=== PATIENT | male | born 1945 | race Caucasian/White ===

== ENCOUNTER 2017-12-05 13:13 | Observation (INO) | payer OTHER, MEDICARE ==
[2017-12-04 13:37] LABS: BASOPHILS # (AUTO) 0.1 (0.0-0.1); BASOPHILS % 0.8 % (0.0-1.0); EOSINOPHILS # (AUTO) 0.1 (0.0-0.4); EOSINOPHILS % 1.9 % (0.0-6.0); HEMATOCRIT 35.2 % (38.2-49.6); HEMOGLOBIN 11.5 g/dL (14.0-18.0); LYMPHOCYTES # (AUTO) 1.3 (1.0-3.2); MEAN CORPUSCULAR HEMOGLOBIN 30.3 pg (28-32); MEAN CORPUSCULAR HGB CONC 32.7 g/dL (31-35); MEAN CORPUSCULAR VOLUME 92.6 fL (81-99); MONOCYTES # (AUTO) 0.7 (0.2-0.8); MONOCYTES % 9.8 % (4.4-11.3); NEUTROPHILS # (AUTO) 4.8 (2.1-6.9); NEUTROPHILS % 66.9 % (38.7-80.0); PLATELET COUNT 327 x10e3/uL (140-360); RED CELL DISTRIBUTION WIDTH 15.8 % (11.7-14.4)
[2017-12-04 14:01] LABS: ALBUMIN 3.9 g/dL (3.5-5.0); ALBUMIN/GLOBULIN RATIO 1.2 (0.8-2.0); ANION GAP 13.3 mmol/L (8-16); CALCIUM 9.4 mg/dL (8.4-10.2); CREATININE, SERUM 1.24 mg/dL (0.72-1.25); POTASSIUM 4.3 mmol/L (3.5-5.1)
[2017-12-04 20:34] LABS: EOSINOPHILS % (MANUAL) 1 % (0-7); LYMPHOCYTES % (MANUAL) 11 % (19-48); MONOCYTES % (MANUAL) 8 % (3.4-9.0); NEUTROPHILS % (MANUAL) 79 % (40-74)
[2017-12-04 20:35] LABS: PLATELET ESTIMATE ADEQUATE; PLATELET MORPHOLOGY COMMENT NORMAL; RBC MORPHOLOGY COMMENT NORMAL
[~2017-12-05] VITALS: Ht 182.9 cm; Wt 87.8 kg
[2017-12-05 12:14] VITALS: BP 133/69
[2017-12-05 12:18] VITALS: BP 133/69
[~2017-12-05 13:13] MED LIST: ALPRAZOLAM 0.5 MG TAB ONE; ALPRAZOLAM 0.5 MG TAB PO ONE; ASPIR 8181 MG PO; CENTRUM SILVER1 EAC3 PO; CINNAMON500 MG PO; DILTIAZEM 24HR180 MG PO; DIPHENHYDRAMINE HCL 25 MG CAP ONE; DIPHENHYDRAMINE HCL 25 MG CAP PO ONE; FENTANYL CITRATE/PF 100MCG/2 ML INJ IV ONE; FENTANYL CITRATE/PF 100MCG/2 ML INJ ONE; FERROUS SULFAT325 M1 PO; FLOMAX0.4 MG PO; HEMATINIC-VITA1 EACH PO; HEPARIN SOD (PORCINE) 1000 UNIT/ML 30ML ONE; HEPARIN SOD/SOD CHLORIDE 2,000 ML ONE; HYDROCODON-ACE1 EA10; HYDROXYCHLOROQ200 MG PO; IOPAMIDOL 300MG/ML 100 ML INFUS..BTL IV ONE; KRILL OIL500 MG PO; LIDOCAINE HCL 2% LOCAL 20 ML VIAL ONE; LIPITOR20 MG; LISINOPRIL20 MG PO; METHSCOPOLAMINE5 MG PO; MIDAZOLAM HCL 2 MG/2 ML VIAL IV STA; MIDAZOLAM HCL 2 MG/2 ML VIAL ONE; NITROGLYCERIN/D5W 200 MCG/ML 250 ML ONE; NORCO 5-325 TA1 EACH PO; OMEPRAZOLE40 MG PO; OS-CAL 500+D T1 EACH; PLAVIX75 MG PO; POTASSIUM CHLO20 ME1 PO; POTASSIUM/MAGNESIUM; PREDNISONE5 MG PO; PROPRANOLOL HCL10 MG PO; SODIUM CHLORIDE 0.9% 1000ML 1,000 ML ONE; SULFASALAZINE500 MG PO; TRIAMTERENE-HCTZ1 EA PO; TURMERIC1 GM; TURMERIC500 MG; VERAPAMIL HCL 2.5 MG/ML 2 ML VIAL ONE; VITAMIN D400 UNI1 PO; [UNRECOGNIZED DRUG - OTHER] PO
[2017-12-05] MEDS ORDERED: SODIUM CHLORIDE 0.9% 1000ML 1,000 ML ONE (13:19)
[2017-12-05] MEDS ORDERED: PROTAMINE SULFATE 10 MG/ML 5 ML VIAL ONE (15:12)
[2017-12-05] MEDS ORDERED: SODIUM CHLORIDE 0.9% 50ML 50 ML ONE (15:12)
--- NOTE | 2017-12-05 16:19 | Operative Report ---
DATE OF PROCEDURE: December 05, 2017 INDICATIONS: Peripheral arterial disease with claudication and critical limb ischemia of the right lower extremity. PROCEDURES PERFORMED 1. Abdominal aortogram. 2. Bilateral lower extremity angiograms. 3. Selective placement of catheter from the left femoral artery to the right superficial femoral artery (3rd-order catheter placement). 4. Additional 3rd-order catheter placement from the left femoral artery to the right anterior tibial artery. 5. Atherectomy and drug-coated balloon angioplasty of the right common and superficial femoral arteries. 6. Angioplasty and stent placement to the right external iliac artery. COMPLICATIONS: None. RECOMMENDATIONS: Dual antiplatelet therapy for life. Aggressive medical therapy for peripheral arterial disease with staged intervention on the left common femoral artery. Access was obtained in the left femoral artery. A 6-Latvian sheath was placed. Abdominal aortogram demonstrated heavily calcified abdominal aorta and iliacs bilaterally. Right external iliac artery had an 80% stenosis. The catheter was then advanced from the left femoral artery to the right superficial femoral artery (3rd-order catheter placement). There was critical, heavily calcified, 80% stenosis of the right common femoral artery. The proximal right superficial femoral artery had a critical 99% stenosis with slow flow. The catheter was then advanced from the left femoral artery to the right anterior tibial artery, confirming 2-vessel runoff via the anterior tibial and peroneal arteries. The posterior tibial artery is occluded. A decision was made to intervene on the right iliac, common femoral, and superficial femoral arteries. The patient received 10,000 units of intra-arterial heparin with an ACT of 284. The lesion was crossed using a Glidewire, and the wire was exchanged to a ViperWire. Orbital atherectomy of the right common femoral and superficial femoral arteries was performed using a 1.5-mm crown. Large amounts of visible thrombus for which manual aspiration thrombectomy was required. Balloon angioplasty of the common and superficial femoral arteries was performed with 6 and 5 mm drug-coated balloon respectively with excellent end result, less than 10% residual stenosis with good flow. The right iliac artery was stented with an 8 x 40 mm self-expanding stent post dilated with a 7-mm balloon with excellent end result and 2-vessel runoff to the right foot. No complications. The left sheath was secured in place. The patient was administered 50 mg of protamine to reverse the heparin effect followed by manual removal of the left groin sheath. The patient will be observed in the hospital overnight. Discussion with family and recommendations as above. Job#: [id number]
[2017-12-05 16:30] VITALS: BP 113/56
[2017-12-05] MEDS ORDERED: HYDROMORPHONE 1MG/1ML INJ IV PRN (17:15)
[2017-12-05] MEDS ORDERED: HYDROMORPHONE 2MG/ML INJ IV PRN (17:30)
[2017-12-05 17:33] VITALS: BP 121/61
[2017-12-05 18:32] VITALS: BP 121/61
[2017-12-05 19:45] VITALS: BP 131/62
[2017-12-05] MEDS: HYDROCODONE/APAP 5MG-325MG TAB PO SCH (21:16)
[2017-12-06 00:20] VITALS: BP 116/58
[2017-12-06 05:00] VITALS: BP 154/67
[2017-12-06 07:10] LABS: BASOPHILS # (AUTO) 0.1 (0.0-0.1); EOSINOPHILS # (AUTO) 0.2 (0.0-0.4); EOSINOPHILS % 2.4 % (0.0-6.0); HEMATOCRIT 33.4 % (38.2-49.6); HEMOGLOBIN 10.9 g/dL (14.0-18.0); LYMPHOCYTES # (AUTO) 1.1 (1.0-3.2); LYMPHOCYTES % 15.6 % (18.0-39.1); MEAN CORPUSCULAR HEMOGLOBIN 30.1 pg (28-32); MEAN CORPUSCULAR HGB CONC 32.6 g/dL (31-35); MEAN CORPUSCULAR VOLUME 92.3 fL (81-99); MONOCYTES # (AUTO) 0.9 (0.2-0.8); MONOCYTES % 13.4 % (4.4-11.3); NEUTROPHILS # (AUTO) 4.4 (2.1-6.9); NEUTROPHILS % 66.1 % (38.7-80.0); PLATELET COUNT 268 x10e3/uL (140-360); RED BLOOD COUNT 3.62 x10e6/uL (4.3-5.7); RED CELL DISTRIBUTION WIDTH 15.7 % (11.7-14.4)
[2017-12-06 07:31] LABS: ANION GAP 11.7 mmol/L (8-16); BLOOD UREA NITROGEN 13 mg/dL (7-26); BUN/CREATININE RATIO 16 (6-25); CALCIUM 8.9 mg/dL (8.4-10.2); CARBON DIOXIDE 24 mmol/L (22-29); CHLORIDE 101 mmol/L (98-107); CREATININE, SERUM 0.79 mg/dL (0.72-1.25); EST GLOMERULAR FILTRATION RATE > 60 ML/MIN (60-); GLUCOSE 89 mg/dL (74-118); POTASSIUM 3.7 mmol/L (3.5-5.1); SODIUM 133 mmol/L (136-145)
[2017-12-06 07:41] VITALS: BP 125/59
[2017-12-06] MEDS ORDERED: LISINOPRIL 20 MG TAB PO SCH (09:00)
[2017-12-06] MEDS ORDERED: HYDROXYCHLOROQUINE SULFATE 200 MG TAB PO SCH (09:00)
[2017-12-06] MEDS ORDERED: PROPRANOLOL HCL 10 MG TAB PO SCH (09:00)
[2017-12-06] MEDS ORDERED: ATORVASTATIN 20 MG TAB PO SCH (09:00)
[2017-12-06] MEDS ORDERED: FERROUS SULFATE 325 MG TAB PO SCH (09:00)
[2017-12-06] MEDS: HYDROCODONE/APAP 5MG-325MG TAB PO SCH (09:00)
[2017-12-06] MEDS ORDERED: SULFASALAZINE 500 MG TAB PO SCH (09:00)
[2017-12-06] MEDS ORDERED: OYST-CAL-D 500MG TABLET PO SCH (09:00)
[2017-12-06] MEDS ORDERED: DILTIAZEM HCL 120 MG CAP CD PO SCH (09:00)
[2017-12-06] MEDS ORDERED: CLOPIDOGREL BISULFATE 75 MG TAB PO SCH (09:00)
[2017-12-06] MEDS ORDERED: DILTIAZEM HCL 180 MG CAP CD PO SCH ×2 (09:00)
[2017-12-06] MEDS ORDERED: TRIAMTERENE/HCTZ 37.5-25 MG TAB PO SCH (09:00)
[2017-12-06] MEDS ORDERED: ASPIRIN 81 MG CHEW TAB PO SCH (09:00)
[2017-12-06] MEDS ORDERED: PREDNISONE 5 MG TAB PO SCH (09:00)
[2017-12-06] MEDS ORDERED: PANTOPRAZOLE SOD 40 MG TABEC PO SCH (09:00)
[2017-12-06] MEDS ORDERED: TAMSULOSIN HCL 0.4 MG CAP PO SCH (09:00)
== END 2017-12-06 11:06 | disposition home or self-care (01) ==
LOC: CATH LAB 13:13 → IMCU 16:29
PROVIDERS: ADMIT Internal Medicine Interventional Cardiology; ATTEND Internal Medicine Interventional Cardiology
DX: I73.9 Peripheral vascular disease, unspecified (principal); I10 Essential (primary) hypertension
CPT/HCPCS: 36140; 36415; 37225; 37226; 75625; 75710; 77002; 80048; 80053; 80061; 85025; 92924; 93005; C1769; C2623; G0378; J1644; J2001; J2250; J2720; J7030; J7512; Q9967

== ENCOUNTER 2017-12-10 21:58 | Inpatient (IN) | payer OTHER, MEDICARE ==
[~2017-12-10] VITALS: Ht 182.9 cm; Wt 91.8 kg
[~2017-12-10 21:58] MED LIST changes: -ALPRAZOLAM 0.5 MG TAB ONE; -ALPRAZOLAM 0.5 MG TAB PO ONE; -DIPHENHYDRAMINE HCL 25 MG CAP ONE; -DIPHENHYDRAMINE HCL 25 MG CAP PO ONE; -FENTANYL CITRATE/PF 100MCG/2 ML INJ IV ONE; -FENTANYL CITRATE/PF 100MCG/2 ML INJ ONE; -HEPARIN SOD (PORCINE) 1000 UNIT/ML 30ML ONE; -HEPARIN SOD/SOD CHLORIDE 2,000 ML ONE; -IOPAMIDOL 300MG/ML 100 ML INFUS..BTL IV ONE; -LIDOCAINE HCL 2% LOCAL 20 ML VIAL ONE; -MIDAZOLAM HCL 2 MG/2 ML VIAL IV STA; -MIDAZOLAM HCL 2 MG/2 ML VIAL ONE; -NITROGLYCERIN/D5W 200 MCG/ML 250 ML ONE; -SODIUM CHLORIDE 0.9% 1000ML 1,000 ML ONE; -VERAPAMIL HCL 2.5 MG/ML 2 ML VIAL ONE
--- OUTSIDE RECORDS SUMMARY | 2017-12-10 22:01 | XMS REPORT | Continuity of Care Document ---
Author Author [facility] Organization [facility] Address [address] [place] [address] Phone Unavailable Care Team Providers Care Licensing Officer Name Role Phone CECILIO TO MD PCP Insurance Providers Guarantor Bin Boo Address [address] [place] [address] Email [email or web address] Payer Aetna Pos Policy Number [id number] Subscriber's Name Yanet Boo Relationship 01 Group Number [id number] Group Name [employer] Effective Date 13 Payer Medicare A & B Policy Number [id number] Subscriber's Name Bin Boo Jr Relationship 18 Self / Same As Patient Group Name RETIRED Effective Date 10 Advance Directives Directive Response Recorded Date/Time Does the patient have an advance directive? No 12/05/17 6:27pm If yes, is advance directive on file with [facility]? No 12/05/17 6:27pm If not on file with [facility] will patient provide a copy? Yes 12/05/17 6:27pm Do you have a Directive to Physician? No 12/04/17 12:43pm Do you have a Medical Power of Truck Dock Material Mover? No 12/04/17 12:43pm Do you have an out of hospital Do Not Resuscitate Order? No 12/04/17 12:43pm Do you have any special needs we should be aware of? No 12/04/17 12:43pm Do you have a support person here with you today? Yes 12/04/17 12:43pm Did patient receive Notice of Privacy Practices? Yes 12/04/17 12:44pm Did patient receive patient rights and responsibilities? Yes 12/04/17 12:44pm Problems No problem information available. Medications Current Home Medications Medication Dose Units Route Directions Days Qty Instructions Start Date Aspirin (Aspir 81) 81 Mg Tablet.dr Mg Oral Daily 30 Atorvastatin Calcium (Lipitor) 20 Mg Tablet 20 Mg Daily 30 Tab Calcium Carbonate/Vitamin D3 (Os-Jaxon 500+D Tablet) 1 Each Tablet 500 Mg Daily 30 Tab Cinnamon Bark (Cinnamon) 500 Mg Capsule 1,000 Mg Oral Daily Clopidogrel Bisulfate (Plavix) 75 Mg Tablet 75 Mg Oral Daily 30 Tab Diltiazem Hcl (Diltiazem 24HR Er) 180 Mg Capcr 300 Mg Oral Daily Ferrous Sulfate 325 Mg Tablet.dr 325 Mg Oral Daily Hydrocodone Bit/Acetaminophen (Sunset 5-325 Tablet) 1 Each Tablet 5 Tab Oral Three Times A Day Hydroxychloroquine Sulfate 200 Mg Tablet 200 Mg Oral Twice A Day Iron/Fa/Vitamin B Comp W-C/Min (Mfjzyiiri-Eseemgk-Wzevwkd Tab) 1 Each Tablet 1 Tab Oral Daily Krill Oil 500 Mg Capsule 500 Mg Oral Daily Lisinopril (Prinavil / Zestril) 20 Mg Tablet 30 Mg Oral Daily Methscopolamine Spraggs 5 Mg Tablet 5 Mg Oral Twice A Day Mu-Vits-Min Th/Lycopene/Lutein (Centrum Silver Tablet) 1 Each Tablet 1 Cap Oral Daily Omeprazole 40 Mg Capsule.dr 40 Mg Oral Daily Potassium/Magnesium 550 Mg PRESCRIBED Prednisone 5 Mg Tablet 5 Mg Oral Daily Propranolol Hcl 10 Mg Tablet 10 Mg Oral Twice A Day Sulfasalazine 500 Mg Tab 500 Mg Oral Twice A Day 30 Tab Tamsulosin Hcl (Flomax*) 0.4 Mg Cap 0.4 Mg Oral Daily 30 Cap Triamterene/Hctz (Triamterene-Hctz 37.5-25 Mg Tb) 1 Ea Tab 37.5 Mg Oral Daily Turmeric 1 Gm Powder Use As Directed PRESCRIBED Past Home Medications Medication Directions Ordered Status Cholecalciferol (Vitamin D) 400 Unit Tab, 500 Mg Oral Daily Discontinued Hematinic Plus , 1 Cap Oral Daily Discontinued Hydrocodone Bit/Acetaminophen (Hydrocodon-Acetaminophen 5-300) 1 Each Tablet, Discontinued Potassium Chloride 20 Meq Tab.er.prt, 550 Mg Oral Daily Discontinued Turmeric Root Extract (Turmeric) 500 Mg Capsule, Discontinued Social History Social History Problem Response Recorded Date/Time Onset Date Status Hx Psychiatric Problems No 12/05/2017 6:27pm Not Applicable Not Applicable Hx Eating Disorder No 12/05/2017 6:27pm Not Applicable Not Applicable Hx Substance Use Disorder No 12/05/2017 6:27pm Not Applicable Not Applicable Hx Depression No 12/05/2017 6:27pm Not Applicable Not Applicable Hx Alcohol Use Y - "BEER SELDOMLY" 12/05/2017 6:27pm Not Applicable Not Applicable Hx Substance Use Treatment No 12/05/2017 6:27pm Not Applicable Not Applicable Hx Physical Abuse No 12/05/2017 6:27pm Not Applicable Not Applicable Smoking Status Start Date Stop Date Former smoker Hospital Discharge Instructions No hospital discharge instruction information available. Plan of Care Discharge Date 12/06/17 11:06am Disposition HOME, SELF-CARE Instructions/Education Provided Post Operative Pain Prescriptions See Medication Section Referrals STEVENSON BRANDON MD (Cardiology) Order Date: 2 Weeks Entered Date: 12/06/2017 10:28am Address: [address] [place] [id number] Functional Status Query Response Date Recorded Assistive Devices None December 05, 2017 6:32pm Ambulation Ability Independent December 05, 2017 6:32pm Toileting Ability Independent December 05, 2017 6:32pm Allergies, Adverse Reactions, Alerts Allergen Type Severity Reaction Status Last Updated Penicillin Allergy Severe rash Active 09/17/16 Immunizations No immunization information available. Vital Signs Acute Vital Signs Vital Response Date/Time Temperature (Fahrenheit) 97.2 degrees F (97.6 - 99.5) 12/06/2017 7:43am Pulse Pulse Rate (adult) 89 bpm (60 - 90) 12/06/2017 7:41am Respiratory Rate 16 bpm (12 - 24) 12/06/2017 7:41am Blood Pressure 125/59 mm Hg 12/06/2017 7:41am Height 6 ft 0 in 12/04/2017 1:30pm Weight 193.56 lb 12/06/2017 12:20am Body Mass Index 26.3 kg/m^2 12/06/2017 12:20am Results Laboratory Results Test Name Result Units Flags Reference Collection Date/Time Result Date/ Time Comments White Blood Count 6.72 x10e3/uL 4.8-10.8 12/06/2017 7:00am 12/06/2017 7 :20am Red Blood Count 3.62 x10e6/uL L 4.3-5.7 12/06/2017 7:00am 12/06/2017 7: 20am Hemoglobin 10.9 g/dL L 14.0-18.0 12/06/2017 7:00am 12/06/2017 7:20am Hematocrit 33.4 % L 38.2-49.6 12/06/2017 7:00am 12/06/2017 7:20am Mean Corpuscular Volume 92.3 fL 81-99 12/06/2017 7:00am 12/06/2017 7: 20am Mean Corpuscular Hemoglobin 30.1 pg 28-32 12/06/2017 7:00am 12/06/2017 7:20am Mean Corpuscular Hemoglobin Concent 32.6 g/dL 31-35 12/06/2017 7:00am 12/06/2017 7:20am Red Cell Distribution Width 15.7 % H 11.7-14.4 12/06/2017 7:00am 2017 7:20am Platelet Count 268 x10e3/uL 140-360 12/06/2017 7:00am 12/06/2017 7: 20am Neutrophils (%) (Auto) 66.1 % 38.7-80.0 12/06/2017 7:00am 12/06/2017 7: 20am Lymphocytes (%) (Auto) 15.6 % L 18.0-39.1 12/06/2017 7:00am 12/06/2017 7 :20am Monocytes (%) (Auto) 13.4 % H 4.4-11.3 12/06/2017 7:00am 12/06/2017 7: 20am Eosinophils (%) (Auto) 2.4 % 0.0-6.0 12/06/2017 7:00am 12/06/2017 7: 20am Basophils (%) (Auto) 1.0 % 0.0-1.0 12/06/2017 7:00am 12/06/2017 7:20am IM GRANULOCYTES % 1.5 % H 0.0-1.0 12/06/2017 7:00am 12/06/2017 7:20am Neutrophils # (Auto) 4.4 2.1-6.9 12/06/2017 7:00am 12/06/2017 7:20am Lymphocytes # (Auto) 1.1 1.0-3.2 12/06/2017 7:00am 12/06/2017 7:20am Monocytes # (Auto) 0.9 H 0.2-0.8 12/06/2017 7:00am 12/06/2017 7:20am Eosinophils # (Auto) 0.2 0.0-0.4 12/06/2017 7:00am 12/06/2017 7:20am Basophils # (Auto) 0.1 0.0-0.1 12/06/2017 7:00am 12/06/2017 7:20am Absolute Immature Granulocyte (auto 0.10 x10e3/uL 0-0.1 12/06/2017 7: 00am 12/06/2017 7:20am Differential Total Cells Counted 100 12/04/2017 1:30pm 12/04/2017 8 :35pm Neutrophils % (Manual) 79 % H 40-74 12/04/2017 1:30pm 12/04/2017 8:35pm Lymphocytes % (Manual) 11 % L 19-48 12/04/2017 1:30pm 12/04/2017 8:35pm Monocytes % (Manual) 8 % 3.4-9.0 12/04/2017 1:30pm 12/04/2017 8:35pm Eosinophils % (Manual) 1 % 0-7 12/04/2017 1:30pm 12/04/2017 8:35pm Reactive Lymphocytes 1 12/04/2017 1:30pm 12/04/2017 8:35pm Platelet Estimate ADEQUATE 12/04/2017 1:30pm 12/04/2017 8:35pm Platelet Morphology Comment NORMAL 12/04/2017 1:30pm 12/04/2017 8: 35pm Red Cell Morphology Comment NORMAL 12/04/2017 1:30pm 12/04/2017 8: 35pm Sodium Level 133 mmol/L L 136-145 12/06/2017 7:00am 12/06/2017 7:42am Potassium Level 3.7 mmol/L 3.5-5.1 12/06/2017 7:00am 12/06/2017 7:42am Chloride Level 101 mmol/L 98-107 12/06/2017 7:00am 12/06/2017 7:42am Carbon Dioxide Level 24 mmol/L 22-29 12/06/2017 7:00am 12/06/2017 7: 42am Anion Gap 11.7 mmol/L 8-16 12/06/2017 7:00am 12/06/2017 7:42am Blood Urea Nitrogen 13 mg/dL 7-12/06/2017 7:00am 12/06/2017 7:42am Creatinine 0.79 mg/dL 0.72-1.25 12/06/2017 7:00am 12/06/2017 7:42am BUN/Creatinine Ratio 16 6-25 12/06/2017 7:00am 12/06/2017 7:42am Estimat Glomerular Filtration Rate > 60 ML/MIN 60- 12/06/2017 7:00am 7:42am Ranges were taken from the National Kidney Disease Education Program and the National Kid[employer] Foundation literature. Reference ranges: 60 or greater: Normal 16-59 (for 3 consecutive months): Chronic kidney disease 15 or less: Kidney failure Glucose Level 89 mg/dL 74-118 12/06/2017 7:00am 12/06/2017 7:42am Calcium Level 8.9 mg/dL 8.4-10.2 12/06/2017 7:00am 12/06/2017 7:42am Total Bilirubin 0.5 mg/dL 0.2-1.2 12/04/2017 1:30pm 12/04/2017 2:04pm Aspartate Amino Transf (AST/SGOT) 27 IU/L 5-34 12/04/2017 1:30pm 2017 2:04pm Alanine Aminotransferase (ALT/SGPT) 24 IU/L 0-55 12/04/2017 1:30pm 11/2017 2:04pm Total Protein 7.2 g/dL 6.5-8.1 12/04/2017 1:30pm 12/04/2017 2:04pm Albumin 3.9 g/dL 3.5-5.0 12/04/2017 1:30pm 12/04/2017 2:04pm Globulin 3.3 g/dL 2.3-3.5 12/04/2017 1:30pm 12/04/2017 2:04pm Albumin/Globulin Ratio 1.2 0.8-2.0 12/04/2017 1:30pm 12/04/2017 2: 04pm Alkaline Phosphatase 53 IU/L 40-150 12/04/2017 1:30pm 12/04/2017 2: 04pm Triglycerides Level 123 MG/DL 0-149 12/04/2017 1:30pm 12/04/2017 2: 04pm Cholesterol Level 162 MD/DL 0-199 12/04/2017 1:30pm 12/04/2017 2:04pm Less than 200 mg/dL Low Risk 201 - 239 mg/dL Borderline Risk 240 mg/dl and greater High Risk LDL Cholesterol 96 MG/DL 60-130 12/04/2017 1:30pm 12/04/2017 2:04pm HDL Cholesterol 41 MG/DL 40-60 12/04/2017 1:30pm 12/04/2017 2:04pm Cholesterol/HDL Ratio 4.0 3.9-4.7 12/04/2017 1:30pm 12/04/2017 2: 04pm Procedures Procedure Status Date Provider(s) FEM/POPL REVAS W/ATHER Completed 05/26/17 STEVENSON BRANDON MD Encounters Encounter Location Arrival/Admit Date Discharge/Depart Date Attending Provider Discharged Inpatient (obs) [facility] 12/05/17 4:29pm 01/18 11:06am STEVENSON BRANDON MD Discharged Inpatient (obs) [facility] 05/26/17 2:45pm 9:11am STEVENSON BRANDON MD
[2017-12-10] MEDS ORDERED: SODIUM CHLORIDE 0.9% 1000ML 1,000 ML IV ONE ×2 (22:15)
[2017-12-10] MEDS ORDERED: DIATRIZOATE MEGL/DIATRIZOA SOD 30 ML BTL PO ONE (22:20)
[2017-12-10 22:26] LABS: BASOPHILS # (AUTO) 0.1 (0.0-0.1); BASOPHILS % 0.7 % (0.0-1.0); EOSINOPHILS # (AUTO) 0.3 (0.0-0.4); EOSINOPHILS % 3.5 % (0.0-6.0); HEMATOCRIT 32.3 % (38.2-49.6); HEMOGLOBIN 10.6 g/dL (14.0-18.0); LYMPHOCYTES # (AUTO) 1.9 (1.0-3.2); LYMPHOCYTES % 21.2 % (18.0-39.1); MEAN CORPUSCULAR HEMOGLOBIN 30.2 pg (28-32); MEAN CORPUSCULAR HGB CONC 32.8 g/dL (31-35); MONOCYTES # (AUTO) 1.5 (0.2-0.8); MONOCYTES % 16.9 % (4.4-11.3); NEUTROPHILS % 56.2 % (38.7-80.0); PLATELET COUNT 324 x10e3/uL (140-360); RED BLOOD COUNT 3.51 x10e6/uL (4.3-5.7); RED CELL DISTRIBUTION WIDTH 16.1 % (11.7-14.4)
[2017-12-10 22:35] LABS: INR 1.05; PROTHROMBIN TIME 14.2 seconds (11.9-14.5)
[2017-12-10 22:36] LABS: PARTIAL THROMBOPLASTIN TIME 36.4 seconds (23.8-35.5)
[2017-12-10 22:42] LABS: ALBUMIN 3.5 g/dL (3.5-5.0); ALBUMIN/GLOBULIN RATIO 0.9 (0.8-2.0); ANION GAP 21.9 mmol/L (8-16); CALCIUM 9.3 mg/dL (8.4-10.2); CREATININE, SERUM 4.5 mg/dL (0.72-1.25); POTASSIUM 3.9 mmol/L (3.5-5.1)
[2017-12-10 22:48] LABS: B-TYPE NATRIURETIC PEPTIDE2 < 10.0 pg/mL (0-100)
--- NOTE | 2017-12-10 22:54 | Diagnostic Imaging Report ---
EXAMINATION: CHEST SINGLE (PORTABLE) INDICATION: Short of breath, weakness. Low blood pressure COMPARISON: None FINDINGS: TUBES and LINES: None. LUNGS: Lungs are not well inflated. There are bibasilar atelectasis. There is mild prominence of the central pulmonary vasculature, consistent with pulmonary venous congestion. PLEURA: No pleural effusion or pneumothorax. HEART AND MEDIASTINUM: Cardiac size is moderately enlarged. There are atherosclerotic calcifications within the aorta. BONES AND SOFT TISSUES: No acute osseous lesion. Soft tissues are unremarkable. UPPER ABDOMEN: No free air under the diaphragm. IMPRESSION: No acute thoracic abnormality. Signed by: Dr. Dong Díaz M.D. on 12/10/2017 10:50 PM
[2017-12-10] MEDS ORDERED: SODIUM CHLORIDE 0.9% 1000ML 1,000 ML IV SCH (23:45)
[2017-12-11] VITALS (7 sets, daily range): BP systolic 109–141; BP diastolic 60–74
--- NOTE | 2017-12-11 00:27 | Diagnostic Imaging Report ---
EXAM: CT Abdomen and Pelvis WITHOUT contrast INDICATION: Retroperitoneal bleeding COMPARISON: None. TECHNIQUE: Abdomen and pelvis were scanned utilizing a multidetector helical scanner from the lung base to the pubic symphysis without administration of IV contrast. Absence of intravenous contrast decreases sensitivity for detection of focal lesions and vascular pathology. Coronal and sagittal reformations were obtained. Routine protocol was performed. IV CONTRAST: None. ORAL CONTRAST: Gastrografin RADIATION DOSE: Total DLP: 457.06 mGy*cm Estimated effective dose: (DLP x 0.015 x size factor) mSv COMPLICATIONS: None FINDINGS: LINES and TUBES: None. LOWER THORAX: Bibasilar atelectasis are present. There is a confluent area of airspace disease in the right lower lobe with air bronchograms best seen on series 2, image 5 and coronal image 78 suspicious for developing infection or neoplasm. HEPATOBILIARY: No focal hepatic lesions. No biliary ductal dilation. GALLBLADDER: No radio-opaque stones or sludge. No wall thickening. SPLEEN: No splenomegaly. PANCREAS: No focal masses or ductal dilatation. ADRENALS: No adrenal nodules KIDNEYS/URETERS: No hydronephrosis. No cystic or solid mass lesions. No stones. GI TRACT: No abnormal distention, wall thickening, or evidence of bowel obstruction. Appendix is normal. PELVIC ORGANS/BLADDER: Unremarkable. LYMPH NODES: No lymphadenopathy. VESSELS: There is severe atherosclerotic disease in the aorta and major arterial branches. PERITONEUM / RETROPERITONEUM: No free air or fluid. BONES: There are severe degenerative changes in the lumbar spine. SOFT TISSUES: Unremarkable. IMPRESSION: 1. Right lower lobe airspace disease, confluent suspicious for pneumonia versus low-grade neoplasm. Follow-up with CT of the chest in 3 months after treatment is recommended. 2. No evidence of retroperitoneal hematoma or bleeding. Signed by: Dr. Dong Díaz M.D. on 12/11/2017 12:24 AM
--- OUTSIDE RECORDS SUMMARY | 2017-12-11 00:56 | XMS REPORT ---
Author Author [facility] Address Unknown Phone Unavailable Care Team Providers Care Plant Tech Name Role Phone NESSA ZENG Unavailable Unavailable Problems This patient has no known problems. Allergies, Adverse Reactions, Alerts This patient has no known allergies or adverse reactions. Medications This patient has no known medications. Results Test Description Test Time Test Comments Text Results Atomic Results Result Comments CT ABDOMEN/PELVIS WO [place] [address] Patient Name: TITA WEEKS MR #: [id number] : 1945 Age/Sex: 72/M Req #: [id number] Adm Physician: Ordered by: NESSA ZENG MD Report #: [id number] Location: ER Room/Bed: ___ Procedure: [id number] CT/CT ABDOMEN/PELVIS WO Exam Date: 12/10/17 Exam Time: 2350 REPORT STATUS: Signed EXAM: CT Abdomen and Pelvis WITHOUT contrast INDICATION: Retroperitoneal bleeding COMPARISON: None. TECHNIQUE: Abdomen and pelvis were scanned utilizing a multidetector helical scanner from the lung base to the pubic symphysis without administration of IV contrast. Absence of intravenous contrast decreases sensitivity for detection of focal lesions and vascular pathology. Coronal and sagittal reformations were obtained. Routine protocol was performed. IV CONTRAST: None. ORAL CONTRAST: Gastrografin RADIATION DOSE: Total DLP: 457.06 mGy*cm Estimated effective dose: (DLP x 0.015 x size factor) mSv COMPLICATIONS: None FINDINGS: LINES and TUBES: None. LOWER THORAX : Bibasilar atelectasis are present. There is a confluent area of airspace disease in the right lower lobe with air bronchograms best seen on series 2, image 5 and coronal image 78 suspicious for developing infection or neoplasm. HEPATOBILIARY: No focal hepatic lesions. No biliary ductal dilation. GALLBLADDER: No radio-opaque stones or sludge. No wall thickening. SPLEEN: No splenomegaly. PANCREAS: No focal masses or ductal dilatation. ADRENALS: No adrenal nodules KIDNEYS/URETERS: No hydronephrosis. No cystic or solid mass lesions. No stones. GI TRACT: No abnormal distention, wall thickening, or evidence of bowel obstruction. Appendix is normal. PELVIC ORGANS/BLADDER: Unremarkable. LYMPH NODES: No lymphadenopathy. VESSELS: There is severe atherosclerotic disease in the aorta and major arterial branches. PERITONEUM / RETROPERITONEUM: No free air or fluid. BONES: There are severe degenerative changes in the lumbar spine. SOFT TISSUES: Unremarkable. IMPRESSION: 1. Right lower lobe airspace disease, confluent suspicious for pneumonia versus low-grade neoplasm. Follow-up with CT of the chest in 3 months after treatment is recommended. 2. No evidence of retroperitoneal hematoma or bleeding. Signed by: Dr. Dong Díaz M.D. on 12:24 AM Dictated By: DONG ZAMUDIO MD Transcribed By: HARRIETT on 12/11/1723 COPY TO: NESSA ZENG MD CHEST SINGLE (PORTABLE) [place] [address] Patient Name: TITA WEEKS MR #: [id number] : 1945 Age/Sex: 72/M Req #: [id number] Adm Physician: Ordered by: NESSA ZENG MD Report #: [id number] Location: ER Room/Bed: ___ Procedure: [id number] DX/CHEST SINGLE (PORTABLE) Exam Date: 12/10/17 Exam Time: 2220 REPORT STATUS: Signed EXAMINATION: CHEST SINGLE (PORTABLE) INDICATION: Short of breath, weakness. Low blood pressure COMPARISON: None FINDINGS : TUBES and LINES: None. LUNGS: Lungs are not well inflated. There are bibasilar atelectasis. There is mild prominence of the central pulmonary vasculature, consistent with pulmonary venous congestion. PLEURA: No pleural effusion or pneumothorax. HEART AND MEDIASTINUM: Cardiac size is moderately enlarged. There are atherosclerotic calcifications within the aorta. BONES AND SOFT TISSUES: No acute osseous lesion. Soft tissues are unremarkable. UPPER ABDOMEN: No free air under the diaphragm. IMPRESSION: No acute thoracic abnormality. Signed by: Dr. Dong Díaz M.D. on 12/10/2017 10:50 PM Dictated By: DONG ZAMUDIO MD [id number] COPY TO: NESSA ZENG MD
[2017-12-11] MEDS ORDERED: CEFTRIAXONE SOD 1 GM VIAL IV SCH (01:00)
[2017-12-11] MEDS: SODIUM BICARBONATE 8.4% SYRING 75 ML in SODIUM CHLORIDE 0.45% 1,000 ML IV SCH ×3 (01:19→15:05)
[2017-12-11] MEDS: AZITHROMYCIN 500MG/NS 250 ML 250 ML IV SCH (01:43)
[2017-12-11 01:54] LABS: KETONES,URINE NEGATIVE (NEGATIVE); LEUKOCYTE ESTERASE ,URINE NEGATIVE (NEGATIVE); NITRITE,URINE NEGATIVE (NEGATIVE); PROTEIN,URINE DIPSTICK NEGATIVE (NEGATIVE); URINE UROBILINOGEN 0.2 mg/dL (0.2 - 1)
[2017-12-11 01:55] LABS: BILIRUBIN,URINE 1+ (NEGATIVE); CLARITY,URINE SL CLOUDY (CLEAR); COLOR,URINE AMBER (YELLOW)
[2017-12-11 02:06] LABS: BACTERIA,URINE FEW /HPF
[2017-12-11 02:07] LABS: EPITHELIAL CELLS,URINE FEW /LPF
--- NOTE | 2017-12-11 10:57 | Consultation ---
DATE OF CONSULTATION: December 11, 2017 CARDIOLOGY CONSULTATION REASON FOR CONSULTATION: Coronary artery disease and peripheral arterial disease with recent angioplasty of the right external iliac artery. HISTORY OF PRESENT ILLNESS: This is a 72-year-old man with a history of peripheral arterial disease, status post recent atherectomy and drug-coated balloon angioplasty of the right common femoral and superficial femoral arteries, as well as angioplasty and stent placement of the right external iliac artery, and hypertension, who presented with complaints of weakness. He had been doing well post angiogram until Friday when he began to feel weak and lightheaded. He noted his blood pressure has been running low since Friday with readings as low as 70/40. He denies any chest pain, shortness of breath, palpitations, orthopnea, or PND, but indicates he has not really been eating due to weakness. He began having diarrhea on Friday, and noted lower extremity edema starting last night when he arrived to the ER. Upon arrival to the ER, he was found to have acute kidney injury with creatinine of 4.5 and hyponatremia. He was anemic, but this was not significantly changed from his prior test results. CT of the chest was performed, which revealed a right lower lobe airspace disease suspicious for pneumonia versus low-grade neoplasm. There was no evidence of retroperitoneal hemorrhage or bleeding. He was admitted for further evaluation. REVIEW OF SYSTEMS: Negative and as per HPI. PAST MEDICAL HISTORY: Peripheral arterial disease, status post atherectomy and drug-coated balloon angioplasty of the right common femoral and superficial femoral arteries, as well as angioplasty and stent placement to the right external iliac artery, hypertension, moderate coronary artery disease. ALLERGIES: PENICILLIN. MEDICATIONS: Please see medication list. SOCIAL HISTORY: Former smoker who quit in 1997. No alcohol or drugs. FAMILY HISTORY: Noncontributory to current admission. PHYSICAL EXAMINATION VITALS: Temperature 98.4, pulse 70, respiratory rate 18, blood pressure 109/70, oxygen saturation 100% on room air. GENERAL: Awake, alert and in no acute distress. Well-developed, well-nourished. HEENT: Normocephalic and atraumatic. Pupils equal. No scleral icterus. NECK: Supple. No thyromegaly or cervical lymphadenopathy or carotid bruits. LUNGS: Clear to auscultation bilaterally other than decreased breath sounds at the right base. No wheezes or crackles. CARDIOVASCULAR: Normal rate and regular rhythm. No murmur. Normal S1 and S2. ABDOMEN: Soft and nontender. EXTREMITIES: One plus pitting edema at the ankles. NEURO: Nonfocal exam. LABS: WBC 8.86, hemoglobin 10.6, hematocrit 32.3, and platelets 324,000. Sodium 138, potassium 3.9, chloride 97, CO2 15, BUN 55, creatinine 4.5, lactic acid 25.6. Troponin I 0.033. BNP less than 10. EKG is sinus tachycardia with block, PACs, left axis deviation, and right bundle branch block. IMPRESSION 1. Acute kidney injury. 2. Lactic acidosis. 3. Pneumonia. 4. Hyponatremia. 5. Peripheral arterial disease: Status post recent atherectomy with angioplasty of the right common and superficial femoral artery, as well as angioplasty with stent placement of the right external iliac artery. 6. Chronic anemia. 7. Moderate coronary artery disease. 8. Hypertension, currently hypotensive. RECOMMENDATIONS: Will obtain echocardiogram. Agree with trial of fluids. Antibiotics per primary service. Further evaluation of acute kidney injury per nephrology. Continue home cardiac medications. Continue dual antiplatelet therapy, as well as statin. Hold antihypertensive therapy given hypotension on presentation. Thank you for this consult. We will continue to follow. Job#: [id number] SALINAS GUALLPA
--- NOTE | 2017-12-11 12:09 | Diagnostic Imaging Report ---
PROCEDURE:US RETROPERITONEAL ( KIDNEY ). COMPARISON:None. INDICATIONS:Acute Renal Injury TECHNIQUE: Florentino-scale and color sonographic images of the bilateral kidneys and bladder where obtained in transverse and longitudinal planes. FINDINGS: RIGHT KIDNEY: 11.2 x 6.2 x 4.7 cm, cortex 1.4 cm Cysts: None Solid masses: None Stones: None Hydronephrosis: None Echogenicity: Increased LEFT KIDNEY: 10.7 x 5.3 x 5.2 cm, cortex 1.4 cm Cysts: None Solid masses: None Stones: None Hydronephrosis: None Echogenicity: Increased Bladder: None Prostate: 3.5 x 2.8 x 4.1 cm (20.9 cc), not enlarged. CONCLUSION: 1. No hydronephrosis. 2. Increased renal echogenicity in keeping with medical renal disease. Dictated by: Von Orellana M.D. on 12/11/2017 at 12:19 Electronically approved by: Von Orellana M.D. on 12/11/2017 at 12:19
[2017-12-11] MEDS ORDERED: HYDRALAZINE HCL 20 MG/ML VIAL IV PRN (14:45)
--- NOTE | 2017-12-11 15:13 | History and Physical ---
ADDENDUM TO HISTORY AND PHYSICAL ADDENDUM 1. Please add rheumatoid arthritis to the patient's past medical history. 2. Please add right lower lobe pneumonia to the assessment and plan. The patient will receive IV Zithromax and Rocephin. Job#: [id number]
--- NOTE | 2017-12-11 15:50 | History and Physical ---
PRIMARY CARE PROVIDER: Dr. Roberto Raymond. CHIEF COMPLAINT: Weak and dizzy. HISTORY OF PRESENT ILLNESS: Mr. Boo is a 72-year-old gentleman who had elective angioplasty and drug-eluting stent placement in the right superficial and common femoral arteries a week ago Friday. A couple of days later, the patient started feeling weak, his blood pressure was down, and he was instructed to come to the emergency room for evaluation. REVIEW OF SYSTEMS: Patient denies fever, chills or weight loss. He denies sinus congestion or sore throat. He denies chest pain or palpitations. He denies shortness breath, wheezing or cough. He denies abdominal pain, nausea, vomiting or melena. He denies dysuria or flank pain. He denies rash or pruritus. He denies bleeding or bruising. He denies headache, vertigo or loss of consciousness. He denies depression, agitation, homicidal or suicidal ideation. PAST MEDICAL HISTORY: Significant for longstanding hypertension and peripheral arterial disease. Patient denies any history of heart disease. He had a recent percutaneous intervention with drug-eluting stent placement in the right common and superficial femoral arteries a week ago. His regular medications include: Aspirin 81 mg daily. Calcium + vitamin D daily. Diltiazem 300 mg daily. Ferrous sulfate 325 mg daily. Lisinopril 30 mg daily. Prednisone 5 mg daily. Dyazide 37.5/25 mg daily. Fish oil. Multivitamins. Lipitor 20 mg daily. Plavix 75 mg daily. Hydrocodone as needed. Plaquenil 200 mg twice daily. Omeprazole 40 mg q.a.m. Propranolol 10 mg twice daily. Sulfasalazine 500 mg twice daily. Flomax 0.4 mg daily. ALLERGIES: HE HAD A STATED ALLERGY TO PENICILLIN. FAMILY HISTORY: Significant for hypertension. SOCIAL HISTORY: The patient is , here with his . He is . Yakut is his primary language. He quit smoking in 1997 after 1 to 2 packs per day for 10 years. He drinks very rarely. He does not use illegal drugs, and he is generally independently functioning. PHYSICAL EXAM: PSYCHIATRIC: He is alert and oriented times 3 with normal mood and affect. CONSTITUTIONAL: He has a normal body habitus. Is in no acute distress. VITAL SIGNS: Blood pressure 127/71. It was 72/59 on arrival. Pulse 80 and regular, was 68 on arrival. Respiratory rate 18. O2 sat 97% on room air. Temperature 98.5. HEENT: His head is atraumatic. His eyes are anicteric with clear conjunctivae. Ears and nares are without erythema or discharge. Oropharynx is clear. NECK: Supple with no mass or thyromegaly. LYMPHATIC SYSTEM: He has no palpable cervical, axillary or inguinal adenopathy. CARDIOVASCULAR SYSTEM: His heart has a regular rate and rhythm without murmur or extra heart sound. He has no carotid bruit. He has no peripheral edema. He has very weak dorsal pedal pulses. RESPIRATORY: Lungs are clear to auscultation and percussion with normal respiratory effort. GASTROINTESTINAL: His abdomen is soft without organomegaly, masses or tenderness. He has normal bowel sounds present. CUTANEOUS: His skin is warm and dry to the touch with no rash or skin breakdown. MUSCULOSKELETAL: His joints are in normal alignment without erythema or swelling. He has no calf tenderness. NEUROLOGIC: Exam is nonfocal with intact cranial nerves and no motor or sensory deficits. DIAGNOSTIC STUDIES: Chest x-ray shows no acute disease. CT scan of the abdomen shows right lower lobe opacity, possible pneumonia. Renal ultrasound shows chronic kidney disease changes. His UA has 6 to 10 red cells and 6 to 10 white cells. Culture is pending. His lactic acid 25.6, initially high. Repeat was 7.1. BNP less than 10. Troponin 0.033. Chemistry shows normal electrolytes. CO2 15. Creatinine 4.50, BUN 55 for a GFR of 13 when it was 57 to 60 a week ago. Calcium 9.3. Glucose 106. Transaminases, bilirubin, alk phos are normal. CBC shows a white count of 8.86 with a normal differential. Hemoglobin 10.6, hematocrit 32.3 and platelet count 324,000. IMPRESSION AND PLAN: 1. Dehydration and acute kidney injury possibly acute tubular necrosis due to dye contrast. The patient will be getting IV fluids, large-volume IV fluids 150 an hour with bicarb added to normal saline. Nephrology has been consulted for assistance. 2. Recent percutaneous angioplasty, right femoral artery. Will consult Dr. Valencia, who did the procedure. 3. Hypertension. Will hold the patient's blood pressure medications for now, especially the lisinopril and the diltiazem. Will hydrate first and then adjust blood pressure medication later. 4. Rheumatoid arthritis. Will continue his Plaquenil and sulfasalazine. 5. For prophylaxis, the patient will be on Protonix for GI prophylaxis. Job#: [id number] EV
--- NOTE | 2017-12-11 16:13 | Consultation ---
DATE OF CONSULTATION: December 11, 2017 RENAL CONSULTATION History predominantly from patient. HISTORY OF PRESENT ILLNESS: A 72-year-old gentleman seen in the emergency room. Has underlying history of coronary artery disease status post PCI, history of congestive heart failure, cardiomegaly, prostate enlargement. No prior history of any kidney insufficiency. Came in because he states he was hypotensive. Currently lying supine, ready to get an echocardiogram done. Chest x-ray shows evidence of huge cardiomegaly with a possible infiltrate right and left lower zone. Left lung field relatively obscured by the cardiac shadow, but right lung field shows evidence of possible infiltrate. This is per my exam. Laboratory test shows a white count 8.86, hemoglobin 10.6. Sodium 130, potassium 3.9, bicarbonate 15, creatinine 4.5. CK 292. Total protein 7.3. Globulin 3.8. ALLERGIES: TO PENICILLIN. LABORATORY: Urinalysis specific gravity 1.020. Urine WBC 6-10, RBC 6-10. Urine culture is pending. CURRENT MEDICATIONS: Patient is on azithromycin. Received normal saline 2 liters bolus. Currently on sodium chloride with bicarbonate, which I am going to stop. He is on atorvastatin 20 mg at bedtime, ceftriaxone 1 gram q.24, Plavix 75 mg daily, hydralazine, hydrocodone p.r.n. He is on hydroxychloroquine sulfate 200 mg p.o. b.i.d., pantoprazole, propranolol, sulfasalazine 500 mg p.o. b.i.d., and Flomax 0.4 mg daily. SOCIAL HISTORY: He does not smoke or drink. Patient denies prior history of diabetes. Denies history of MD or CVA. PHYSICAL EXAMINATION: GENERAL: Awake, alert, lying supine. No apparent distress. VITALS: Blood pressure 132/60, pulse rate 80, afebrile, oxygen saturation 100% on 2 liters nasal cannula. HEAD AND NECK: Cornea clear. Oral mucosa dry. LUNGS: Rales noted right lower zone. Left lung field relatively clear. HEART: S1 and S2 audible. ABDOMEN: Otherwise soft, nontender. LOWER EXTREMITY EXAMINATION: No edema. IMPRESSION: Acute kidney injury in a patient who denies any prior history of any kidney insufficiency. He has quite concentrated urine. Urine culture pending. CK normal. Will obtain a stat BNP level. Has evidence of distal renal tubular acidosis. Will have a stat Gillette catheter placed. Stat kidney ultrasound if not done. Will start IV bicarbonate. Sodium is low; so, I will be using 1/4 NS with 2 amp sodium bicarbonate IV at 80 mL an hour. No evidence of overt congestive heart failure. Echo pending. Multiple comorbids. Please see orders. Etiology of acute kidney injury possible dehydration, plus patient was on triamterene-hydrochlorothiazide and other diuretics at home. Must rule out ATN. Discussed with RN. Job#: [id number] EV
[2017-12-11] MEDS: CLOPIDOGREL BISULFATE 75 MG TAB PO SCH (16:23)
[2017-12-11] MEDS: SULFASALAZINE 500 MG TAB PO SCH (16:23)
[2017-12-11] MEDS: PROPRANOLOL HCL 10 MG TAB PO SCH (16:24)
[2017-12-11] MEDS: HYDROXYCHLOROQUINE SULFATE 200 MG TAB PO SCH (16:24)
[2017-12-11] MEDS: SODIUM BICARBONATE 8.4% 75 ML in SODIUM CHLORIDE 0.45% 1,000 ML IV SCH (17:05)
[2017-12-11] MEDS: ATORVASTATIN 20 MG TAB PO SCH (21:10)
[2017-12-12] VITALS (9 sets, daily range): BP systolic 108–160; BP diastolic 51–77
[2017-12-12] MEDS: CEFTRIAXONE SOD 1 GM VIAL IV SCH ×2 (00:25→23:40)
[2017-12-12] MEDS: AZITHROMYCIN 500MG/NS 250 ML 250 ML IV SCH (01:33)
[2017-12-12] MEDS: SODIUM BICARBONATE 8.4% 75 ML in SODIUM CHLORIDE 0.45% 1,000 ML IV SCH (06:00)
[2017-12-12 06:11] LABS: BASOPHILS % 0.8 % (0.0-1.0); EOSINOPHILS # (AUTO) 0.2 (0.0-0.4); EOSINOPHILS % 4.5 % (0.0-6.0); HEMATOCRIT 28.1 % (38.2-49.6); HEMOGLOBIN 9.3 g/dL (14.0-18.0); LYMPHOCYTES # (AUTO) 1.5 (1.0-3.2); MEAN CORPUSCULAR HEMOGLOBIN 29.8 pg (28-32); MEAN CORPUSCULAR HGB CONC 33.1 g/dL (31-35); MEAN CORPUSCULAR VOLUME 90.1 fL (81-99); MONOCYTES # (AUTO) 0.9 (0.2-0.8); NEUTROPHILS # (AUTO) 2.3 (2.1-6.9); NEUTROPHILS % 45.7 % (38.7-80.0); PLATELET COUNT 243 x10e3/uL (140-360); RED BLOOD COUNT 3.12 x10e6/uL (4.3-5.7); RED CELL DISTRIBUTION WIDTH 15.2 % (11.7-14.4)
[2017-12-12 06:49] LABS: ALANINE AMINOTRANSFERASE 18 IU/L (0-55); ALBUMIN 2.9 g/dL (3.5-5.0); ALBUMIN/GLOBULIN RATIO 0.9 (0.8-2.0); ALKALINE PHOSPHATASE 49 IU/L (40-150); ANION GAP 12.5 mmol/L (8-16); BLOOD UREA NITROGEN 17 mg/dL (7-26); BUN/CREATININE RATIO 16 (6-25); CALCIUM 8.7 mg/dL (8.4-10.2); CARBON DIOXIDE 26 mmol/L (22-29); CHLORIDE 102 mmol/L (98-107); CREATININE, SERUM 1.04 mg/dL (0.72-1.25); EST GLOMERULAR FILTRATION RATE > 60 ML/MIN (60-); GLUCOSE 81 mg/dL (74-118); MAGNESIUM 1.2 MG/DL (1.3-2.1); POTASSIUM 3.5 mmol/L (3.5-5.1); SODIUM 137 mmol/L (136-145)
[2017-12-12 07:03] LABS: THYROID STIMULATING HORMONE 2.722 uIU/mL (0.350-4.940)
[2017-12-12] MEDS: HYDROXYCHLOROQUINE SULFATE 200 MG TAB PO SCH ×2 (09:00→17:52)
[2017-12-12] MEDS ORDERED: TAMSULOSIN HCL 0.4 MG CAP PO SCH (09:00)
--- NOTE | 2017-12-12 09:16 | Diagnostic Imaging Report ---
PROCEDURE: CHEST SINGLE (PORTABLE) COMPARISON: 12/10/2017. INDICATIONS: POSSIBLE CHF FINDINGS: The lungs remain well inflated. No focal airspace consolidation, sizable pleural effusion, or pneumothorax. Stable enlargement of the cardiac silhouette with prominence of the central pulmonary vasculature. No acute osseous abnormality. CONCLUSION: Cardiomegaly and pulmonary venous congestion, similar in degree to that noted 12/10/2017. Dictated by: Get Mercado M.D. on 12/12/2017 at 9:25 Electronically approved by: Get Mercado M.D. on 12/12/2017 at 9:25
[2017-12-12] MEDS: PROPRANOLOL HCL 10 MG TAB PO SCH ×2 (09:45→17:52)
[2017-12-12] MEDS: PANTOPRAZOLE SOD 40 MG TABEC PO SCH (09:45)
[2017-12-12] MEDS: SULFASALAZINE 500 MG TAB PO SCH ×3 (09:45→20:05)
[2017-12-12] MEDS: CLOPIDOGREL BISULFATE 75 MG TAB PO SCH (09:45)
--- NOTE | 2017-12-12 11:08 | Progress Note ---
DATE: December 12, 2017 CARDIOLOGY PROGRESS NOTE SUBJECTIVE: Patient reports he feels bad. He cannot further characterize this, but indicates he feels weak as well. He denies chest pain or shortness of breath. He apparently told the nurse he was having black stools as well. OBJECTIVE VITALS: Temperature 99.2 degrees, pulse 72, respiratory rate 17, blood pressure 140/67, and oxygen saturation 98% on room air. GENERAL: Awake, alert and in no acute distress. LUNGS: Decreased breath sounds at the bases, otherwise clear to auscultation. No wheezes or crackles. CARDIOVASCULAR: Normal rate and regular rhythm. No murmur. Normal S1 and S2. ABDOMEN: Soft and nontender. EXTREMITIES: One plus pitting edema at the ankles. CARDIAC MEDICATIONS 1. Atorvastatin 20 mg p.o. at bedtime. 2. Plavix 75 mg p.o. daily. 3. Propranolol 10 mg p.o. b.i.d. LABS: WBC 9.1, hemoglobin 9.3, hematocrit 28.1, and platelets 243,000. Sodium 137, potassium 3.5, chloride 102, CO2 26, BUN 17, creatinine 1.04. BNP 380. Chest x-ray with cardiomegaly and pulmonary venous congestion similar in degree to that noted on December 10, 2017. Telemetry is normal sinus rhythm. IMPRESSION 1. Acute kidney injury, improved with fluids. 2. Lactic acidosis, resolved. 3. Pneumonia. 4. Hyponatremia, resolved. 5. Peripheral arterial disease, status post recent atherectomy with angioplasty of the right common and superficial femoral artery, as well as angioplasty and stent placement of the right external iliac artery. 6. Chronic anemia. 7. Moderate coronary artery disease. 8. Hypertension, currently with adequate blood pressure control. RECOMMENDATIONS: Echocardiogram demonstrated normal LV systolic function, but impaired LV relaxation. Given rise in BNP with fluid administration, would recommend stopping fluids at this time. Antibiotics per primary service. Further evaluation of acute kidney injury per nephrology, but this is likely volume depletion. Continue current cardiac medications otherwise. Hold antihypertensive therapy. Monitor blood pressure. We will resume if the patient becomes hypertensive. Thank you for this consult. We will continue to follow. Job#: [id number] [place]
[2017-12-12] MEDS ORDERED: POTASSIUM CHLORIDE 20 MEQ TAB CR PO ONE (15:00)
[2017-12-12] MEDS: ATORVASTATIN 20 MG TAB PO SCH (20:03)
[2017-12-13] VITALS (8 sets, daily range): BP systolic 109–158; BP diastolic 65–76
[2017-12-13] MEDS: AZITHROMYCIN 500MG/NS 250 ML 250 ML IV SCH (02:10)
[2017-12-13] MEDS: ONDANSETRON HCL INJ 2 MG/ML VIAL IV PRN (05:50)
[2017-12-13] MEDS: HYDROCODONE/APAP 5MG-325MG TAB PO PRN ×2 (06:20→14:07)
[2017-12-13] MEDS: HYDROXYCHLOROQUINE SULFATE 200 MG TAB PO SCH ×2 (08:00→17:32)
[2017-12-13] MEDS: PROPRANOLOL HCL 10 MG TAB PO SCH ×2 (09:55→17:31)
[2017-12-13] MEDS: CLOPIDOGREL BISULFATE 75 MG TAB PO SCH (09:55)
[2017-12-13] MEDS: PANTOPRAZOLE SOD 40 MG TABEC PO SCH (09:55)
[2017-12-13] MEDS: SULFASALAZINE 500 MG TAB PO SCH ×2 (09:55→18:24)
--- NOTE | 2017-12-13 12:57 | Progress Note ---
DATE: December 13, 2017 CARDIOLOGY PROGRESS NOTE SUBJECTIVE: No new complaints, sleeping comfortably. Had a rough night per . OBJECTIVE VITALS: Temperature 98.9. Heart rate 74, respiratory rate 20, blood pressure 106/65. O2 sat 94% on room air. GENERAL: Sleeping comfortably. CHEST: Decreased breath sounds at bilateral bases. CARDIOVASCULAR: Regular rate and rhythm. Normal S1 and S2. No S3, no S4. No murmurs or rubs. ABDOMEN: Soft. EXTREMITIES: Trace edema of bilateral lower extremities. CARDIOVASCULAR MEDICATIONS 1. Atorvastatin 20 mg nightly. 2. Propranolol 10 mg b.i.d. 3. Clopidogrel 75 mg daily. 4. Tamsulosin 0.4 mg daily. 5. Hydralazine 10 mg q.4 h. p.r.n. elevated blood pressure. TELEMETRY: Sinus rhythm with PACs. STUDIES FOR TODAY: None are available. ASSESSMENT 1. Acute kidney injury, improved with fluids. 2. Status post lactic acidosis. 3. Pneumonia. 4. Resolved hyponatremia. 5. Peripheral arterial disease status post recent atherectomy with angioplasty of right common femoral and superficial femoral artery as well as angioplasty and stent placement of the right external iliac artery. 6. Chronic anemia. 7. Moderate coronary artery disease. 8. Hypertension. 9. Preserved left ventricular systolic function with impaired left ventricular relaxation consistent with eklun-pz-rbwqviw diastolic heart failure. RECOMMENDATIONS: IV fluids discontinued due to decreased breath sounds and elevated BNP in the setting of IV fluids, which have been held. I have advised the primary service. Continue current cardiovascular medications. Blood pressure currently stable. Add aspirin. Job#: [id number]
[2017-12-13] MEDS: ASPIRIN 81 MG CHEW TAB PO SCH (16:32)
[2017-12-13] MEDS ORDERED: CHOLESTYRAMINE 4 GM PACKET PO PRN (20:00)
[2017-12-13] MEDS ORDERED: SODIUM CHLORIDE 0.9% 250ML 250 ML ONE (20:12)
[2017-12-13] MEDS ORDERED: MAGNESIUM SULFATE 2GM/50ML 50 ML IV ONE (20:30)
[2017-12-13] MEDS: TAMSULOSIN HCL 0.4 MG CAP PO SCH (20:39)
[2017-12-13] MEDS: LACTOBACILLUS ACIDOPHILUS CAPSULE PO SCH (20:39)
[2017-12-13] MEDS: ATORVASTATIN 20 MG TAB PO SCH (20:39)
[2017-12-13] MEDS: CEFTRIAXONE SOD 1 GM VIAL IV SCH (23:32)
[2017-12-14] VITALS (7 sets, daily range): BP systolic 125–185; BP diastolic 56–79
[2017-12-14] MEDS: AZITHROMYCIN 500MG/NS 250 ML 250 ML IV SCH (01:38)
[2017-12-14] MEDS: HYDROCODONE/APAP 5MG-325MG TAB PO PRN ×2 (02:35→12:25)
[2017-12-14 07:35] LABS: BASOPHILS # (AUTO) 0.1 (0.0-0.1); BASOPHILS % 0.9 % (0.0-1.0); EOSINOPHILS # (AUTO) 0.2 (0.0-0.4); EOSINOPHILS % 3.2 % (0.0-6.0); HEMOGLOBIN 8.6 g/dL (14.0-18.0); LYMPHOCYTES # (AUTO) 1.3 (1.0-3.2); LYMPHOCYTES % 22.2 % (18.0-39.1); MEAN CORPUSCULAR HEMOGLOBIN 29.4 pg (28-32); MEAN CORPUSCULAR HGB CONC 33.1 g/dL (31-35); MEAN CORPUSCULAR VOLUME 88.7 fL (81-99); MONOCYTES # (AUTO) 0.9 (0.2-0.8); MONOCYTES % 16.3 % (4.4-11.3); NEUTROPHILS # (AUTO) 3.2 (2.1-6.9); NEUTROPHILS % 56.3 % (38.7-80.0); PLATELET COUNT 242 x10e3/uL (140-360); RED BLOOD COUNT 2.93 x10e6/uL (4.3-5.7); RED CELL DISTRIBUTION WIDTH 15.3 % (11.7-14.4)
[2017-12-14] MEDS: SULFASALAZINE 500 MG TAB PO SCH ×2 (08:12→16:33)
[2017-12-14] MEDS: CLOPIDOGREL BISULFATE 75 MG TAB PO SCH (08:12)
[2017-12-14] MEDS: ASPIRIN 81 MG CHEW TAB PO SCH (08:12)
[2017-12-14] MEDS: HYDROXYCHLOROQUINE SULFATE 200 MG TAB PO SCH ×2 (08:12→16:33)
[2017-12-14] MEDS: LACTOBACILLUS ACIDOPHILUS CAPSULE PO SCH ×3 (08:12→21:15)
[2017-12-14] MEDS: PANTOPRAZOLE SOD 40 MG TABEC PO SCH (08:12)
[2017-12-14 08:18] LABS: ANION GAP 14.5 mmol/L (8-16); BLOOD UREA NITROGEN 7 mg/dL (7-26); BUN/CREATININE RATIO 9 (6-25); CALCIUM 8.6 mg/dL (8.4-10.2); CARBON DIOXIDE 22 mmol/L (22-29); CHLORIDE 96 mmol/L (98-107); CREATININE, SERUM 0.79 mg/dL (0.72-1.25); EST GLOMERULAR FILTRATION RATE > 60 ML/MIN (60-); GLUCOSE 69 mg/dL (74-118); MAGNESIUM 1.4 MG/DL (1.3-2.1); POTASSIUM 3.5 mmol/L (3.5-5.1); SODIUM 129 mmol/L (136-145)
[2017-12-14] MEDS: PROPRANOLOL HCL 10 MG TAB PO SCH ×2 (08:21→16:33)
[2017-12-14] MEDS: TAMSULOSIN HCL 0.4 MG CAP PO SCH ×2 (08:22→21:15)
--- NOTE | 2017-12-14 16:30 | Progress Note ---
DATE: December 14, 2017 CARDIOLOGY PROGRESS NOTE SUBJECTIVE: No new complaints. OBJECTIVE VITAL SIGNS: Temperature 98.4, heart rate 94, respiratory rate 22, blood pressure 135/65, O2 sat 96% room air. GENERAL: No acute distress. NECK: No JVD. CHEST: Clear to auscultation. CARDIOVASCULAR: Regular rate and rhythm. Normal S1 and S2. Telemetry in sinus rhythm. ABDOMEN: Soft. EXTREMITIES: Trace edema. Warm distal extremities. CARDIOVASCULAR MEDICATIONS 1. Aspirin 81 mg daily. 2. Clopidogrel 75 mg daily. 3. Atorvastatin 20 mg nightly. STUDIES: White blood cells 5.6, hemoglobin 8.6, platelets 242. Sodium 129, down from 137. Potassium 3.5, chloride 96, bicarbonate 22, BUN 7, creatinine 0.79, glucose 69. Magnesium 1.4. Calcium 8.6. ASSESSMENT 1. Acute kidney injury, improving with fluids. 2. Electrolyte derangement. 3. Status post lactic acidosis. 4. Pneumonia. 5. Hyponatremia. 6. Peripheral arterial disease status post atherectomy with angioplasty of the right common femoral artery and superficial femoral artery as well as angioplasty and stent placement to the right external iliac artery. 7. Chronic anemia. 8. Moderate coronary artery disease. 9. Hypertension. 10. Preserved left ventricular systolic function with impaired left ventricular relaxation consistent with modwd-cl-elnfvif diastolic heart failure. RECOMMENDATIONS: Overall improving. Continue current cardiovascular medications. Replete electrolytes as needed. Fluid free water restriction advised if okay with the rest of the treating physicians. Job#: [id number]
[2017-12-14] MEDS: ONDANSETRON HCL INJ 2 MG/ML VIAL IV PRN (17:36)
[2017-12-14] MEDS: ATORVASTATIN 20 MG TAB PO SCH (21:15)
[2017-12-15] VITALS (7 sets, daily range): BP systolic 128–173; BP diastolic 71–78
[2017-12-15] MEDS: CEFTRIAXONE SOD 1 GM VIAL IV SCH (01:00)
[2017-12-15] MEDS: AZITHROMYCIN 500MG/NS 250 ML 250 ML IV SCH (02:51)
[2017-12-15 06:12] LABS: BASOPHILS % 0.7 % (0.0-1.0); EOSINOPHILS # (AUTO) 0.2 (0.0-0.4); EOSINOPHILS % 4.5 % (0.0-6.0); HEMATOCRIT 25.2 % (38.2-49.6); HEMOGLOBIN 8.5 g/dL (14.0-18.0); LYMPHOCYTES # (AUTO) 1.1 (1.0-3.2); LYMPHOCYTES % 19.8 % (18.0-39.1); MEAN CORPUSCULAR HEMOGLOBIN 29.4 pg (28-32); MEAN CORPUSCULAR HGB CONC 33.7 g/dL (31-35); MEAN CORPUSCULAR VOLUME 87.2 fL (81-99); MONOCYTES % 18.3 % (4.4-11.3); NEUTROPHILS % 55.6 % (38.7-80.0); PLATELET COUNT 223 x10e3/uL (140-360); RED BLOOD COUNT 2.89 x10e6/uL (4.3-5.7); RED CELL DISTRIBUTION WIDTH 15.2 % (11.7-14.4)
[2017-12-15 06:28] LABS: ANION GAP 13.6 mmol/L (8-16); BLOOD UREA NITROGEN 5 mg/dL (7-26); BUN/CREATININE RATIO 6 (6-25); CALCIUM 8.8 mg/dL (8.4-10.2); CARBON DIOXIDE 24 mmol/L (22-29); CHLORIDE 95 mmol/L (98-107); CREATININE, SERUM 0.81 mg/dL (0.72-1.25); EST GLOMERULAR FILTRATION RATE > 60 ML/MIN (60-); GLUCOSE 86 mg/dL (74-118); MAGNESIUM 1.2 MG/DL (1.3-2.1); POTASSIUM 3.6 mmol/L (3.5-5.1); SODIUM 129 mmol/L (136-145)
[2017-12-15] MEDS: HYDROXYCHLOROQUINE SULFATE 200 MG TAB PO SCH ×2 (09:00→17:21)
[2017-12-15] MEDS: ASPIRIN 81 MG CHEW TAB PO SCH (09:42)
[2017-12-15] MEDS: SULFASALAZINE 500 MG TAB PO SCH ×2 (09:42→17:21)
[2017-12-15] MEDS: LACTOBACILLUS ACIDOPHILUS CAPSULE PO SCH ×3 (09:43→21:25)
[2017-12-15] MEDS: PROPRANOLOL HCL 10 MG TAB PO SCH ×2 (09:43→17:30)
[2017-12-15] MEDS: PANTOPRAZOLE SOD 40 MG TABEC PO SCH (09:43)
[2017-12-15] MEDS: CLOPIDOGREL BISULFATE 75 MG TAB PO SCH (09:43)
--- NOTE | 2017-12-15 11:18 | Progress Note ---
DATE: December 15, 2017 CARDIOLOGY PROGRESS NOTE SUBJECTIVE: Patient denies chest pain or shortness of breath. He complains of left ankle pain. OBJECTIVE VITALS: Temperature 98.7 degrees, pulse 89, respiratory rate 18, blood pressure 171/74, and oxygen saturation 97% 2 L nasal cannula. GENERAL: Awake, alert and in no acute distress. LUNGS: Clear to auscultation bilaterally. No wheezes or crackles. CARDIOVASCULAR: Normal rate and regular rhythm. No murmur. Normal S1 and S2. ABDOMEN: Soft and nontender. EXTREMITIES: No edema. Warm extremities. CARDIAC MEDICATIONS 1. Propranolol 10 mg p.o. b.i.d. 2. Plavix 75 mg p.o. daily. 3. Aspirin 81 mg p.o. daily. 4. Atorvastatin 20 mg p.o. at bedtime. LABS: WBC 5.35, hemoglobin 8.5, hematocrit 25.2, platelets 223. Sodium 129, potassium 3.6, chloride 95, CO2 24, BUN 5, creatinine 0.81. BNP 379. IMPRESSION 1. Acute kidney injury, improved with fluids. 2. Electrolyte derangements. 3. Status post lactic acidosis. 4. Pneumonia. 5. Hyponatremia. 6. Peripheral arterial disease, status post atherectomy and angioplasty of the right common femoral artery and superficial femoral artery as well as angioplasty and stent placement to the right external iliac artery. 7. Chronic anemia. 8. Moderate coronary artery disease. 9. Hypertension. 10. Preserved left ventricular systolic function with impaired left ventricular relaxation consistent with dtfoh-yx-xrtmkna diastolic heart failure. RECOMMENDATIONS: Continue current cardiac medications. Recommend fluid restriction. Thank you for this consult. We will continue to follow. Job#: [id number]
--- NOTE | 2017-12-15 11:34 | Diagnostic Imaging Report ---
PROCEDURE: X-RAY CHEST, TWO VIEWS COMPARISON: None. INDICATIONS: F/U RIGHT LOWER LOBE PNEUMONIA, EVAL. FOR PULMONARY EDEMA FINDINGS: LUNGS: Kcuk-zn-juineizz hyperinflation suggestive of air trapping. Increased reticulation of the parenchyma is stable. Subtle density in the posterior lower lobes on lateral image could represent atelectasis or infiltrate. PLEURA: No effusions or pneumothorax. HEART \T\ MEDIASTINUM: Stable mild cardiomegaly. No hilar lymphadenopathy. BONES \T\ SOFT TISSUES: The bones are diffusely demineralized. There are no focal osseous lesions. Soft tissues are unremarkable. CONCLUSION: 1. Posterior lower lobe opacity suggestive of pneumonia or atelectasis. 2. Stable cardiomegaly without vascular congestion. 3. Stable pulmonary hyperinflation and interstitial prominence suggestive of small airways disease and mild fibrosis. Dictated by: Genaro Bradley M.D. on 12/15/2017 at 11:44 Electronically approved by: Genaro Bradley M.D. on 12/15/2017 at 11:44
[2017-12-15] MEDS ORDERED: MAGNESIUM SULFATE 2GM/50ML 50 ML IV ONE (15:00)
[2017-12-15] MEDS: ALBUTEROL/IPRATROPIUM 3 ML NEB NEB SCH ×2 (20:30→22:00)
[2017-12-15] MEDS: TAMSULOSIN HCL 0.4 MG CAP PO SCH (21:25)
[2017-12-15] MEDS: ATORVASTATIN 20 MG TAB PO SCH (21:25)
[2017-12-16] VITALS: BP 134/63
[2017-12-16] MEDS: CEFTRIAXONE SOD 1 GM VIAL IV SCH (00:17)
[2017-12-16] MEDS: AZITHROMYCIN 500MG/NS 250 ML 250 ML IV SCH (01:39)
[2017-12-16] MEDS: ALBUTEROL/IPRATROPIUM 3 ML NEB NEB SCH ×6 (02:00→22:00)
[2017-12-16 04:00] VITALS: BP 147/67
[2017-12-16 06:03] LABS: BASOPHILS % 0.9 % (0.0-1.0); EOSINOPHILS # (AUTO) 0.3 (0.0-0.4); EOSINOPHILS % 5.9 % (0.0-6.0); HEMATOCRIT 25.4 % (38.2-49.6); HEMOGLOBIN 8.5 g/dL (14.0-18.0); LYMPHOCYTES # (AUTO) 1.1 (1.0-3.2); LYMPHOCYTES % 25.2 % (18.0-39.1); MEAN CORPUSCULAR HEMOGLOBIN 29.3 pg (28-32); MEAN CORPUSCULAR HGB CONC 33.5 g/dL (31-35); MEAN CORPUSCULAR VOLUME 87.6 fL (81-99); MONOCYTES # (AUTO) 0.7 (0.2-0.8); MONOCYTES % 16.6 % (4.4-11.3); NEUTROPHILS # (AUTO) 2.2 (2.1-6.9); NEUTROPHILS % 50.3 % (38.7-80.0); PLATELET COUNT 215 x10e3/uL (140-360); RED CELL DISTRIBUTION WIDTH 15.2 % (11.7-14.4)
[2017-12-16 06:23] LABS: ANION GAP 13.4 mmol/L (8-16); BLOOD UREA NITROGEN 5 mg/dL (7-26); BUN/CREATININE RATIO 6 (6-25); CALCIUM 8.6 mg/dL (8.4-10.2); CARBON DIOXIDE 23 mmol/L (22-29); CHLORIDE 97 mmol/L (98-107); CREATININE, SERUM 0.78 mg/dL (0.72-1.25); EST GLOMERULAR FILTRATION RATE > 60 ML/MIN (60-); GLUCOSE 88 mg/dL (74-118); MAGNESIUM 1.4 MG/DL (1.3-2.1); PHOSPHORUS 3.5 MG/DL (2.3-4.7); POTASSIUM 3.4 mmol/L (3.5-5.1); SODIUM 130 mmol/L (136-145)
[2017-12-16] MEDS: PANTOPRAZOLE SOD 40 MG TABEC PO SCH (08:08)
[2017-12-16] MEDS: PROPRANOLOL HCL 10 MG TAB PO SCH ×2 (08:08→16:40)
[2017-12-16] MEDS: CLOPIDOGREL BISULFATE 75 MG TAB PO SCH (08:08)
[2017-12-16] MEDS: HYDROXYCHLOROQUINE SULFATE 200 MG TAB PO SCH ×2 (08:08→16:40)
[2017-12-16] MEDS: LACTOBACILLUS ACIDOPHILUS CAPSULE PO SCH ×3 (08:08→20:46)
[2017-12-16] MEDS: SULFASALAZINE 500 MG TAB PO SCH ×2 (08:08→17:08)
[2017-12-16] MEDS: ASPIRIN 81 MG CHEW TAB PO SCH (08:08)
[2017-12-16] MEDS: GUAIFENESIN 600MG/DEXTROMETHORPHAN 30MG TABSR PO SCH ×2 (08:08→16:40)
[2017-12-16 08:09] VITALS: BP 161/68
[2017-12-16 13:02] VITALS: BP 150/67
[2017-12-16] MEDS ORDERED: FUROSEMIDE INJ 10 MG/ML 4 ML VIAL IV SCH (14:00)
--- NOTE | 2017-12-16 14:26 | Progress Note ---
DATE: December 16, 2017 CARDIOLOGY PROGRESS NOTE SUBJECTIVE: Patient denies chest pain or shortness of breath. OBJECTIVE VITAL SIGNS: Temperature 97.9 degrees, pulse 81, respiratory rate 18, blood pressure 161/68, oxygen saturation 99% on 2 liters nasal cannula. GENERAL: Awake, alert, in no acute distress. LUNGS: Crackles in the right base. Otherwise clear to auscultation bilaterally. CARDIOVASCULAR: Normal rate, regular rhythm. No murmur. Normal S1 and S2. ABDOMEN: Soft, nontender. EXTREMITIES: Trace edema. Warm extremities. CARDIAC MEDICATIONS 1. Aspirin 81 mg p.o. daily. 2. Propranolol 10 mg p.o. b.i.d. 3. Plavix 75 mg p.o. daily. 4. Atorvastatin 20 mg p.o. nightly. LABS: WBC 4.41, hemoglobin 8.5, hematocrit 25.4, platelets 215. Sodium 130, potassium 3.4, chloride 97, CO2 23, BUN 5, creatinine 0.78. IMPRESSION 1. Acute kidney injury, improved after fluid administration. 2. Electrolyte derangements. 3. Hyponatremia. 4. Pneumonia. 5. Status post lactic acidosis. 6. Peripheral arterial disease status post atherectomy and angioplasty of the right common femoral artery and superficial femoral artery, as well as angioplasty and stent placement to the right external iliac artery. 7. Chronic anemia. 8. Moderate coronary artery disease. 9. Hypertension. 10. Preserved left ventricular systolic function with impaired left ventricular relaxation consistent with dhyhl-dq-[id number] diastolic heart failure. RECOMMENDATIONS: Continue current cardiac medications. Consider a trial of diuretics x1. Thank you for this consult. We will continue to follow. Job#: [id number] EV
[2017-12-16 15:57] VITALS: BP 162/74
[2017-12-16 20:00] VITALS: BP_SYST 150; BP_SYST 166; BP_DIAS 71; BP_DIAS 72
[2017-12-16] MEDS: ATORVASTATIN 20 MG TAB PO SCH (20:46)
[2017-12-16] MEDS: TAMSULOSIN HCL 0.4 MG CAP PO SCH (20:46)
[2017-12-17] VITALS (7 sets, daily range): BP systolic 141–156; BP diastolic 65–76
[2017-12-17] MEDS: ACETAMINOPHEN 325 MG TAB PO PRN ×2 (00:14→20:37)
[2017-12-17] MEDS: CEFTRIAXONE SOD 1 GM VIAL IV SCH ×2 (00:14→23:12)
[2017-12-17] MEDS: AZITHROMYCIN 500MG/NS 250 ML 250 ML IV SCH (01:54)
[2017-12-17] MEDS: ALBUTEROL/IPRATROPIUM 3 ML NEB NEB SCH ×5 (02:00→20:45)
[2017-12-17 06:33] LABS: EOSINOPHILS # (AUTO) 0.3 (0.0-0.4); EOSINOPHILS % 6.9 % (0.0-6.0); HEMATOCRIT 24.3 % (38.2-49.6); HEMOGLOBIN 8.3 g/dL (14.0-18.0); LYMPHOCYTES # (AUTO) 1.1 (1.0-3.2); LYMPHOCYTES % 27.6 % (18.0-39.1); MEAN CORPUSCULAR HEMOGLOBIN 29.9 pg (28-32); MEAN CORPUSCULAR HGB CONC 34.2 g/dL (31-35); MEAN CORPUSCULAR VOLUME 87.4 fL (81-99); MONOCYTES # (AUTO) 0.7 (0.2-0.8); NEUTROPHILS # (AUTO) 1.9 (2.1-6.9); NEUTROPHILS % 47.3 % (38.7-80.0); PLATELET COUNT 238 x10e3/uL (140-360); RED BLOOD COUNT 2.78 x10e6/uL (4.3-5.7); RED CELL DISTRIBUTION WIDTH 14.9 % (11.7-14.4)
[2017-12-17 06:52] LABS: % IRON SATURATION 9 % (15-50); BLOOD UREA NITROGEN 6 mg/dL (7-26); BUN/CREATININE RATIO 8 (6-25); CALCIUM 8.5 mg/dL (8.4-10.2); CARBON DIOXIDE 23 mmol/L (22-29); CHLORIDE 94 mmol/L (98-107); CREATININE, SERUM 0.78 mg/dL (0.72-1.25); EST GLOMERULAR FILTRATION RATE > 60 ML/MIN (60-); GLUCOSE 86 mg/dL (74-118); IRON 16 ug/dL (65-175); MAGNESIUM 1.2 MG/DL (1.3-2.1); SODIUM 129 mmol/L (136-145); TOTAL IRON BINDING CAPACITY 174 ug/dL (261-478); TRANSFERRIN 124 mg/dL (174-364)
[2017-12-17 07:11] LABS: FERRITIN 593.31 ng/mL (21.81-274.66)
[2017-12-17 07:52] LABS: FOLATE 17.7 ng/mL (7.0-15.4)
[2017-12-17] MEDS ORDERED: MAGNESIUM SULF 1GRAM/DEXTROSE 100 ML IV ONE (08:00)
[2017-12-17] MEDS ORDERED: SODIUM CHLORIDE 1 GM TAB PO ONE ×2 (08:15→12:40)
[2017-12-17] MEDS ORDERED: POTASSIUM CHLORIDE 20 MEQ TAB CR PO ONE (08:30)
[2017-12-17] MEDS: ASPIRIN 81 MG CHEW TAB PO SCH (09:00)
[2017-12-17] MEDS ORDERED: SODIUM CHLORIDE 0.9% 250ML 250 ML ONE (09:45)
[2017-12-17] MEDS: HYDROXYCHLOROQUINE SULFATE 200 MG TAB PO SCH ×2 (09:53→17:00)
[2017-12-17] MEDS: PROPRANOLOL HCL 10 MG TAB PO SCH ×2 (09:53→17:00)
[2017-12-17] MEDS: SULFASALAZINE 500 MG TAB PO SCH ×2 (09:53→18:00)
[2017-12-17] MEDS: ASCORBIC ACID 500 MG TAB PO SCH ×2 (09:53→17:00)
[2017-12-17] MEDS: LACTOBACILLUS ACIDOPHILUS CAPSULE PO SCH ×4 (09:53→21:00)
[2017-12-17] MEDS: CLOPIDOGREL BISULFATE 75 MG TAB PO SCH (09:53)
[2017-12-17] MEDS: PANTOPRAZOLE SOD 40 MG TABEC PO SCH (09:53)
[2017-12-17] MEDS: MAGNESIUM OXIDE 400 MG TAB PO SCH ×2 (09:53→17:00)
[2017-12-17] MEDS: GUAIFENESIN 600MG/DEXTROMETHORPHAN 30MG TABSR PO SCH ×2 (09:53→17:00)
[2017-12-17] MEDS: MULTIVITAMINS/MINERALS TAB PO SCH (09:53)
--- NOTE | 2017-12-17 12:43 | Progress Note ---
DATE: December 17, 2017 CARDIOLOGY PROGRESS NOTE SUBJECTIVE: Patient denies chest pain or shortness of breath. He indicates he is going to get a colonoscopy because of anemia. OBJECTIVE VITAL SIGNS: Temperature 95.9 degrees, pulse 72, respiratory rate 18, blood pressure 154/70, oxygen saturation 98%. GENERAL: Well-developed, well-nourished man in no acute distress. LUNGS: Clear to auscultation bilaterally. No wheezes or crackles. CARDIOVASCULAR: Normal rate, regular rhythm. No murmur. Normal S1 and S2. ABDOMEN: Soft, nontender. EXTREMITIES: Trace edema. CARDIAC MEDICATIONS 1. Propranolol 10 mg p.o. b.i.d. 2. Plavix 75 mg p.o. daily. 3. Atorvastatin 20 mg p.o. nightly. 4. Aspirin 81 mg p.o. daily. LABS: WBC 4.06, hemoglobin 8.3, hematocrit 24.3, platelets 238. Sodium 129, potassium 3, chloride 94, CO2 23, BUN 6, creatinine 0.78. Stool for occult blood positive. IMPRESSION 1. Acute kidney injury, improved after fluid administration. 2. Electrolyte derangements. 3. Hyponatremia. 4. Pneumonia. 5. Status post lactic acidosis. 6. Peripheral arterial disease status post atherectomy and angioplasty of the right common femoral and superficial femoral artery as well as angioplasty and stent placement to the right external iliac artery. 7. Chronic anemia, likely secondary to gastrointestinal blood loss given positive stool for occult blood. 8. Moderate coronary artery disease. 9. Hypertension. 10. Preserved left ventricular systolic function with impaired left ventricular relaxation consistent with vtjmb-rk-slsmups diastolic heart failure. RECOMMENDATIONS: Continue current cardiac medications. Place the patient on scheduled Lasix. Evaluation of anemia per GI. Thank you for this consult. We will continue to follow. Job#: [id number]
[2017-12-17] MEDS: FUROSEMIDE INJ 10 MG/ML 4 ML VIAL IV SCH (13:09)
[2017-12-17] MEDS ORDERED: POTASSIUM CHLORIDE 20MEQ/100ML 200 ML IV ONE (15:15)
[2017-12-17] MEDS: ONDANSETRON HCL INJ 2 MG/ML VIAL IV PRN ×2 (16:50→20:37)
[2017-12-17] MEDS: FERROUS SULFATE 325 MG TAB PO SCH (17:00)
[2017-12-17] MEDS: ATORVASTATIN 20 MG TAB PO SCH (20:29)
[2017-12-17] MEDS: SODIUM CHLORIDE 1 GM TAB PO SCH ×2 (20:29→21:00)
[2017-12-17] MEDS: TAMSULOSIN HCL 0.4 MG CAP PO SCH (20:29)
[2017-12-17] MEDS: HYDROCODONE/APAP 5MG-325MG TAB PO PRN (21:21)
[2017-12-18 00:05] VITALS: BP 102/54
[2017-12-18] MEDS: HYDROCODONE/APAP 5MG-325MG TAB PO PRN (04:20)
[2017-12-18 04:22] VITALS: BP 133/60
[2017-12-18] MEDS: ALBUTEROL/IPRATROPIUM 3 ML NEB NEB SCH ×3 (06:00→14:00)
[2017-12-18 06:19] LABS: BASOPHILS % 0.8 % (0.0-1.0); EOSINOPHILS # (AUTO) 0.3 (0.0-0.4); EOSINOPHILS % 6.6 % (0.0-6.0); HEMATOCRIT 24.6 % (38.2-49.6); HEMOGLOBIN 8.3 g/dL (14.0-18.0); LYMPHOCYTES % 21.1 % (18.0-39.1); MEAN CORPUSCULAR HEMOGLOBIN 29.1 pg (28-32); MEAN CORPUSCULAR HGB CONC 33.7 g/dL (31-35); MEAN CORPUSCULAR VOLUME 86.3 fL (81-99); MONOCYTES # (AUTO) 0.8 (0.2-0.8); MONOCYTES % 16.8 % (4.4-11.3); NEUTROPHILS # (AUTO) 2.6 (2.1-6.9); NEUTROPHILS % 53.7 % (38.7-80.0); PLATELET COUNT 239 x10e3/uL (140-360); RED BLOOD COUNT 2.85 x10e6/uL (4.3-5.7); RED CELL DISTRIBUTION WIDTH 15.4 % (11.7-14.4)
[2017-12-18 06:43] LABS: ALANINE AMINOTRANSFERASE 21 IU/L (0-55); ALBUMIN 2.4 g/dL (3.5-5.0); ALBUMIN/GLOBULIN RATIO 0.7 (0.8-2.0); ALKALINE PHOSPHATASE 55 IU/L (40-150); ANION GAP 15.4 mmol/L (8-16); BLOOD UREA NITROGEN 6 mg/dL (7-26); BUN/CREATININE RATIO 8 (6-25); CALCIUM 8.9 mg/dL (8.4-10.2); CARBON DIOXIDE 23 mmol/L (22-29); CHLORIDE 93 mmol/L (98-107); CREATININE, SERUM 0.77 mg/dL (0.72-1.25); EST GLOMERULAR FILTRATION RATE > 60 ML/MIN (60-); GLUCOSE 87 mg/dL (74-118); MAGNESIUM 1.5 MG/DL (1.3-2.1); POTASSIUM 3.4 mmol/L (3.5-5.1); SODIUM 128 mmol/L (136-145)
[2017-12-18 07:05] VITALS: BP 134/64
[2017-12-18 07:49] VITALS: BP 134/64
[2017-12-18] MEDS: FERROUS SULFATE 325 MG TAB PO SCH (08:00)
[2017-12-18] MEDS: HYDROXYCHLOROQUINE SULFATE 200 MG TAB PO SCH (08:00)
[2017-12-18] MEDS: FUROSEMIDE INJ 10 MG/ML 4 ML VIAL IV SCH (08:20)
[2017-12-18] MEDS: CLOPIDOGREL BISULFATE 75 MG TAB PO SCH (09:00)
[2017-12-18] MEDS: ASPIRIN 81 MG CHEW TAB PO SCH (09:00)
[2017-12-18] MEDS: MAGNESIUM OXIDE 400 MG TAB PO SCH (09:00)
[2017-12-18] MEDS: SULFASALAZINE 500 MG TAB PO SCH (09:00)
[2017-12-18] MEDS: SODIUM CHLORIDE 1 GM TAB PO SCH ×2 (09:00→11:37)
[2017-12-18] MEDS ORDERED: POTASSIUM CHLORIDE 20 MEQ TAB CR PO SCH (09:00)
[2017-12-18] MEDS: LACTOBACILLUS ACIDOPHILUS CAPSULE PO SCH (09:00)
[2017-12-18] MEDS ORDERED: SODIUM CHLORIDE 0.9% 500ML 500 ML IV ONE (09:00)
[2017-12-18] MEDS: MULTIVITAMINS/MINERALS TAB PO SCH (09:00)
[2017-12-18] MEDS: PROPRANOLOL HCL 10 MG TAB PO SCH (09:00)
[2017-12-18] MEDS: PANTOPRAZOLE SOD 40 MG TABEC PO SCH (09:00)
[2017-12-18] MEDS: GUAIFENESIN 600MG/DEXTROMETHORPHAN 30MG TABSR PO SCH (09:00)
[2017-12-18] MEDS: ASCORBIC ACID 500 MG TAB PO SCH (09:00)
[2017-12-18] MEDS ORDERED: MORPHINE SULFATE 2 MG/ML SYR IV PRN (09:30)
[2017-12-18] MEDS ORDERED: SODIUM CHLORIDE 1 GM TAB PO ONE ×2 (09:30→17:00)
[2017-12-18] MEDS ORDERED: FERROUS SULFAT325 MG PO (11:34)
[2017-12-18] MEDS ORDERED: KLOR-CON M2020 MEQ PO (11:34)
[2017-12-18] MEDS ORDERED: FUROSEMIDE40 MG PO (11:34)
[2017-12-18] MEDS ORDERED: SODIUM CHLORIDE1 GM PO (11:34)
[2017-12-18] MEDS ORDERED: ASCORBIC ACID500 MG PO (11:34)
[2017-12-18] MEDS ORDERED: Multivitamins/Minerals PO (11:34)
[2017-12-18] MEDS ORDERED: MAGNESIUM OXID400 MG PO (11:34)
[2017-12-18] MEDS: ONDANSETRON HCL INJ 2 MG/ML VIAL IV PRN (11:37)
[2017-12-18 11:48] VITALS: BP 138/74
[2017-12-18] MEDS ORDERED: FUROSEMIDE INJ 10 MG/ML 4 ML VIAL IV ONE (12:10)
--- NOTE | 2017-12-18 12:14 | Progress Note ---
DATE: December 18, 2017 CARDIOLOGY PROGRESS NOTE SUBJECTIVE: Patient denies chest pain or shortness of breath. His EGD was cancelled due to hyponatremia. OBJECTIVE VITAL SIGNS: Temperature 98.4 degrees, pulse 116, respiratory rate 20, blood pressure 134/64, and oxygen saturation 96%. GENERAL: Awake and alert, in no acute distress. LUNGS: Clear to auscultation bilaterally. No wheezes or crackles. CARDIOVASCULAR: Normal rate. Regular rhythm. No murmur. Normal S1 and S2. ABDOMEN: Soft and nontender. EXTREMITIES: Trace edema. CARDIAC MEDICATIONS 1. Furosemide 40 mg IV daily. 2. Atorvastatin 20 mg p.o. at bedtime. 3. Aspirin 81 mg p.o. daily. 4. Propranolol 10 mg p.o. b.i.d. 5. Plavix 75 mg p.o. daily. 6. Diltiazem 120 mg p.o. daily. LABS: Sodium 128, potassium 3.4, chloride 93, CO2 of 23, BUN 6, and creatinine 0.77. WBC 4.88, hemoglobin 8.3, hematocrit 24.6, and platelets 239. IMPRESSION 1. Acute kidney injury, improved after fluid administration. 2. Electrolyte derangements. 3. Hyponatremia. 4. Pneumonia. 5. Status post lactic acidosis. 6. Peripheral arterial disease, status post atherectomy and angioplasty of the right common femoral and superficial femoral artery as well as angioplasty and stent placement to the right external iliac artery. 7. Chronic anemia, likely secondary to gastrointestinal blood loss given positive stool for occult blood. 8. Moderate coronary artery disease. 9. Hypertension. 10. Preserved left ventricular systolic function with impaired left ventricular relaxation consistent with iwsrp-sa-mchlzwx diastolic heart failure. RECOMMENDATIONS: Continue current cardiac medications. If patient is discharged, please discharge the patient on Lasix 40 p.o. b.i.d. Further evaluation of anemia per GI. Stop triamterene and hydrochlorothiazide upon discharge. Please send the patient in follow up with us in the office in 2 weeks. Thank you for this consult. We will continue to follow. Job#: [id number] VAS
[2017-12-18 15:11] LABS: ANION GAP 18.6 mmol/L (8-16); BLOOD UREA NITROGEN 6 mg/dL (7-26); BUN/CREATININE RATIO 7 (6-25); CALCIUM 9.1 mg/dL (8.4-10.2); CARBON DIOXIDE 24 mmol/L (22-29); CHLORIDE 92 mmol/L (98-107); CREATININE, SERUM 0.84 mg/dL (0.72-1.25); EST GLOMERULAR FILTRATION RATE > 60 ML/MIN (60-); GLUCOSE 84 mg/dL (74-118); POTASSIUM 3.6 mmol/L (3.5-5.1); SODIUM 131 mmol/L (136-145)
[2017-12-19] MEDS ORDERED: DILTIAZEM HCL 180 MG CAP CD PO SCH (09:00)
[2017-12-19] MEDS ORDERED: DILTIAZEM HCL 120 MG CAP CD PO SCH (09:00)
--- NOTE | 2017-12-19 10:07 | Discharge Summary ---
ADMISSION DIAGNOSES 1. Dehydration. 2. Acute kidney injury. 3. Recent percutaneous angioplasty in the right femoral artery. 4. Hypotension. 5. Rheumatoid arthritis. 6. Right lower lobe pneumonia. DISCHARGE DIAGNOSES 1. Dehydration. 2. Acute kidney injury. 3. Recent percutaneous angioplasty in the right femoral artery. 4. Hypotension. 5. Rheumatoid arthritis. 6. Right lower lobe pneumonia. 7. Gastrointestinal bleed. HISTORY: Patient has a history of hypertension, PAD with a recent percutaneous intervention with drug-eluting stent in the right common and superficial femoral arteries about a week ago. He also has RA and GERD and hypertension. HOSPITAL COURSE: A 72-year-old male after having the stent placed started feeling weak with his blood pressure down a couple of days later and was instructed to come to the ER for evaluation. On admission, patient was started on IV fluid with bicarbonate to help the dehydration. Nephrology was consulted. Patient was also found to have hyponatremia pretty much throughout hospitalization and was given salt tabs. Per Dr. Arshad and Dr. Moreno, patient is to stop the lisinopril at discharge and add Lasix b.i.d. 40 mg and follow up in 1 week. Blood pressure remained stable throughout hospitalization even without the lisinopril. Diltiazem was resumed on the last day prior to discharge because patient's blood pressure was under control without it. RA was uncontrolled because the patient was having nausea and unable to eat. Therefore, he was not taking his medications. Patient was also started on Zithromax and Rocephin for the pneumonia. Chest x-ray on admission showed no acute thoracic abnormality. CT of the abdomen showed right lower lobe air space disease suspicious for pneumonia versus low-grade neoplasm. The gallbladder showed no stones or sludge, no focal masses or ductal dilatation in the pancreas that would explain the patient's nausea. Ultrasound of the kidneys showed no hydronephrosis. Urine culture was negative. Patient was discharged home with iron, vitamin C, multivitamin, salt tabs per renal, Lasix b.i.d. and potassium per cardiology along with magnesium for hypomagnesemia. Patient had a fecal occult blood test that was positive, but due to the hyponatremia, GI did not want to do an EGD inpatient; so, patient will follow up with GI as outpatient for EGD. Hemoglobin remains stable in the mid to low 8 range. Patient will also follow up with cardiology and PCP in 1 week. Dictated by Cande Sebastian, SLURRY MAN RENATA REMY MD Job#: [id number] CF
== END 2017-12-18 16:34 | disposition home or self-care (01) | DRG 682 ==
LOC: ER 21:58 → ERHOLD 12-11 00:54 → IMCU 12-11 17:50 → MED/SURG2 12-14 20:30
PROVIDERS: ADMIT Internal Medicine; ATTEND Internal Medicine
DX: N17.0 Acute kidney failure with tubular necrosis (principal); J18.9 Pneumonia, unspecified organism; I50.33 Acute on chronic diastolic (congestive) heart failure; I13.0 Hypertensive heart and chronic kidney disease with heart failure and stage 1 through stage 4 chronic kidney disease, or unspecified chronic kidney disease; I11.0 Hypertensive heart disease with heart failure; D50.0 Iron deficiency anemia secondary to blood loss (chronic); I50.9 Heart failure, unspecified; E87.1 Hypo-osmolality and hyponatremia; N17.9 Acute kidney failure, unspecified; M06.9 Rheumatoid arthritis, unspecified; I73.9 Peripheral vascular disease, unspecified; Z95.820 Peripheral vascular angioplasty status with implants and grafts; K21.9 Gastro-esophageal reflux disease without esophagitis; I25.10 Atherosclerotic heart disease of native coronary artery without angina pectoris; Z95.5 Presence of coronary angioplasty implant and graft; I51.7 Cardiomegaly; Z87.891 Personal history of nicotine dependence; E83.42 Hypomagnesemia; E87.6 Hypokalemia; N14.1 Nephropathy induced by other drugs, medicaments and biological substances; T50.8X5A Adverse effect of diagnostic agents, initial encounter; N18.9 Chronic kidney disease, unspecified; N40.0 Benign prostatic hyperplasia without lower urinary tract symptoms; R19.7 Diarrhea, unspecified
CPT/HCPCS: 36415; 71045; 71046; 74176; 76770; 80048; 80053; 81001; 82270; 82550; 82553; 82607; 82728; 82746; 82948; 83540; 83605; 83735; 83880; 84100; 84443; 84466; 84484; 85025; 85610; 85730; 86850; 86900; 87086; 93005; 93306; 94640; 96361; 96366; 99285; J0456; J0696; J1940; J2270; J2405; J3475; J7030; J7050

== ENCOUNTER → 2018-01-21 | Day surgery (SDC) | payer OTHER, MEDICARE ==
[~2018-01-21] MED LIST changes: +ASCORBIC ACID500 MG PO; +FERROUS SULFAT325 MG PO; +FUROSEMIDE40 MG PO; +KLOR-CON M2020 MEQ PO; +MAGNESIUM OXID400 MG PO; +Multivitamins/Minerals PO; +PROPOFOL IV EMULSION 10 MG/ML 50 ML VIAL ONE; +SODIUM CHLORIDE1 GM PO
--- OUTSIDE RECORDS SUMMARY | 2018-01-21 07:10 | XMS REPORT | Continuity of Care Document ---
Author Author [facility] Organization [facility] Address [address] [place] [address] Phone Unavailable Care Team Providers Care Tactical/Mobile Watch Officer Name Role Phone MARV CEDILLO DO PCP Insurance Providers Guarantor Bin Boo Address [address] [place] [address] Email [email or web address] Payer Aetna Pos Policy Number [id number] Subscriber's Name Yanet Boo Relationship 01 Group Number [id number] Group Name [id number] Effective Date 13 Payer Medicare A & B Policy Number [id number] Subscriber's Name Bin Boo Jr Relationship 18 Self / Same As Patient Group Name RETIRED Effective Date 10 Advance Directives Directive Response Recorded Date/Time Does the patient have an advance directive? No 12/11/17 9:00pm If yes, is advance directive on file with [facility]? No 12/11/17 9:00pm If not on file with [facility] will patient provide a copy? No 12/11/17 9:00pm Do you have a Directive to Physician? No 12/10/17 10:21pm Do you have a Medical Power of Garment Steamer? No 12/10/17 10:21pm Do you have an out of hospital Do Not Resuscitate Order? No 12/10/17 10:21pm Do you have any special needs we should be aware of? No 12/10/17 10:21pm Do you have a support person here with you today? Yes 12/10/17 10:21pm Did patient receive Notice of Privacy Practices? Yes 12/10/17 10:21pm Did patient receive patient rights and responsibilities? Yes 12/10/17 10:21pm Problems Medical Problem Onset Date Status Acute renal failure Unknown Pneumonia Unknown Volume depletion Unknown Medications Current Home Medications Medication Dose Units Route Directions Days Qty Instructions Start Date Ascorbic Acid 500 Mg Tablet 500 Mg Oral Twice A Day 30 Days Aspirin (Aspir 81) 81 Mg Tablet.dr Mg Oral Daily 30 Atorvastatin Calcium (Lipitor) 20 Mg Tablet 20 Mg Daily 30 Tab Cinnamon Bark (Cinnamon) 500 Mg Capsule 1,000 Mg Oral Daily Clopidogrel Bisulfate (Plavix) 75 Mg Tablet 75 Mg Oral Daily 30 Tab Diltiazem Hcl (Diltiazem 24HR Er) 180 Mg Capcr 300 Mg Oral Daily Ferrous Sulfate 325 Mg Tablet 325 Mg Oral Twice Daily With Meals 30 Days 12/18/17 Furosemide 40 Mg Tablet 40 Mg Oral Twice A Day 7 Days 12/18/17 Hydrocodone Bit/Acetaminophen ([place] 5-325 Tablet) 1 Each Tablet 5 Tab Oral Three Times A Day Hydroxychloroquine Sulfate 200 Mg Tablet 200 Mg Oral Twice A Day Krill Oil 500 Mg Capsule 500 Mg Oral Daily Magnesium Oxide 400 Mg Tablet 400 Mg Oral Twice A Day 30 Days 12/18 Methscopolamine [place] 5 Mg Tablet 5 Mg Oral Twice A Day Multivitamins/Minerals 1 Tab 1 Oral Daily 30 Days 12/18/17 Omeprazole 40 Mg Capsule.dr 40 Mg Oral Daily Potassium Chloride (Klor-Con M20) 20 Meq Tabcr 20 Meq Oral Daily 30 Days 12/18/17 Prednisone 5 Mg Tablet 5 Mg Oral Daily Propranolol Hcl 10 Mg Tablet 10 Mg Oral Twice A Day Sodium Chloride 1 Gm Tab 2 Gm Oral Three Times A Day 7 Days Sulfasalazine 500 Mg Tab 500 Mg Oral Twice A Day 30 Tab Tamsulosin Hcl (Flomax*) 0.4 Mg Cap 0.4 Mg Oral Daily 30 Cap Turmeric 1 Gm Powder Use As Directed PRESCRIBED Past Home Medications Medication Directions Ordered Status Calcium Carbonate/Vitamin D3 (Os-Jaxon 500+D Tablet) 1 Each Tablet, 500 Mg Daily Discontinued Cholecalciferol (Vitamin D) 400 Unit Tab, 500 Mg Oral Daily Discontinued Ferrous Sulfate 325 Mg Tablet.dr, 325 Mg Oral Daily Discontinued Hematinic Plus , 1 Cap Oral Daily Discontinued Hydrocodone Bit/Acetaminophen (Hydrocodon-Acetaminophen 5-300) 1 Each Tablet, Discontinued Iron/Fa/Vitamin B Comp W-C/Min (Sypodnwoq-Suhqvfa-Viwldkd Tab) 1 Each Tablet, 1 Tab Oral Daily Discontinued Lisinopril (Prinavil / Zestril) 20 Mg Tablet, 30 Mg Oral Daily Discontinued Mu-Vits-Min Th/Lycopene/Lutein (Centrum Silver Tablet) 1 Each Tablet, 1 Cap Oral Daily Discontinued Potassium Chloride 20 Meq Tab.er.prt, 550 Mg Oral Daily Discontinued Potassium/Magnesium , 550 Mg Discontinued Triamterene/Hctz (Triamterene-Hctz 37.5-25 Mg Tb) 1 Ea Tab, 37.5 Mg Oral Daily Discontinued Turmeric Root Extract (Turmeric) 500 Mg Capsule, Discontinued Social History Social History Problem Response Recorded Date/Time Onset Date Status Hx Psychiatric Problems No 12/11/2017 9:00pm Not Applicable Not Applicable Hx Eating Disorder No 12/11/2017 9:00pm Not Applicable Not Applicable Hx Substance Use Disorder No 12/11/2017 9:00pm Not Applicable Not Applicable Hx Depression No 12/11/2017 9:00pm Not Applicable Not Applicable Hx Alcohol Use Y - "BEER SELDOMLY" 12/11/2017 9:00pm Not Applicable Not Applicable Hx Substance Use Treatment No 12/11/2017 9:00pm Not Applicable Not Applicable Hx Physical Abuse No 12/11/2017 9:00pm Not Applicable Not Applicable Smoking Status Start Date Stop Date Former smoker Hospital Discharge Instructions No hospital discharge instruction information available. Plan of Care Discharge Date 12/18/17 4:34pm Disposition HOME, SELF-CARE Instructions/Education Provided Dehydration - Adult Kidney Failure Prescriptions See Medication Section Referrals STEVENSON BRANDON MD (Cardiology) Order Date: 1 Week Entered Date: 12/18/2017 11:35am Address: [facility] [address] [place] [address] YANI GIVENS MD (Gastroenterology) Order Date: 1-2 Weeks Entered Date: 12/18/2017 11:44am Address: [address] [place] [address] Functional Status Query Response Date Recorded FUNCTIONAL STATUS ` December 13, 2017 1:45pm Assistive Devices None December 11, 2017 9:00pm Ambulation Ability Independent December 11, 2017 9:00pm Toileting Ability Minimum Assistance December 18, 2017 2:08pm Allergies, Adverse Reactions, Alerts Allergen Type Severity Reaction Status Last Updated Penicillin Allergy Severe rash Active 09/17/16 Immunizations No immunization information available. Vital Signs Acute Vital Signs Vital Response Date/Time Temperature (Fahrenheit) 98.9 degrees F (97.6 - 99.5) 12/18/2017 11:48am Pulse Pulse Rate (adult) 108 bpm (60 - 90) 12/18/2017 3:03pm Respiratory Rate 20 bpm (12 - 24) 12/18/2017 3:03pm Blood Pressure 138/74 mm Hg 12/18/2017 11:48am Height 6 ft 0 in 12/10/2017 10:04pm Weight 202.44 lb 12/14/2017 8:58pm Body Mass Index 27.5 kg/m^2 12/14/2017 8:58pm Results Laboratory Results Test Name Result Units Flags Reference Collection Date/Time Result Date/ Time Comments Differential Total Cells Counted 100 12/04/2017 1:30pm [...] Comment NORMAL 12/04/2017 1:30pm 12/04/2017 8: 35pm Triglycerides Level 123 MG/DL 0-149 12/04/2017 1:30pm [...] 4.0 3.9-4.7 12/04/2017 1:30pm 12/04/2017 2: 04pm White Blood Count 4.88 x10e3/uL 4.8-10.8 12/18/2017 5:50am 12/18/2017 6 :26am Red Blood Count 2.85 x10e6/uL L 4.3-5.7 12/18/2017 5:50am 12/18/2017 6: 26am Hemoglobin 8.3 g/dL L 14.0-18.0 12/18/2017 5:50am 12/18/2017 6:26am Hematocrit 24.6 % L 38.2-49.6 12/18/2017 5:50am 12/18/2017 6:26am Mean Corpuscular Volume 86.3 fL 81-99 12/18/2017 5:50am 12/18/2017 6: 26am Mean Corpuscular Hemoglobin 29.1 pg 28-32 12/18/2017 5:50am 12/18/2017 6:26am Mean Corpuscular Hemoglobin Concent 33.7 g/dL 31-35 12/18/2017 5:50am 12/18/2017 6:26am Red Cell Distribution Width 15.4 % H 11.7-14.4 12/18/2017 5:50am 2017 6:26am Platelet Count 239 x10e3/uL 140-360 12/18/2017 5:50am 12/18/2017 6: 26am Neutrophils (%) (Auto) 53.7 % 38.7-80.0 12/18/2017 5:50am 12/18/2017 6: 26am Lymphocytes (%) (Auto) 21.1 % 18.0-39.1 12/18/2017 5:50am 12/18/2017 6: 26am Monocytes (%) (Auto) 16.8 % H 4.4-11.3 12/18/2017 5:50am 12/18/2017 6: 26am Eosinophils (%) (Auto) 6.6 % H 0.0-6.0 12/18/2017 5:50am 12/18/2017 6: 26am Basophils (%) (Auto) 0.8 % 0.0-1.0 12/18/2017 5:50am 12/18/2017 6:26am IM GRANULOCYTES % 1.0 % 0.0-1.0 12/18/2017 5:50am 12/18/2017 6:26am Neutrophils # (Auto) 2.6 2.1-6.9 12/18/2017 5:50am 12/18/2017 6:26am Lymphocytes # (Auto) 1.0 1.0-3.2 12/18/2017 5:50am 12/18/2017 6:26am Monocytes # (Auto) 0.8 0.2-0.8 12/18/2017 5:50am 12/18/2017 6:26am Eosinophils # (Auto) 0.3 0.0-0.4 12/18/2017 5:50am 12/18/2017 6:26am Basophils # (Auto) 0.0 0.0-0.1 12/18/2017 5:50am 12/18/2017 6:26am Absolute Immature Granulocyte (auto 0.05 x10e3/uL 0-0.1 12/18/2017 5: 50am 12/18/2017 6:26am Prothrombin Time 14.2 seconds 11.9-14.5 12/10/2017 10:10pm 12/10/2017 10:35pm Prothromb Time International Ratio 1.05 12/10/2017 10:10pm 2017 10:35pm Oral Anticoagulant Therapy INR Values: 1. Low Intensity Therapy 1.5 - 2.0 2. Moderate Intensity Therapy 2.0 - 3.0 3. High Intensity Therapy(1) 2.5 - 3.5 4. High Intensity Therapy(2) 3.0 - 4.0 5. Panic Value INR > 5.0 Activated Partial Thromboplast Time 36.4 seconds H 23.8-35.5 12/10/2017 10:10pm 12/10/2017 10:36pm Urine Color IFEANYI H YELLOW 12/11/2017 1:20am 12/11/2017 1:55am Urine Clarity SL CLOUDY H CLEAR 12/11/2017 1:20am 12/11/2017 1:55am Urine Specific [place] 1.020 1.010-1.025 12/11/2017 1:20am 2017 1:55am Urine pH 5 5 - 7 12/11/2017 1:20am 12/11/2017 1:55am Urine Leukocyte Esterase NEGATIVE NEGATIVE 12/11/2017 1:20am 2017 1:55am Urine Nitrite NEGATIVE NEGATIVE 12/11/2017 1:20am 12/11/2017 1:55am Urine Protein NEGATIVE NEGATIVE 12/11/2017 1:20am 12/11/2017 1:55am Urine Glucose (UA) NEGATIVE NEGATIVE 12/11/2017 1:20am 12/11/2017 1: 55am Urine Ketones NEGATIVE NEGATIVE 12/11/2017 1:20am 12/11/2017 1:55am Urine Urobilinogen 0.2 mg/dL 0.2 - 1 12/11/2017 1:20am 12/11/2017 1: 55am Urine Bilirubin 1+ H NEGATIVE 12/11/2017 1:20am 12/11/2017 1:55am Confirmatory test currently unavailable. False positive results may occur. Urine Blood TRACE H NEGATIVE 12/11/2017 1:20am 12/11/2017 1:55am Urine WBC 6-10 /HPF H 0-5 12/11/2017 1:20am 12/11/2017 2:07am Urine RBC 6-10 /HPF H 0-5 12/11/2017 1:20am 12/11/2017 2:07am Urine Bacteria FEW /HPF NONE 12/11/2017 1:20am 12/11/2017 2:07am Urine Epithelial Cells FEW /LPF NONE 12/11/2017 1:20am 12/11/2017 2: 07am Sodium Level 131 mmol/L L 136-145 12/18/2017 2:35pm 12/18/2017 3:11pm Potassium Level 3.6 mmol/L 3.5-5.1 12/18/2017 2:35pm 12/18/2017 3:11pm Chloride Level 92 mmol/L L 98-107 12/18/2017 2:35pm 12/18/2017 3:11pm Carbon Dioxide Level 24 mmol/L 22-29 12/18/2017 2:35pm 12/18/2017 3: 11pm Anion Gap 18.6 mmol/L H 8-16 12/18/2017 2:35pm 12/18/2017 3:11pm Blood Urea Nitrogen 6 mg/dL L 7-12/18/2017 2:35pm 12/18/2017 3:11pm Creatinine 0.84 mg/dL 0.72-1.25 12/18/2017 2:35pm 12/18/2017 3:11pm BUN/Creatinine Ratio 7 6-25 12/18/2017 2:35pm 12/18/2017 3:11pm Estimat Glomerular Filtration Rate > 60 ML/MIN 60- 12/18/2017 2:35pm 3:11pm Ranges were taken from the National Kidney Disease Education Program and the National Kidney Foundation literature. Reference ranges: 60 or greater: Normal 16-59 (for 3 consecutive months): Chronic kidney disease 15 or less: Kidney failure Glucose Level 84 mg/dL 74-118 12/18/2017 2:35pm 12/18/2017 3:11pm Calcium Level 9.1 mg/dL 8.4-10.2 12/18/2017 2:35pm 12/18/2017 3:11pm Bedside Glucose 65 mg/dL L 70-120 12/13/2017 4:02pm 12/13/2017 4:11pm Meter ID: [id number] Lactic Acid Level 7.1 MG/DL 4.5-19.8 12/11/2017 2:51am 12/11/2017 3: 12am Phosphorus Level 3.5 MG/DL 2.3-4.7 12/16/2017 5:44am 12/16/2017 6:36am Magnesium Level 1.5 MG/DL 1.3-2.1 12/18/2017 5:50am 12/18/2017 6:52am Iron Level 16 ug/dL L 65-175 12/17/2017 5:56am 12/17/2017 7:03am Total Iron Binding Capacity 174 ug/dL L 261-478 12/17/2017 5:56am 2017 7:03am Percent Iron Saturation 9 % L 15-50 12/17/2017 5:56am 12/17/2017 7:03am Transferrin 124 mg/dL L 174-364 12/17/2017 5:56am 12/17/2017 7:03am Ferritin 593.31 ng/mL H 21.81-274.66 12/17/2017 5:56am 12/17/2017 7: 17am Total Bilirubin 0.3 mg/dL 0.2-1.2 12/18/2017 5:50am 12/18/2017 6:52am Aspartate Amino Transf (AST/SGOT) 30 IU/L 5-34 12/18/2017 5:50am 2017 6:52am Alanine Aminotransferase (ALT/SGPT) 21 IU/L 0-55 12/18/2017 5:50am 6:52am Total Protein 6.0 g/dL L 6.5-8.1 12/18/2017 5:50am 12/18/2017 6:52am Albumin 2.4 g/dL L 3.5-5.0 12/18/2017 5:50am 12/18/2017 6:52am Globulin 3.6 g/dL H 2.3-3.5 12/18/2017 5:50am 12/18/2017 6:52am Albumin/Globulin Ratio 0.7 L 0.8-2.0 12/18/2017 5:50am 12/18/2017 6: 52am Alkaline Phosphatase 55 IU/L 40-150 12/18/2017 5:50am 12/18/2017 6: 52am B-Type Natriuretic Peptide 379.4 pg/mL H 0-100 12/12/2017 5:55am 2017 7:02am Creatine Kinase 292 IU/L H 30-200 12/10/2017 10:10pm 12/10/2017 10:45pm Creatine Kinase MB 4.00 ng/mL 0.00-5.00 12/10/2017 10:10pm 12/10/2017 10:49pm Troponin I 0.033 ng/mL 0-0.300 12/10/2017 10:10pm 12/10/2017 10:49pm Vitamin B12 Level 1419 pg/mL H 213-816 12/17/2017 5:56am 12/17/2017 7: 52am Folate 17.7 ng/mL H 7.0-15.4 12/17/2017 5:56am 12/17/2017 7:52am Thyroid Stimulating Hormone (TSH) 2.722 uIU/mL 0.350-4.940 12/12/2017 5: 55am 12/12/2017 7:06am Stool Occult Blood POSITIVE H NEGATIVE 12/16/2017 5:30pm 12/16/2017 5: 42pm Procedures Procedure Status Date Provider(s) FEM/POPL REVAS W/ATHER Completed 05/26/17 STEVENSON BRANDON MD EGD with biopsy Active 12/18/[address] of abdomen and pelvis without contrast Active 12/10/17 NESSA ZENG MD Ultrasound, renal Active 12/11/17 KYRA DA SILVA X-ray of chest, two views Active 12/15/17 FIDE GILLESPIE [employer] TE[employer]ER Encounters Encounter Location Arrival/Admit Date Discharge/Depart Date Attending Provider Discharged Inpatient [facility] 12/11/17 12:54am 4:34pm RENATA REMY MD Discharged Inpatient (obs) [facility] 12/05/17 4:29pm 01/18 11:06am STEVENSON BRANDON MD Discharged Inpatient (obs) [facility] 05/26/17 2:45pm 9:11am STEVENSON BRANDON MD
--- NOTE | 2018-01-21 08:41 | Operative Report ---
DATE OF PROCEDURE: January 21, 2018 PROCEDURE PERFORMED: Esophagogastroduodenoscopy with biopsies. REFERRING PHYSICIAN: Dr. Dwayne Raymond INDICATIONS FOR EGD: Anemia, melena, and occult blood in stools. MEDICATION: Patient was done under MAC. Please see anesthesiologist note. PROCEDURE IN DETAIL: With the patient in the left lateral decubitus position, a flexible fiberoptic Olympus gastroscope was introduced into the esophagus under direct visualization without any difficulty. The esophagus appeared to be within normal limits. The scope was then advanced with ease into his stomach. Mucosa overlying the antrum revealed some patchy intense erythema and mild to moderate edema, and biopsies were obtained and sent to stain for H. pylori. Pylorus appeared to be of normal contour and shape. It was intubated with ease and the scope was advanced all the way to the second portion of the duodenum. The scope was then withdrawn slowly, and some submucosal nodules were noted with yellowish hue, biopsies were obtained. The mucosa overlying the duodenal bulb appeared to be within normal limits. The scope was then withdrawn back into the stomach and retroflexed. Mucosa overlying the fundus and the cardia appeared to be within normal limits. The scope was then straightened out. The stomach was decompressed. The scope was subsequently withdrawn. Patient tolerated the procedure well. IMPRESSION: 1. Normal esophagus. 2. Gastritis, biopsied. Biopsies sent to stain for Helicobacter pylori. 3. Submucosal nodules, proximal second portion of the duodenum, biopsies obtained. PLAN: Follow up histology. Continue omeprazole 40 mg 1 p.o. q.a.m. a.c. Findings do not explain patient's anemia. Will need a colonoscopy. Job#: [id number] cc:DO MARV ALEJANDRA DO
== END | disposition home or self-care (01) ==
LOC: OR 07:08
PROVIDERS: ATTEND Internal Medicine Gastroenterology
DX: D64.9 Anemia, unspecified (principal); K29.70 Gastritis, unspecified, without bleeding; K31.89 Other diseases of stomach and duodenum; I10 Essential (primary) hypertension; I45.10 Unspecified right bundle-branch block; M06.9 Rheumatoid arthritis, unspecified; Z79.02 Long term (current) use of antithrombotics/antiplatelets; Z79.82 Long term (current) use of aspirin
CPT/HCPCS: 43239

== ENCOUNTER → 2018-02-10 | Day surgery (SDC) | payer OTHER, MEDICARE ==
[2018-02-09 14:59] LABS: BASOPHILS # (AUTO) 0.1 (0.0-0.1); BASOPHILS % 0.7 % (0.0-1.0); EOSINOPHILS # (AUTO) 0.1 (0.0-0.4); EOSINOPHILS % 1.5 % (0.0-6.0); HEMATOCRIT 39.5 % (38.2-49.6); HEMOGLOBIN 12.7 g/dL (14.0-18.0); LYMPHOCYTES # (AUTO) 1.2 (1.0-3.2); LYMPHOCYTES % 16.7 % (18.0-39.1); MEAN CORPUSCULAR HEMOGLOBIN 28.7 pg (28-32); MEAN CORPUSCULAR HGB CONC 32.2 g/dL (31-35); MEAN CORPUSCULAR VOLUME 89.4 fL (81-99); MONOCYTES # (AUTO) 0.7 (0.2-0.8); MONOCYTES % 8.8 % (4.4-11.3); NEUTROPHILS # (AUTO) 5.3 (2.1-6.9); NEUTROPHILS % 71.3 % (38.7-80.0); PLATELET COUNT 284 x10e3/uL (140-360); RED BLOOD COUNT 4.42 x10e6/uL (4.3-5.7); RED CELL DISTRIBUTION WIDTH 17.3 % (11.7-14.4)
[2018-02-09 15:08] LABS: INR 1.22; PROTHROMBIN TIME 14.5 seconds (11.9-14.5)
[2018-02-09 15:16] LABS: ALBUMIN 4.1 g/dL (3.5-5.0); ALBUMIN/GLOBULIN RATIO 1.2 (0.8-2.0); ANION GAP 13.7 mmol/L (8-16); CALCIUM 10.1 mg/dL (8.4-10.2); CHOL/HDL RATIO 3.3 (3.9-4.7); CREATININE, SERUM 1.21 mg/dL (0.72-1.25); POTASSIUM 3.7 mmol/L (3.5-5.1)
[~2018-02-10] VITALS: Ht 365.8 cm; Wt 88.9 kg
[2018-02-10] VITALS (16 sets, daily range): BP systolic 103–183; BP diastolic 55–116
[~2018-02-10] MED LIST changes: +ALPRAZOLAM 0.5 MG TAB ONE; +DIPHENHYDRAMINE HCL 25 MG CAP ONE; +FENTANYL CITRATE/PF 100MCG/2 ML INJ ONE; +HEPARIN SOD (PORCINE) 1000 UNIT/ML 30ML ONE; +HEPARIN SOD/SOD CHLORIDE 2,000 ML ONE; +IOPAMIDOL 300MG/ML 100 ML INFUS..BTL IV ONE; +LABETALOL HCL 20 ML ONE; +LIDOCAINE HCL 2% LOCAL 20 ML VIAL ONE; +MIDAZOLAM HCL 2 MG/2 ML VIAL ONE; +NITROGLYCERIN/D5W 200 MCG/ML 250 ML ONE; -PROPOFOL IV EMULSION 10 MG/ML 50 ML VIAL ONE; +SODIUM CHLORIDE 0.9% 1000ML 1,000 ML ONE; +VERAPAMIL HCL 2.5 MG/ML 2 ML VIAL ONE
--- NOTE | 2018-02-10 10:23 | Operative Report ---
DATE OF PROCEDURE: February 10, 2018 INDICATIONS: Peripheral arterial disease. PROCEDURES PERFORMED 1. Third-order catheter placement in the right femoral artery and left superficial femoral artery with unilateral extremity angiogram. 2. Additional third-order catheter placed in the right femoral artery and the left anterior tibial artery and additional unilateral extremity angiogram. 3. Atherectomy and drug-coated balloon angioplasty of the left common femoral artery. 4. Secondary thrombectomy of the left common femoral artery. 5. Stent placement of the left common iliac artery. COMPLICATIONS: None. RECOMMENDATIONS: Dual antiplatelet therapy for at least 6 months. BLOOD LOSS: 10 mL. Access obtained in the right femoral artery. A 6-Kyrgyz sheath was placed and advanced up and over across the iliac bifurcation (3rd-order catheter placement), and 80% stenosis of the left common femoral and iliac arteries. A decision was made to intervene. Distal femoral artery had 50% stenosis with 2-vessel runoff to the left foot via the anterior tibial and peroneal arteries. The catheter was advanced. The anterior tibial artery confirmed pedal formation of the dorsalis pedis. The wires were exchanged to a Viper wire. Orbital atherectomy of the left femoral arteries performed. Large amounts of visible thrombus for which manual aspiration thrombectomy was required. Balloon angioplasty 6 x 100 mm drug-coated balloon was performed following which a single 8 x 80 mm stent was deployed in the left common iliac artery and post dilated with an 8-mm balloon. Excellent end result. Two-vessel runoff to the left foot. No complications. Sheath was secured in place for removal under manual pressure. The patient received intravenous heparin at the initiation of the case of 10,000 units with an ACT of 271. Patient was discharged home same day. Job#: [id number] DE
== END | disposition home or self-care (01) ==
LOC: CATH LAB 06:23
PROVIDERS: ATTEND Internal Medicine Interventional Cardiology
DX: I70.208 Unspecified atherosclerosis of native arteries of extremities, other extremity (principal); I11.0 Hypertensive heart disease with heart failure; I50.32 Chronic diastolic (congestive) heart failure; R60.0 Localized edema; Z01.812 Encounter for preprocedural laboratory examination; Z79.02 Long term (current) use of antithrombotics/antiplatelets; Z79.82 Long term (current) use of aspirin
CPT/HCPCS: 36415; 37186; 37225; 80053; 80061; 85025; 85610; C1724; C1725 ×2; C1769; C1876; C1887; J1644; J2001; J2250; J3490; J7030; Q9967; 36140; 77002; 92924; 92928

== ENCOUNTER → 2019-01-19 | Day surgery (SDC) | payer BC, MEDICARE ==
[2019-01-18 17:42] LABS: BASOPHILS # (AUTO) 0.1 (0.0-0.1); BASOPHILS % 0.7 % (0.0-1.0); EOSINOPHILS # (AUTO) 0.2 (0.0-0.4); HEMATOCRIT 34.7 % (38.2-49.6); HEMOGLOBIN 11.4 g/dL (14.0-18.0); LYMPHOCYTES # (AUTO) 1.5 (1.0-3.2); LYMPHOCYTES % 21.2 % (18.0-39.1); MEAN CORPUSCULAR HEMOGLOBIN 30.5 pg (28-32); MEAN CORPUSCULAR HGB CONC 32.9 g/dL (31-35); MEAN CORPUSCULAR VOLUME 92.8 fL (81-99); MONOCYTES # (AUTO) 0.7 (0.2-0.8); MONOCYTES % 9.8 % (4.4-11.3); NEUTROPHILS # (AUTO) 4.6 (2.1-6.9); NEUTROPHILS % 63.4 % (38.7-80.0); PLATELET COUNT 286 x10e3/uL (140-360); RED BLOOD COUNT 3.74 x10e6/uL (4.3-5.7); RED CELL DISTRIBUTION WIDTH 15.9 % (11.7-14.4)
[2019-01-18 17:51] LABS: INR 1.04; PROTHROMBIN TIME 14.1 seconds (11.9-14.5)
[2019-01-18 18:01] LABS: ALBUMIN/GLOBULIN RATIO 1.2 (0.8-2.0); CALCIUM 9.3 mg/dL (8.4-10.2); CHOL/HDL RATIO 4.2 (3.9-4.7); CREATININE, SERUM 1.63 mg/dL (0.72-1.25)
[~2019-01-19] VITALS: Ht 182.9 cm; Wt 89.4 kg
[~2019-01-19] MED LIST changes: +ASPIRIN 325 MG TAB ONE; -LABETALOL HCL 20 ML ONE; +LISINOPRIL-HCT1 EAC1 PO; -NITROGLYCERIN/D5W 200 MCG/ML 250 ML ONE; +POTASSIUM99 M1 PO; +TICAGRELOR 90 MG TABLET ONE
--- NOTE | 2019-01-19 12:15 | NUR ---
pt in ACU 8, prepped for procedure. Alert oriented and appropriate, PERRLA, respirations even and unlabored to room air. Pulses x4 extremities equal and faint. Pedal pulses PT/DP weak to nonexistent and marked. Cap fill brisk < 3 sec. bilateral feet semi cool and pale. Skin warm and dry integrity appears intact in general. IV 20g to right AC started and presents healthy w/o s/s of infiltration or complaint. NS 0.9% started at 100ml/hr per dial flow. Abdomen soft and supple. pt offered toileting, denies need to urinate or defecate. Personal affects with patient. Family at bedside. Pt and family verbalizes understanding of POC. Pre-Op Meds benadryl and xanax given. bed low and locked, side rails up x2 and call light at side. -cgf
--- NOTE | 2019-01-19 23:09 | Operative Report ---
DATE OF PROCEDURE: 01/19/2019 SURGEON: Neeraj Valencia MD INDICATION: Peripheral arterial disease, claudication, right lower extremity. PROCEDURES PERFORMED: 1. Abdominal aortogram. 2. Bilateral lower extremity angiograms. 3. Selective catheter replacement in the right femoral artery and left superficial femoral artery. 4. Additional third-order catheter placement from the left femoral artery to the right anterior tibial artery. 5. Right common iliac stent placement. 6. Atherectomy, balloon angioplasty, and stent placement to the right femoral artery. 7. Deployment of left groin Vascade closure device. COMPLICATIONS: None. BLOOD LOSS: 10 mL. RECOMMENDATION: Dual antiplatelet therapy for life, staged intervention of the left common femoral and superficial femoral artery. Telemetry for multiple pauses during the procedure. DESCRIPTION OF PROCEDURE: Access obtained in the left femoral artery. Abdominal aortogram demonstrated 80% stenosis in the right common iliac artery prior to a previously placed stent, left common femoral artery 90% stenosis, left proximal superficial femoral artery 90% stenosis. The right femoral artery appeared to be occluded, was not well visualized. The catheter was advanced from the left femoral artery to the right superficial femoral artery, complete occlusion of the femoral artery with two-vessel runoff. A decision was made to intervene on the right iliac and superficial femoral arteries. The patient received heparin and Brilinta and aspirin for anticoagulation. The lesion was crossed using a Roadrunner wire. Orbital atherectomy using a 2 mm crown was performed. Large amounts of visible thrombus necessitating secondary aspiration thrombectomy. Overlapping 6 mm stents were placed, post dilated with a drug-coated balloon and a single stent was placed, 8 mm in the right common iliac artery, excellent end result, less than 10% of the stenosis with two-vessel runoff to the right foot. Left groin repaired using Vascade closure device. The patient discharged home on the same day. Neeraj Valencia MD KSB/MODL /[id number]
== END | disposition home or self-care (01) ==
LOC: CATH LAB 09:33
PROVIDERS: ATTEND Internal Medicine Interventional Cardiology
DX: I70.211 Atherosclerosis of native arteries of extremities with intermittent claudication, right leg (principal); I11.0 Hypertensive heart disease with heart failure; I50.32 Chronic diastolic (congestive) heart failure; Z01.812 Encounter for preprocedural laboratory examination; Z79.02 Long term (current) use of antithrombotics/antiplatelets; Z79.82 Long term (current) use of aspirin; Z87.891 Personal history of nicotine dependence
CPT/HCPCS: 36415; 37186; 37221; 37227; 75716; 80053; 80061; 85025; 85610; C1724; C1725; C1760; C1769 ×2; C1876 ×2; C1887 ×2; C2623; J1644; J2001; J2250; J7030; Q9967; 36247

== ENCOUNTER 2019-02-26 06:52 | Observation (INO) | payer MEDICARE, BC ==
[2019-02-22 15:55] LABS: BASOPHILS % 0.6 % (0.0-1.0); EOSINOPHILS # (AUTO) 0.1 (0.0-0.4); EOSINOPHILS % 2.1 % (0.0-6.0); HEMATOCRIT 31.7 % (38.2-49.6); HEMOGLOBIN 10.2 g/dL (14.0-18.0); LYMPHOCYTES # (AUTO) 1.4 (1.0-3.2); LYMPHOCYTES % 21.1 % (18.0-39.1); MEAN CORPUSCULAR HEMOGLOBIN 29.9 pg (28-32); MEAN CORPUSCULAR HGB CONC 32.2 g/dL (31-35); MONOCYTES # (AUTO) 0.8 (0.2-0.8); MONOCYTES % 11.7 % (4.4-11.3); NEUTROPHILS # (AUTO) 4.1 (2.1-6.9); NEUTROPHILS % 62.7 % (38.7-80.0); PLATELET COUNT 241 x10e3/uL (140-360); RED BLOOD COUNT 3.41 x10e6/uL (4.3-5.7); RED CELL DISTRIBUTION WIDTH 17.1 % (11.7-14.4)
[2019-02-22 16:12] LABS: INR 0.95; PROTHROMBIN TIME 13.2 seconds (11.9-14.5)
[2019-02-22 16:14] LABS: ALBUMIN 4.2 g/dL (3.5-5.0); ALBUMIN/GLOBULIN RATIO 1.3 (0.8-2.0); ANION GAP 16.3 mmol/L (8-16); CALCIUM 10.6 mg/dL (8.4-10.2); CREATININE, SERUM 1.26 mg/dL (0.72-1.25); POTASSIUM 4.3 mmol/L (3.5-5.1)
[2019-02-26] VITALS (27 sets, daily range): BP systolic 100–166; BP diastolic 57–88
[~2019-02-26] VITALS: Ht 182.9 cm; Wt 94.3 kg
[~2019-02-26 06:52] MED LIST changes: -ALPRAZOLAM 0.5 MG TAB ONE; -ASPIRIN 325 MG TAB ONE; -DIPHENHYDRAMINE HCL 25 MG CAP ONE; -FENTANYL CITRATE/PF 100MCG/2 ML INJ ONE; -HEPARIN SOD (PORCINE) 1000 UNIT/ML 30ML ONE; -HEPARIN SOD/SOD CHLORIDE 2,000 ML ONE; -IOPAMIDOL 300MG/ML 100 ML INFUS..BTL IV ONE; -LIDOCAINE HCL 2% LOCAL 20 ML VIAL ONE; -MIDAZOLAM HCL 2 MG/2 ML VIAL ONE; -SODIUM CHLORIDE 0.9% 1000ML 1,000 ML ONE; -TICAGRELOR 90 MG TABLET ONE; -VERAPAMIL HCL 2.5 MG/ML 2 ML VIAL ONE
[2019-02-26] MEDS ORDERED: HEPARIN SOD (PORCINE) 1000 UNIT/ML 30ML ONE (07:16)
[2019-02-26] MEDS ORDERED: FENTANYL CITRATE/PF 100MCG/2 ML INJ ONE (07:17)
[2019-02-26] MEDS ORDERED: LIDOCAINE HCL 2% LOCAL 20 ML VIAL ONE (07:17)
[2019-02-26] MEDS ORDERED: MIDAZOLAM HCL 2 MG/2 ML VIAL ONE ×2 (07:17→08:09)
[2019-02-26] MEDS ORDERED: IOPAMIDOL 300MG/ML 50ML INFUS..BTL IV ONE (07:18)
[2019-02-26] MEDS ORDERED: NITROGLYCERIN/D5W 200 MCG/ML 250 ML ONE (07:18)
[2019-02-26] MEDS ORDERED: SODIUM CHLORIDE 0.9% 1000ML 1,000 ML ONE ×2 (08:07→10:24)
[2019-02-26] MEDS ORDERED: VERAPAMIL HCL 2.5 MG/ML 2 ML VIAL ONE (08:07)
[2019-02-26] MEDS ORDERED: ASPIRIN 325 MG TAB ONE (08:24)
[2019-02-26] MEDS ORDERED: TICAGRELOR 90 MG TABLET ONE (08:24)
--- NOTE | 2019-02-26 08:36 | NUR ---
0836 Received pt to rm #9 Identifier x2 Peripheral angio Dr Valencia CSI fix.via 6Fr sheath site. Aware to keep HOB down and rt leg straight, Family at Bedside [phone] Back to baseline orientation Resp shallow and regular 100% RA Abdomen soft and non tender Denies necessity to defecate or urinate bilaeral PP pulses present Dp x2 palpable PT with Doppler Bilateral. Left IV infusing ns a 100cc hr site w/o s/s infiltration. Discussed POC with and pt Md did speak with family already. ds/rn
--- NOTE | 2019-02-26 09:30 | NUR ---
act 266 remain flat and leg strait no gross signs pain,pallor,pressure or dysrhythmia.
--- NOTE | 2019-02-26 10:30 | NUR ---
1030 ACT 225 no gross signs pain,pallor,pressure,bleeding or dysrhythmia. ds/rn
[2019-02-26] MEDS: MORPHINE SULFATE INJ 4 MG/ML INJ 1ML ONE ×2 (11:01→11:28)
--- NOTE | 2019-02-26 11:01 | NUR ---
C/o left leg pain popliteal to foot. "heavy and severe pain ,had never before"stated Bilateral feet with pulses and warm ok, VS stable Monitor remains in sinus lety 1st degree.Medicated with 4mg Morphine Ivp .Pt states no relief .Paged MD office and text. Awaiting response. ds/rn
--- NOTE | 2019-02-26 11:45 | NUR ---
1145 act 188 continue to monitor no gross signs pain,pallor,pressure,bleeding or dysrhythmia. ds/rn
--- NOTE | 2019-02-26 12:50 | NUR ---
ACT drawn from right sheath. ACT result 160. WIll prepare to remove right groin sheath.
--- NOTE | 2019-02-26 13:08 | NUR ---
Right groin sheath removed by Aiyana PASCUAL. Manual pressure being held by Aiyana PASCUAL.
--- NOTE | 2019-02-26 13:22 | NUR ---
Hemostasis achieved per Aiyana FILENET P8 DEVELOPER. Dressing applied per unit protocol with Jenny Patch. Dressing to right groin is clean,dry, and intact. Right groin is soft upon palpation.
[2019-02-26] MEDS ORDERED: MORPHINE SULFATE INJ 4 MG/ML INJ 1ML ONE (13:37)
--- NOTE | 2019-02-26 13:45 | NUR ---
1345 Medicated morphine 4mg ivp for total 8mg in lab animal technician recovery area. Preparing for transfer to floor monitoring for remainder flat time 730pm. May have additional 1mg Dilaudid ivp x1 per Dr Valencia written order. Md aware of pt continues to voice pain 7-8 of 10 to left leg. Rt Groin site w/o sign hematoma or bleeding Jenny patch intake. PPx4 adequate. ds/rn
--- NOTE | 2019-02-26 13:55 | NUR ---
Notified Admissions to change patient status to virtual bed before transfer to observation room.
--- NOTE | 2019-02-26 14:30 | NUR ---
Phoned report to nursing staff Susan DICK. Staff informed and aware of pt pain tolerance issue with 100 Fentanyl,4 Versed 325 ASA 180 Brilinta and 9000 Heparin in shop laborer for left leg fix with rt sheath pull and stasis achieved Jenny patch dry and intact. Pedal pulse present x4 DP/PT. Family at bedside and discharge teaching done. Flat till 730pm and may dc home May medicate x1 Dilaudid ivp for "re-profusion pain" non relieved to left leg. Please continue monitoring rt groin and PP No gross issues with pain or pallor. EKg remain SB wiht 1st degree aberrancies. Transported to floor care with tele box and RNx2 on stretcher to room #178. ds/alesia
--- NOTE | 2019-02-26 14:59 | Operative Report ---
DATE OF PROCEDURE: 02/26/2019 SURGEON: Neeraj Valencia MD INDICATION: Peripheral arterial disease and claudication. PROCEDURES PERFORMED: 1. Third order catheter placement in the right femoral artery and left superficial femoral artery with unilateral extremity angiogram. 2. Atherectomy and balloon angioplasty of the left femoral artery. 3. Secondary thrombectomy of the left femoral artery. RECOMMENDATIONS: Manual removal of the right femoral artery sheath. Dual antiplatelet therapy for life. COMPLICATIONS: None. DESCRIPTION OF PROCEDURE: Access obtained in the right femoral artery. A 6-Armenian sheath was advanced in the right femoral artery and left superficial femoral artery with unilateral extremity angiogram. There was calcification of the previously placed stent in the left iliac artery, 50% stenosis in left common femoral artery, 50% stenosis in the mid left superficial femoral artery, 80% stenosis in the distal left superficial femoral artery, complete occlusion of the posterior tibial and peroneal artery. Single-vessel runoff by high takeoff anterior tibial vessel on the left side. A decision was made to intervene on the left femoral artery. The patient received 7000 units of intravenous heparin and ACT of 294. The lesion was crossed using a Glidewire, which was subsequently exchanged to a Viper wire. Orbital atherectomy using a 1.5 mm CSI device was performed and with large amounts of visible thrombus for which manual aspiration secondary thrombectomy was required. Balloon angioplasty with a 6 mm drug-coated balloon was performed. Excellent single-vessel runoff. No complications. Sheath was secured in place for removal under manual pressure. The patient was discharged home same day. MD PRABHAKAR Khan/MODL /[id number]
[2019-02-26] MEDS ORDERED: HYDROMORPHONE 1MG/1ML INJ IV STA (15:59)
[2019-02-26] MEDS ORDERED: HYDROMORPHONE 2MG/ML 2 MG/ML ML IV ONE (16:15)
== END 2019-02-26 19:58 | disposition home or self-care (01) ==
LOC: CATH LAB 06:52 → PACU V 14:11 → IMCU 14:25
PROVIDERS: ADMIT Internal Medicine Interventional Cardiology; ATTEND Internal Medicine Interventional Cardiology
DX: I70.211 Atherosclerosis of native arteries of extremities with intermittent claudication, right leg (principal); Z01.812 Encounter for preprocedural laboratory examination; Z88.0 Allergy status to penicillin; I11.0 Hypertensive heart disease with heart failure; I50.32 Chronic diastolic (congestive) heart failure; I45.5 Other specified heart block
CPT/HCPCS: 36415; 37186; 37225; 80053; 85025; 85347; 85610; C1724; C1769 ×2; C1887 ×3; C2623; G0378; J1170; J1644; J2001; J2250; J2270; J7030; Q9967; 36247; 75710

== ENCOUNTER → 2019-12-31 | Day surgery (SDC) | payer BC, MEDICARE ==
[2019-12-29 11:31] LABS: BASOPHILS # (AUTO) 0.1 (0.0-0.1); BASOPHILS % 0.6 % (0.0-1.0); EOSINOPHILS # (AUTO) 0.1 (0.0-0.4); EOSINOPHILS % 1.3 % (0.0-6.0); HEMATOCRIT 35.7 % (38.2-49.6); HEMOGLOBIN 11.6 g/dL (14.0-18.0); LYMPHOCYTES % 12.2 % (18.0-39.1); MEAN CORPUSCULAR HEMOGLOBIN 31.6 pg (28-32); MEAN CORPUSCULAR HGB CONC 32.5 g/dL (31-35); MEAN CORPUSCULAR VOLUME 97.3 fL (81-99); MONOCYTES % 12.1 % (4.4-11.3); NEUTROPHILS # (AUTO) 6.1 (2.1-6.9); NEUTROPHILS % 72.5 % (38.7-80.0); PLATELET COUNT 232 x10e3/uL (140-360); RED BLOOD COUNT 3.67 x10e6/uL (4.3-5.7); RED CELL DISTRIBUTION WIDTH 14.7 % (11.7-14.4)
[2019-12-29 11:48] LABS: ALBUMIN 4.4 g/dL (3.5-5.0); ALBUMIN/GLOBULIN RATIO 1.4 (0.8-2.0); ANION GAP 15.3 mmol/L (8-16); CALCIUM 9.9 mg/dL (8.4-10.2); CREATININE, SERUM 1.36 mg/dL (0.72-1.25); POTASSIUM 4.3 mmol/L (3.5-5.1)
--- NOTE | 2019-12-29 14:45 | NUR ---
Dr. Valencia notified of BUN 35, creatinine 1.36, eGFR 51. No new orders at this time.
[~2019-12-31] VITALS: Ht 182.9 cm; Wt 88.5 kg
[2019-12-31] VITALS (15 sets, daily range): BP systolic 118–144; BP diastolic 50–80
[~2019-12-31] MED LIST changes: +ALPRAZOLAM 0.5 MG TAB ONE; +DIPHENHYDRAMINE HCL 25 MG CAP ONE; +FENTANYL CITRATE/PF 100MCG/2 ML INJ ONE; +HEPARIN SOD (PORCINE) 1000 UNIT/ML 30ML ONE; +HEPARIN SOD/SOD CHLORIDE 2,000 ML ONE; +IOPAMIDOL 300MG/ML 100 ML INFUS..BTL IV ONE; +LIDOCAINE HCL 2% LOCAL 20 ML VIAL ONE; +MEN'S MULTIVIT1 EACH PO; +MIDAZOLAM HCL 2 MG/2 ML VIAL ONE; +SODIUM CHLORIDE 0.9% 1000ML 1,000 ML ONE; +SODIUM CHLORIDE 0.9% 50ML 50 ML ONE; +TURMERIC538 MG PO; +VERAPAMIL HCL 2.5 MG/ML 2 ML VIAL ONE
--- NOTE | 2019-12-31 09:00 | NUR ---
0900a pt in Rm #9, Identiferx2 Received repot from Shelby DICK. Alert oriented and appropriate, PERRLA, respirations even and unlabored to room air. Pulses x4 extremities equal and faint. Pedal pulses PT/DPx4 Cap fill brisk < 3 sec. bilateral feet semi cool and pale. Skin warm and dry integrity appears intact in general. IV left hand at 100cchr. presents healthy w/o s/s of infiltration or complaint. NS 0.9% started at 100ml/hr per dial flow. Abdomen soft and supple. pt offered toileting, denies need to urinate or defecate. Personal affects with patient. Family at bedside. Pt and family verbalizes understanding of POC. Downtime till 245pm. Family at bedside dc papers explained ranjan/[place]
--- NOTE | 2019-12-31 13:35 | Operative Report ---
DATE OF PROCEDURE: 12/31/2019 SURGEON: Neeraj Valencia MD INDICATIONS: Peripheral arterial disease, critical limb ischemia, and claudication of the bilateral lower extremity. PROCEDURES PERFORMED: 1. Abdominal aortogram. 2. Bilateral lower extremity angiograms. 3. Selective catheter placement from the right femoral artery to the left superficial femoral artery. 4. Additional third-order catheter placement from the right femoral artery to the left anterior tibial artery. 5. Atherectomy and drug-coated balloon angioplasty of the left femoral artery. 6. Secondary thrombectomy of the left femoral artery. COMPLICATIONS: None. RECOMMENDATIONS: Staged intervention in the right femoral artery. BLOOD LOSS: Minimal. DESCRIPTION OF PROCEDURE: Access was obtained in the right femoral artery. A 6-Persian sheath was placed. Stents in the iliac artery had 50% in-stent restenosis. Abdominal aorta small aneurysm noted. The left femoral artery was not well visualized. The catheter was then advanced in the right femoral artery to the left superficial femoral artery. Complete occlusion of the left femoral artery. Single-vessel runoff via the anterior tibial artery. Diagnostic portion of this procedure was now complete. Intervention was deemed necessary in the occluded left femoral artery. The patient received 10,000 units of intra-arterial heparin. The lesion was crossed using a Roadrunner wire. Orbital atherectomy using a 2 mm CSI device was performed. Large amounts of visible thrombus for which manual aspiration thrombectomy was needed. Balloon angioplasty with a 5 mm drug-coated balloon was performed. Excellent end result. Less than 10% residual stenosis in the femoral artery. Single-vessel runoff. Right groin sheath was removed under manual pressure. The patient was discharged home the same day. MD PRABHAKAR Khan/MODL /[id number]
--- NOTE | 2019-12-31 14:45 | NUR ---
1445p Pt meets DC criteria. Skin assessed for s/s of complication and presence of hematoma. Skin warm, dry, no discolor, and pulses present. IV removed from rt hand Distal tip appears intact. VS WNL. Pt denies pain, sob, or need at this time. Family at bedside. Review of discharge paperwork and follow up instructions. verbalized understanding. Pt to wheelchair and transported to front of hospital. Transferred to private vehicle under own strength w/o incident with DC paperwork in hand. -ds/rn
== END | disposition home or self-care (01) ==
LOC: CATH LAB 06:28
PROVIDERS: ATTEND Internal Medicine Interventional Cardiology
DX: I70.213 Atherosclerosis of native arteries of extremities with intermittent claudication, bilateral legs (principal); I10 Essential (primary) hypertension; Z95.820 Peripheral vascular angioplasty status with implants and grafts; Z01.812 Encounter for preprocedural laboratory examination; Z79.02 Long term (current) use of antithrombotics/antiplatelets; Z79.82 Long term (current) use of aspirin; Z87.891 Personal history of nicotine dependence
CPT/HCPCS: 36415; 37186; 37225; 75710; 80053; 85025; C1724; C1769 ×3; C1887; J1644; J2001; J2250; J3010; J7030; Q9967; 36247; 75625; 99152; 99153

== ENCOUNTER → 2020-04-11 | Day surgery (SDC) | payer BC, MEDICARE, OTHER ==
[2020-04-07 16:14] LABS: BASOPHILS % 0.4 % (0.0-1.0); EOSINOPHILS # (AUTO) 0.1 (0.0-0.4); EOSINOPHILS % 0.8 % (0.0-6.0); HEMATOCRIT 22.8 % (38.2-49.6); HEMOGLOBIN 7.4 g/dL (14.0-18.0); LYMPHOCYTES # (AUTO) 0.6 (1.0-3.2); MEAN CORPUSCULAR HEMOGLOBIN 30.1 pg (28-32); MEAN CORPUSCULAR HGB CONC 32.5 g/dL (31-35); MEAN CORPUSCULAR VOLUME 92.7 fL (81-99); MONOCYTES # (AUTO) 0.9 (0.2-0.8); MONOCYTES % 11.6 % (4.4-11.3); NEUTROPHILS % 78.5 % (38.7-80.0); PLATELET COUNT 318 x10e3/uL (140-360); RED BLOOD COUNT 2.46 x10e6/uL (4.3-5.7)
[2020-04-07 16:30] LABS: ANION GAP 16.7 mmol/L (8-16); CALCIUM 9.5 mg/dL (8.4-10.2); CREATININE, SERUM 1.92 mg/dL (0.72-1.25); POTASSIUM 3.7 mmol/L (3.5-5.1)
--- NOTE | 2020-04-07 21:16 | Diagnostic Imaging Report ---
EXAMINATION: CHEST 2 VIEWS INDICATION: ^PRE - OP COMPARISON: None FINDINGS: TUBES and LINES: None. LUNGS: Lungs are well inflated. Redemonstration of mild diffuse coarsening of the pulmonary interstitium particularly in the lower lobes, left greater than right. There is no evidence of pneumonia or pulmonary edema. PLEURA: No pleural effusion or pneumothorax. HEART AND MEDIASTINUM: Cardiac size is moderately enlarged. BONES AND SOFT TISSUES: No acute osseous lesion. Soft tissues are unremarkable. UPPER ABDOMEN: No free air under the diaphragm. IMPRESSION: No acute thoracic abnormality. Findings may reflect mild senescent fibrosis, stable. Signed by: Dr. Sophie Epperson M.D. on 04/07/2020 9:13 PM
[~2020-04-11] MED LIST changes: +ACETAMINOPHEN 1000 MG/100 ML IV ONE; -ALPRAZOLAM 0.5 MG TAB ONE; +BUPIVACAINE HCL 0.5% INJ 30 ML VIAL INJ ONE; +CLINDAMYCIN PHOS 900MG/ 50ML 50 ML IV ONE; +DEXAMETHASONE SOD PHOS INJ 4 MG/ML VIAL ONE; -DIPHENHYDRAMINE HCL 25 MG CAP ONE; +ETOMIDATE 2 MG/ML 10 ML INJ IV ONE; -HEPARIN SOD (PORCINE) 1000 UNIT/ML 30ML ONE; -HEPARIN SOD/SOD CHLORIDE 2,000 ML ONE; +HYDROCORTISONE SOD SUCCINATE 100 MG VIAL ONE; +HYDROMORPHONE 1MG/1ML INJ ONE; -IOPAMIDOL 300MG/ML 100 ML INFUS..BTL IV ONE; -LIDOCAINE HCL 2% LOCAL 20 ML VIAL ONE; +LIDOCAINE HCL 2% LOCAL INJ 5 ML SDV VIAL INJ ONE; -MIDAZOLAM HCL 2 MG/2 ML VIAL ONE; +MORPHINE SULFATE INJ 10 MG/ML ONE; +NEOSTIGMINE 1 MG/ML 10ML VIAL ONE; +ONDANSETRON HCL INJ 2MG/ML 2ML 2 MG/ML VIAL ONE; +PHENYLEPHRINE HCL 1% 10 MG/ML VIAL ONE; +SEVOFLURANE INHAL SOLN 250 ML PEN BTL ONE; -SODIUM CHLORIDE 0.9% 1000ML 1,000 ML ONE; -SODIUM CHLORIDE 0.9% 50ML 50 ML ONE; -VERAPAMIL HCL 2.5 MG/ML 2 ML VIAL ONE
[2020-04-11 10:35] VITALS: BP 102/68
--- NOTE | 2020-04-11 11:38 | Operative Report ---
DATE OF PROCEDURE: 04/11/2020 SURGEON: Get Patricio MD VP SITE: Ed Cruz, certified PA. PREOPERATIVE DIAGNOSIS: Left ankle lateral malleolus fracture. POSTOPERATIVE DIAGNOSIS: Left ankle lateral malleolus fracture. PROCEDURE: Open reduction and internal fixation of left ankle lateral malleolus. INDICATIONS: The patient are a 75-year-old gentleman with a displaced lateral malleolar fracture of his left ankle. There was slight widening of the medial clear space. The findings and options have been discussed with the patient and his family. We have recommended open reduction with internal fixation. The risks and benefits including potential wound complications have been explained. All of their questions have been answered. He states he understands and wishes to proceed. PROCEDURE IN DETAIL: The patient was brought to the operating room and placed under general anesthetic. He received prophylactic antibiotics in the holding area. Per report from Anesthesia, the patient required more narcotics than typical due to his chronic opioid use. His left lower extremity was prepped and draped in a sterile manner. A preoperative time-out was performed. An incision was made over the distal fibula. Acute fracture hematoma was encountered. The wound was irrigated. A lobster claw reduction clamp was used to anatomically reduce the fracture. This had displaced even more since the original x-rays in my clinic. An anatomic reduction was accomplished. A 7-hole one-third semitubular plate was placed over the distal fibula. This was fixed with a combination of cortical and cancellous screws. The distal screws were locking screws. Intraoperative x-rays confirmed anatomic reduction and good positioning of all the hardware. The wound was further irrigated. A 10 mL of 0.5% Marcaine without epinephrine were injected around the incision. The wound was closed with subcuticular Vicryl and nylon stitches. A sterile bandage and a splint were applied. There was no blood loss and all needle and sponge counts were correct. Get Patricio MD DR/RYLEY /[id number]
== END | disposition home or self-care (01) ==
LOC: OR 06:08
PROVIDERS: ATTEND Specialist
DX: S82.62XA Displaced fracture of lateral malleolus of left fibula, initial encounter for closed fracture (principal); M06.9 Rheumatoid arthritis, unspecified; K21.9 Gastro-esophageal reflux disease without esophagitis; K58.9 Irritable bowel syndrome, unspecified; I25.10 Atherosclerotic heart disease of native coronary artery without angina pectoris; D64.9 Anemia, unspecified; I11.0 Hypertensive heart disease with heart failure; I50.9 Heart failure, unspecified; X50.1XXA Overexertion from prolonged static or awkward postures, initial encounter; Y92.007 Garden or yard of unspecified non-institutional (private) residence as the place of occurrence of the external cause; Z88.0 Allergy status to penicillin; Z01.810 Encounter for preprocedural cardiovascular examination; Z01.812 Encounter for preprocedural laboratory examination; Z01.818 Encounter for other preprocedural examination; Z11.59 Encounter for screening for other viral diseases; Z79.02 Long term (current) use of antithrombotics/antiplatelets; Z79.82 Long term (current) use of aspirin; Z95.5 Presence of coronary angioplasty implant and graft; Z87.442 Personal history of urinary calculi; Z87.891 Personal history of nicotine dependence
CPT/HCPCS: 27792; 36415; 71046; 76000; 80048; 85025; 86850; 86900; 87635; 93005; C1713 ×6; J0131; J1100; J1720; J2001; J2270; J2370; J2405; J3010; J1170; J2710

== ENCOUNTER 2020-05-04 14:23 | Inpatient (IN) | payer BC, MEDICARE, OTHER ==
[~2020-05-04] VITALS: Ht 180.3 cm; Wt 86.3 kg
[~2020-05-04 14:23] MED LIST changes: -ACETAMINOPHEN 1000 MG/100 ML IV ONE; -BUPIVACAINE HCL 0.5% INJ 30 ML VIAL INJ ONE; -CLINDAMYCIN PHOS 900MG/ 50ML 50 ML IV ONE; -DEXAMETHASONE SOD PHOS INJ 4 MG/ML VIAL ONE; -ETOMIDATE 2 MG/ML 10 ML INJ IV ONE; -FENTANYL CITRATE/PF 100MCG/2 ML INJ ONE; -HYDROCORTISONE SOD SUCCINATE 100 MG VIAL ONE; -HYDROMORPHONE 1MG/1ML INJ ONE; -LIDOCAINE HCL 2% LOCAL INJ 5 ML SDV VIAL INJ ONE; -MORPHINE SULFATE INJ 10 MG/ML ONE; -NEOSTIGMINE 1 MG/ML 10ML VIAL ONE; -ONDANSETRON HCL INJ 2MG/ML 2ML 2 MG/ML VIAL ONE; -PHENYLEPHRINE HCL 1% 10 MG/ML VIAL ONE; -SEVOFLURANE INHAL SOLN 250 ML PEN BTL ONE
[2020-05-04] MEDS ORDERED: SODIUM CHLORIDE 0.9% 1000ML 1,000 ML IV STA ×3 (15:04→16:43)
[2020-05-04] MEDS ORDERED: CEFEPIME 1GM/NS 0.9% 50 ML 50 ML IV STA (15:04)
[2020-05-04] MEDS ORDERED: KETAMINE HCL INJ 50 MG/ML 10 ML VIAL ONE (15:30)
[2020-05-04] MEDS ORDERED: KETAMINE HCL INJ 50 MG/ML 10 ML VIAL IV ONE ×2 (15:30→15:45)
--- NOTE | 2020-05-04 15:30 | NUR ---
Cardioversion began at 1530, patient given 4 mg of Morphine IV push per MD. patient cardioverted at 1536, v/s at that time p-119, bp-101/67, rr-24, O2-100 on non-rebreather. Present staff Sylvia RN, Joanna RN, Dr. Fabian.
[2020-05-04] MEDS ORDERED: AMIODARONE HCL 150MG 100 ML ONE (15:44)
[2020-05-04] MEDS ORDERED: AMIODARONE HCL 360MG 200 ML IV ONE (15:44)
[2020-05-04] MEDS ORDERED: AMIODARONE HCL 360MG 200 ML IV SCH ×2 (15:45→18:00)
[2020-05-04] MEDS ORDERED: AMIODARONE HCL 150MG 100 ML IV ONE (15:45)
[2020-05-04] MEDS ORDERED: MAGNESIUM SULFATE 2GM/50ML 50 ML IV ONE ×2 (15:52→16:00)
[2020-05-04] MEDS ORDERED: MORPHINE SULFATE 2 MG/ML SYR 1ML ONE (15:56)
[2020-05-04] MEDS ORDERED: VANCOMYCIN 1GM/NS 250 ML 250 ML IV ONE (16:00)
--- NOTE | 2020-05-04 16:01 | Emergency Department Note ---
History of Present Illnes History of Present Illness Chief Complaint: General Medicine Complaints History of Present Illness This is a 75 year old male arrived to the ED with complaints of weakness and generalized malaise. Pt states his blood pressure was low at home, pt only able to give limited history. Historian: Patient Arrival Mode: Car Onset (how long ago): day(s) Severity: mild Progression: worsening Chronicity: new Past Medical/Family History Physician Review I have reviewed the patient's past medical and family history. Any updates have been documented here. Past Medical History Unable to obtain PMH: critical patient Recent Fever: No Clinical Suspicion of Infectio: No New/Unexplained Change in Ment: No Other Medical History: ARTHRITIS Other Surgery: ANGIOPLASTY WITH STENT Social History Smoking Cessation: Unknown if ever smoked Other Last Tetanus: NONE Review of Systems ROS Narrative Unable to obtain ROS: critical patient, other Review of Systems Constitutional: Reports weakness EENTM: Reports no symptoms Cardiovascular: Reports no symptoms Respiratory: Reports no symptoms Gastrointestinal: Reports no symptoms Genitourinary: Reports no symptoms Musculoskeletal: Reports no symptoms Integumentary: Reports no symptoms Neurological: Reports no symptoms Psychological: Reports no symptoms Endocrine: Reports no symptoms Hematological/Lymphatic: Reports no symptoms Review of other systems: All other systems negative Physical Exam Related Data Allergies: Coded Allergies: Penicillins (Verified Allergy, Severe, rash, 09/17/16) Triage Vital Signs Vital Signs Date Time Temp Pulse Resp B/P (MAP) Pulse Ox O2 Delivery O2 Flow Rate FiO2 05/04/20 14:59 97.1 Room Air Vital signs reviewed: Yes Physical Exam CONSTITUTIONAL Constitutional: Present ill appearing HENT HENT: Present normocephalic, Present atraumatic, Present oropharynx clear/moist, Present nose normal HENT L/R: Present left ext ear normal, Present right ext ear normal EYES Eyes: Reports PERRL, Reports conjunctivae normal NECK Neck: Present ROM normal PULMONARY Pulmonary: Present effort normal, Present breath sounds normal CARDIOVASCULAR Cardiovascular: Present regular rhythm, Present heart sounds normal, Present capillary refill normal, Present normal rate GASTROINTESTINAL Abdominal: Present soft, Present nontender, Present bowel sounds normal GENITOURINARY Genitourinary: Present exam deferred SKIN Skin: Present warm, Present dry MUSCULOSKELETAL Musculoskeletal: Present ROM normal NEUROLOGICAL Neurological: Present alert PSYCHOLOGICAL Results Laboratory Lab results reviewed: Yes Imaging Imaging results reviewed: Yes Impressions IMPRESSION: 1. Findings consistent with constipation, fecal impaction and mild sigmoid colitis. Critical Care Time Total Critical Care Time (min): 105 Critical care time exclusive o: separately billable procedures Critcal care necessary due to: cardiac failure, shock Assessment & Plan Medical Decision Making MDM Verbal consent, procedure emergent SIgn out done @ 1540 Synconized electrical cardioversion with 100 Joules done by fernanda Fabian with 4 mg morphine used for pain Pt tolerated well post cardioversion rhythm noted to be wide complex, diffuse TWI Patient then placed on amiodarone drip Patient noted to be in septic shock at 1643 Septic Shock: 1643 1. Source (time: suspected intraabdominal ) 2. SIRS (time: 1631) RR 21 HR 108 3. Organ Dysfunction (time: 1704) Cr 2.25 Interventions: Blood cultures collected Lactic acid collected Broad Spectrum antibiotics Cefepime started 1504 complete 1533 Lactic acid #1: 7.1 (time resulted 1643) Lactic acid #2: 3.8 (time resulted 1808) 30cc/kg IVF bolus given by IBW ( 1504, 1600, 1643) Bedside volume reassessment done with improvement noted Assessment & Plan Final Impression: (1) Ventricular tachycardia (2) Septic shock Depart Disposition: ADMITTED Last Vital Signs Date Time Temp Pulse Resp B/P (MAP) Pulse Ox O2 Delivery O2 Flow Rate FiO2 05/04/20 14:59 97.1 Room Air Home Meds Active Scripts Ascorbic Acid (ASCORBIC ACID) 500 Mg Tablet, 500 MG PO BID for 30 Days Prov:PEDRO COHEN [place] [employer] 12/18/17 Reported Medications Turmeric Root Extract (Turmeric) 538 Mg Capsule, 1 CAP PO DAILY 12/29/19 Multivit-Min/Folic/Vit K/Lycop (Men's Multivitamin Tablet) 1 Each Tablet, 1 TAB PO DAILY 12/29/19 Lisinopril/Hydrochlorothiazide (LISINOPRIL-HCTZ 20-25 MG TAB) 1 Each Tablet, 1 TAB PO DAILY 01/18/19 Furosemide (FUROSEMIDE) 40 Mg Tablet, 40 MG PO Daily, #30 TAB 02/09/18 Atorvastatin Calcium (LIPITOR) 20 Mg Tablet, 20 MG DAILY, #30 TAB 05/27/17 Clopidogrel Bisulfate* (PLAVIX) 75 Mg Tablet, 75 MG PO DAILY, #30 TAB 05/27/17 Aspirin (ASPIR 81) 81 Mg Tablet.dr, 81 MG PO DAILY, #30 05/27/17 Krill Oil (KRILL OIL) 500 Mg Capsule, 500 MG PO DAILY 05/23/17 Cinnamon Bark (CINNAMON) 500 Mg Capsule, 1000 MG PO BID 05/23/17 Omeprazole (OMEPRAZOLE) 40 Mg Capsule.dr, 40 MG PO BID 09/17/16 Prednisone (PREDNISONE) 5 Mg Tablet, 5 MG PO DAILY 09/17/16 Hydroxychloroquine Sulfate (HYDROXYCHLOROQUINE SULFATE) 200 Mg Tablet, 200 MG PO BID 09/17/16 Sulfasalazine (SULFASALAZINE) 500 Mg Tab, 2 TAB PO BID, #30 TAB 09/17/16 Hydrocodone Bit/Acetaminophen (NORCO 5-325 TABLET) 1 Each Tablet, 1 TAB PO TID, TAB 09/17/16 Tamsulosin Hcl* (FLOMAX*) 0.4 Mg Cap, 0.4 MG PO DAILY, #30 CAP 09/17/16 Methscopolamine [place] (METHSCOPOLAMINE BROMIDE) 5 Mg Tablet, 5 MG PO BID 09/17/16 Diltiazem Hcl (DILTIAZEM 24HR ER) 180 Mg Capcr, 300 MG PO DAILY 09/17/16 Medications in the ED Cefepime HCl 50 ml @ 100 mls/hr Q24H STAT IV ; Start 05/04/20 at 15:04; Stop 05/04/20 at 15:33 Vancomycin HCl 250 ml @ 167 mls/hr ONCE ONCE IV ; Start 05/04/20 at 16:00; Stop 05/04/20 at 17:29 Sodium Chloride 1,000 ml @ 0 mls/hr Q0M STAT IV ; Start 05/04/20 at 15:04; Stop 05/04/20 at 15:08; Status DC Sodium Chloride 1,000 ml @ 0 mls/hr Q0M STAT IV ; Start 05/04/20 at 15:04; Stop 05/04/20 at 15:08; Status DC Ketamine HCl ONCE ONCE IV ; Start 05/04/20 at 15:30; Stop 05/04/20 at 15:31; Status TIMI MALONEY, May 04, 2020 16:01
[2020-05-04] MEDS: AMIODARONE 900MG 500 ML IV SCH ×2 (16:15→22:15)
[2020-05-04 16:30] LABS: BASOPHILS # (AUTO) 0.1 (0.0-0.1); BASOPHILS % 0.3 % (0.0-1.0); EOSINOPHILS % 0.1 % (0.0-6.0); HEMATOCRIT 33.9 % (38.2-49.6); HEMOGLOBIN 10.5 g/dL (14.0-18.0); LYMPHOCYTES # (AUTO) 0.7 (1.0-3.2); LYMPHOCYTES % 2.9 % (18.0-39.1); MEAN CORPUSCULAR HEMOGLOBIN 28.6 pg (28-32); MEAN CORPUSCULAR VOLUME 92.4 fL (81-99); MONOCYTES # (AUTO) 1.8 (0.2-0.8); MONOCYTES % 7.5 % (4.4-11.3); NEUTROPHILS # (AUTO) 20.8 (2.1-6.9); NEUTROPHILS % 88.1 % (38.7-80.0); PLATELET COUNT 344 x10e3/uL (140-360); RED BLOOD COUNT 3.67 x10e6/uL (4.3-5.7); RED CELL DISTRIBUTION WIDTH 16.4 % (11.7-14.4)
[2020-05-04] MEDS ORDERED: APIXABAN 5 MG TABLET PO SCH (16:45)
[2020-05-04 16:48] LABS: ALBUMIN 3.8 g/dL (3.5-5.0); ALBUMIN/GLOBULIN RATIO 1.1 (0.8-2.0); ANION GAP 25.5 mmol/L (8-16); CALCIUM 10.2 mg/dL (8.4-10.2); CREATININE, SERUM 2.25 mg/dL (0.72-1.25); POTASSIUM 3.5 mmol/L (3.5-5.1)
[2020-05-04 16:55] LABS: CREATINE KINASE MB 3.3 ng/mL (0-5.0)
[2020-05-04] MEDS ORDERED: MORPHINE SULFATE 2 MG/ML SYR 1ML IV ONE (17:00)
--- NOTE | 2020-05-04 17:15 | NUR ---
Patient handed a urinal in order to obtain sample. Will notify staff via call ayala when he had provided a sample.
--- NOTE | 2020-05-04 18:20 | Diagnostic Imaging Report ---
EXAMINATION: CHEST SINGLE (PORTABLE) INDICATION: Hypotensive COMPARISON: 04/07/20. FINDINGS: TUBES and LINES: None. Linear density projected on the left hemithorax may be overlying patient. LUNGS: The lungs are hypoinflated. Patchy density in the lung bases suggestive of subsegmental atelectasis. PLEURA: No pleural effusion or pneumothorax. HEART AND MEDIASTINUM: Cardiac size is mildly to moderately enlarged. BONES AND SOFT TISSUES: No acute osseous lesion. Soft tissues are unremarkable. UPPER ABDOMEN: No free air under the diaphragm. IMPRESSION: Patchy density in the lung bases suggestive of subsegmental atelectasis. Signed by: Dr. Sophie Epperson M.D. on 05/04/2020 6:17 PM
--- NOTE | 2020-05-04 19:03 | NUR ---
report given to Eron DICK
--- NOTE | 2020-05-04 19:06 | Diagnostic Imaging Report ---
EXAM: CT Abdomen and Pelvis WITHOUT contrast INDICATION: Abdominal pain. No bowel movements for 3 weeks. COMPARISON: None. TECHNIQUE: Abdomen and pelvis were scanned utilizing a multidetector helical scanner from the lung base to the pubic symphysis without administration of IV contrast. Absence of intravenous contrast decreases sensitivity for detection of focal lesions and vascular pathology. Coronal and sagittal reformations were obtained. Routine protocol was performed. IV CONTRAST: None. ORAL CONTRAST: Water RADIATION DOSE: Total DLP: 697.20 mGy*cm Estimated effective dose: (DLP x 0.015 x size factor) mSv COMPLICATIONS: None FINDINGS: LINES and TUBES: None. LOWER THORAX: There is bibasilar atelectasis. HEPATOBILIARY: No focal hepatic lesions. No biliary ductal dilation. GALLBLADDER: No radio-opaque stones or sludge. No wall thickening. SPLEEN: No splenomegaly. PANCREAS: No focal masses or ductal dilatation. Diffuse atrophy ADRENALS: No adrenal nodules KIDNEYS/URETERS: No hydronephrosis. No cystic or solid mass lesions. No stones. GI TRACT: No small bowel dilatation to suggest obstruction. There is a large volume of stool within the rectosigmoid, suggestive of fecal impaction. There is also a large volume of stool within the remainder of the colon which is mildly diffusely dilated. Mild wall thickening of the sigmoid and distal descending colon. The appendix is unremarkable. PELVIC ORGANS/BLADDER: The uterus is absent. LYMPH NODES: No lymphadenopathy. VESSELS: There is severe atherosclerotic disease in the aorta and major arterial branches. Extensive bilateral arterial artery calcifications. PERITONEUM / RETROPERITONEUM: No free air or fluid. BONES: There are degenerative changes in the lumbar spine. Partial fusion of L1-L2. Slight retrolisthesis of L2 in relation to L3 and L2 relation to L4. SOFT TISSUES: Unremarkable. IMPRESSION: 1. Findings consistent with constipation, fecal impaction and mild sigmoid colitis. Signed by: Dr. Sophie Epperson M.D. on 05/04/2020 7:03 PM
[2020-05-04] MEDS ORDERED: CITRATE OF MAGNESIA 300ML BOTTLE PO ONE (19:45)
[2020-05-04] MEDS ORDERED: LACTULOSE SYRUP 20 GM/30 ML UDC PO ONE (19:45)
[2020-05-04] MEDS: ONDANSETRON HCL INJ 2MG/ML 2ML 2 MG/ML VIAL IV PRN (20:40)
[2020-05-04 21:18] LABS: LYMPHOCYTES % (MANUAL) 5 % (19-48); MONOCYTES % (MANUAL) 11 % (3.4-9.0); NEUTROPHILS % (MANUAL) 84 % (40-74)
[2020-05-04 21:19] LABS: ANISOCYTOSIS SLIGHT; HYPOCHROMASIA SLIGHT; RBC MORPHOLOGY COMMENT NORMAL
[2020-05-04 21:20] LABS: PLATELET ESTIMATE ADEQUATE; PLATELET MORPHOLOGY COMMENT NORMAL
[2020-05-04 23:30] VITALS: BP 96/50
[2020-05-05] VITALS (27 sets, daily range): BP systolic 76–131; BP diastolic 52–75
--- NOTE | 2020-05-05 | NUR ---
Received pt from ER, from Dong DICK. Pt arrived in [facility]. Pt complaining of abdominal pain due to constipation but will not take the Mag Citrate that was given to him. Pt educated. Pt still refuses. Last lactic was done at 17:20, still elevated at 3.8 and was not redrawn per sepsis protocol. Critical care consult was put in before arrival to ICU but Dr. Yaritza Hernandez was not notified. I notified Dr. Yaritza Hernandez and updated him on pt's WBCs and that he only received 1 time dose of antibiotics upon arrival to ER. Ordered to start pt on Cefepime q8h and repeat lactic in the morning.
[2020-05-05] MEDS: CEFEPIME 1GM/NS 0.9% 50 ML 50 ML IV SCH ×4 (01:28→21:39)
[2020-05-05 05:10] LABS: BASOPHILS # (AUTO) 0.1 (0.0-0.1); BASOPHILS % 0.2 % (0.0-1.0); EOSINOPHILS % 0.1 % (0.0-6.0); HEMATOCRIT 29.1 % (38.2-49.6); HEMOGLOBIN 9.1 g/dL (14.0-18.0); LYMPHOCYTES # (AUTO) 0.6 (1.0-3.2); LYMPHOCYTES % 2.8 % (18.0-39.1); MEAN CORPUSCULAR HEMOGLOBIN 28.4 pg (28-32); MEAN CORPUSCULAR HGB CONC 31.3 g/dL (31-35); MEAN CORPUSCULAR VOLUME 90.9 fL (81-99); MONOCYTES # (AUTO) 1.4 (0.2-0.8); MONOCYTES % 6.6 % (4.4-11.3); NEUTROPHILS # (AUTO) 19.2 (2.1-6.9); NEUTROPHILS % 89.4 % (38.7-80.0); PLATELET COUNT 262 x10e3/uL (140-360); RED CELL DISTRIBUTION WIDTH 16.7 % (11.7-14.4)
[2020-05-05 05:28] LABS: ALBUMIN 3.1 g/dL (3.5-5.0); ANION GAP 17.4 mmol/L (8-16); CALCIUM 8.4 mg/dL (8.4-10.2); CREATININE, SERUM 2.01 mg/dL (0.72-1.25); POTASSIUM 3.4 mmol/L (3.5-5.1)
[2020-05-05 06:09] LABS: CLARITY,URINE SL CLOUDY (CLEAR); COLOR,URINE YELLOW (YELLOW); LEUKOCYTE ESTERASE ,URINE NEGATIVE (NEGATIVE); NITRITE,URINE NEGATIVE (NEGATIVE); PROTEIN,URINE DIPSTICK 1+ (NEGATIVE)
[2020-05-05 06:10] LABS: BACTERIA,URINE MANY /HPF; BILIRUBIN,URINE NEGATIVE (NEGATIVE); EPITHELIAL CELLS,URINE FEW /LPF; KETONES,URINE NEGATIVE (NEGATIVE); URINE UROBILINOGEN 0.2 mg/dL (0.2 - 1)
[2020-05-05 06:11] LABS: AMORPHOUS SEDIMENT,URINE MANY (FEW)
[2020-05-05] MEDS: ONDANSETRON HCL INJ 2MG/ML 2ML 2 MG/ML VIAL IV PRN (07:50)
--- NOTE | 2020-05-05 07:51 | Diagnostic Imaging Report ---
EXAMINATION: CHEST SINGLE (PORTABLE) INDICATION: ^critical care ^[id number] ^[id number] COMPARISON: 05/04/[address] abdomen pelvis 05/04/2020 FINDINGS: AP view TUBES and LINES: None. LUNGS: Improved lung aeration. Mild to moderate bilateral lower lobe predominant interstitial opacities remain unchanged. PLEURA: No pleural effusion or pneumothorax. HEART AND MEDIASTINUM: The cardiomediastinal silhouette is unremarkable. Persistent mild rightward radiation of the mid trachea which may relate to a tortuous thoracic aorta.. BONES AND SOFT TISSUES: No acute osseous lesion. Soft tissues are unremarkable. UPPER ABDOMEN: No free air under the diaphragm. IMPRESSION: Persistent mild to moderate bilateral viral pneumonia. Signed by: Dr. Mara Orozco M.D. on 05/05/2020 7:48 AM
[2020-05-05] MEDS ORDERED: METOPROLOL TARTRATE INJ 1 MG/ML VIAL IV PRN (08:15)
[2020-05-05] MEDS ORDERED: ACETAMINOPHEN 325 MG TAB PO PRN (08:15)
[2020-05-05] MEDS ORDERED: POTASSIUM CHLORIDE 20 MEQ TAB CR PO SCH (08:30)
[2020-05-05] MEDS: FAMOTIDINE 20 MG/2 ML VIAL IV SCH ×2 (08:46→16:35)
[2020-05-05] MEDS: ENOXAPARIN SOD INJ 40 MG/0.4 ML SYR SC SCH ×2 (09:18→21:39)
[2020-05-05] MEDS ORDERED: HYDROCODONE/APAP 5MG-325MG TAB PO PRN (10:30)
[2020-05-05] MEDS ORDERED: BISACODYL 5 MG TAB EC PO ONE (10:45)
[2020-05-05] MEDS: POLYETHYLENE GLYCOL 3350 17 GM PACK PO SCH ×2 (11:22→16:35)
--- NOTE | 2020-05-05 11:28 | Consultation ---
DATE OF CONSULTATION: Pulmonary Critical Care Consultation. CHIEF COMPLAINT: Confusion, leukocytosis and fever. HISTORY OF PRESENT ILLNESS: The patient is a 75-year-old man. He has a history of prior atherosclerotic disease and has required an atherectomy and angioplasty of the right common femoral artery. He also has a history of coronary artery disease and some diastolic heart failure. He came to the emergency department with increased confusion as well as possible fevers and poor oxygen saturation. He reports some phlegm production. He does not complain of chest pain. PAST SURGICAL HISTORY: 1. Status post atherectomy and angioplasty of the femoral artery. 2. History of very coronary artery disease with PTCA. PAST MEDICAL HISTORY: 1. Coronary artery disease. 2. Hypertension. 3. Chronic renal insufficiency. 4. Benign prostatic hypertrophy. 5. Hypertension. 6. Rheumatoid arthritis. ALLERGIES: THE PATIENT IS ALLERGIC TO PENICILLIN. SOCIAL HISTORY: The patient is not an active drinker. He quit smoking in 1997. FAMILY HISTORY: Family history is noncontributory. REVIEW OF SYSTEMS: There is no history of fevers. He had some confusion. He also had a cough and some phlegm production. He has had tachycardia with a rapid ventricular rate and has required amiodarone. He does not complain of nausea or vomiting. There is no leg edema. PHYSICAL EXAMINATION: VITAL SIGNS: The blood pressure is 114/67, saturation is 99% on nasal cannula. Heart rate is now 106 and is a regular sinus rhythm. HEENT: Shows no facial swelling or erythema. CARDIAC: Reveals a regular rate and rhythm with normal S1 and S2. LUNGS: Auscultation of lungs reveals crackles at the bases. There is no wheezing. ABDOMEN: Soft and nontender. There is no rebound or guarding. EXTREMITIES: Shows no leg edema or calf tenderness. There is no cyanosis or clubbing. SKIN: Shows no rashes. NEUROLOGICAL: Shows no focal abnormalities. LABORATORY DATA: White blood cell count is 21.5 and hemoglobin is 9.1. The platelet count is 262. The BUN to creatinine ratio is 40 to 2.01 and carbon dioxide is 17. The lactic acid was elevated at 7.1, but has decreased to 3.8. Albumin is 3.1. RADIOGRAPHIC DATA: Chest x-ray shows bilateral infiltrates especially in the lower lobes. CT scan of the abdomen and pelvis shows findings consistent with constipation. IMPRESSION: 1. Pneumonia with sepsis, present on admission. 2. Possible COVID-19 infection. 3. Atrial fibrillation with rapid ventricular response. 4. Metabolic encephalopathy. 5. Acute kidney injury. 6. Peripheral vascular disease. 7. Coronary artery disease. PLAN: 1. The patient has received 30 mL/kg of IV fluid. 2. Continue current antibiotics and await ID consultation. 3. Monitor creatinine and electrolytes. 4. Continue amiodarone loading and await further input from Cardiology. 5. Continue nasal cannula. 6. Continue Lovenox. 7. Continue current treatment for rheumatoid arthritis. Keegan Hernandez MD [facility]/MODL /[id number]
[2020-05-05 14:15] LABS: ANION GAP 13.2 mmol/L (8-16); CALCIUM 8.8 mg/dL (8.4-10.2); CREATININE, SERUM 1.72 mg/dL (0.72-1.25); POTASSIUM 4.2 mmol/L (3.5-5.1)
[2020-05-05] MEDS: PANTOPRAZOLE SOD 40 MG TABEC PO SCH (16:35)
[2020-05-05] MEDS: ASCORBIC ACID 500 MG TAB PO SCH (16:35)
[2020-05-05] MEDS: HYDROXYCHLOROQUINE SULFATE 200 MG TAB PO SCH (16:35)
[2020-05-05] MEDS: AMIODARONE HCL 200 MG TAB PO SCH (16:35)
--- NOTE | 2020-05-05 17:19 | NUR ---
HISTORY OF PRESENT ILLNESS: The patient is a 75-year-old man. He has a history of prior atherosclerotic disease and has required an atherectomy and angioplasty of the right common femoral artery. He also has a history of coronary artery disease and some diastolic heart failure. He came to the emergency department with increased confusion as well as possible fevers and poor oxygen saturation. He reports some phlegm production. He does not complain of chest pain. PAST SURGICAL HISTORY: 1. Status post atherectomy and angioplasty of the femoral artery. 2. History of very coronary artery disease with PTCA. PAST MEDICAL HISTORY: 1. Coronary artery disease. 2. Hypertension. 3. Chronic renal insufficiency. 4. Benign prostatic hypertrophy. 5. Hypertension. 6. Rheumatoid arthritis. ALLERGIES: THE PATIENT IS ALLERGIC TO PENICILLIN. SOCIAL HISTORY: The patient is not an active drinker. He quit smoking in 1997. FAMILY HISTORY: Family history is noncontributory. REVIEW OF SYSTEMS: There is no history of fevers. He had some confusion. He also had a cough and some phlegm production. He has had tachycardia with a rapid ventricular rate and has required amiodarone. He does not complain of nausea or vomiting. There is no leg edema. PHYSICAL EXAMINATION: VITAL SIGNS: The blood pressure is 114/67, saturation is 99% on nasal cannula. Heart rate is now 106 and is a regular sinus rhythm. HEENT: Shows no facial swelling or erythema. CARDIAC: Reveals a regular rate and rhythm with normal S1 and S2. LUNGS: Auscultation of lungs reveals crackles at the bases. There is no wheezing. ABDOMEN: Soft and nontender. There is no rebound or guarding. EXTREMITIES: Shows no leg edema or calf tenderness. There is no cyanosis or clubbing. SKIN: Shows no rashes. NEUROLOGICAL: Shows no focal abnormalities. LABORATORY DATA: White blood cell count is 21.5 and hemoglobin is 9.1. The platelet count is 262. The BUN to creatinine ratio is 40 to 2.01 and carbon dioxide is 17. The lactic acid was elevated at 7.1, but has decreased to 3.8. Albumin is 3.1. RADIOGRAPHIC DATA: Chest x-ray shows bilateral infiltrates especially in the lower lobes. CT scan of the abdomen and pelvis shows findings consistent with constipation. [id number]
[2020-05-05] MEDS: METOPROLOL TARTRATE INJ 1 MG/ML VIAL IV PRN (18:49)
--- NOTE | 2020-05-05 20:11 | History and Physical ---
SUBJECTIVE: Mr. Boo is a 75-year-old gentleman who comes in because he has been sick for 2 weeks with constipation, not feeling well. The patient has history of coronary disease, peripheral vascular disease, hypertension, chronic kidney disease, benign prostatic hypertrophy, rheumatoid arthritis, and hypertension, comes in because he is not feeling well, came to the emergency room, he was hypoxemic. The patient was admitted. LABORATORY DATA: His blood cultures are negative so far. His white count when he first came was 23, hemoglobin 10, and hematocrit 37. His COVID-19 is still pending. The patient had a chest x-ray which showed persistent bilateral pneumonia. He had a CT scan of abdomen and pelvis, which showed constipation. MEDICATIONS: The patient was currently on Cordarone, Protonix, Plaquenil, hydroxychloroquine, Pepcid, cefepime, Lovenox, Zofran, vitamin C, and Flomax. The patient is currently lying in bed. He is resting. He is not feeling well in general. PHYSICAL EXAMINATION: GENERAL: He is currently alert, oriented, does not seem to be in acute distress. VITAL SIGNS: Stable, currently afebrile. HEENT: He is not icteric. NECK: Supple. CHEST: Clear. HEART: S1, S2. ABDOMEN: Soft. IMPRESSION: Constipation. Abnormal chest x-ray, could be viral pneumonia, possibility of coronavirus disease-19. We will put him on Rocephin and azithromycin. Continue his anti-rheumatoid arthritis medication as ordered. Continue with supportive care. We will put him on Rocephin and azithromycin in the meantime. Await blood cultures and urine cultures. Continue with droplet isolation. Recheck CBC. Recheck Chem panel. Coronavirus disease-19 is still pending. Due to renal failure, he is not a candidate for remdesivir if it is positive. Discussed with the patient. Discussed with the medical team. We will follow. MD FRANCIE Francisco/RYLEY /[id number]
[2020-05-06] VITALS (25 sets, daily range): BP systolic 73–121; BP diastolic 51–79
--- NOTE | 2020-05-06 04:42 | Consultation ---
DATE OF CONSULTATION: 05/05/2020 Cardiology Consultation REQUESTING PHYSICIAN: Dwayne Ellington MD REASON FOR CONSULTATION: Tachycardia. HISTORY OF PRESENT ILLNESS: This is a 75-year-old man with history of peripheral artery disease, moderate coronary artery disease, chronic diastolic heart failure, bifascicular block on EKG, and hypertension, who presented to the ER with complaints of weakness and malaise. He was found to be in a wide-complex tachycardia with blood pressure with hypotension and was emergently cardioverted in the ER with synchronized 200- joule shock. Evaluation in the ER revealed leukocytosis with WBC 23.58 as well as acute kidney injury with creatinine of 2.25 and elevated lactate of 7.1. The patient was therefore admitted for further evaluation. Cardiology is consulted for the patient's arrhythmia. The did not report any chest pain, however, some confusion as well as subjective fever and hypoxia were reported. REVIEW OF SYSTEMS: Negative as per HPI. PAST MEDICAL HISTORY: 1. Moderate coronary artery disease. 2. Peripheral arterial disease. 3. Hypertension. 4. Rheumatoid arthritis. ALLERGIES: PENICILLIN. MEDICATIONS: Please see medication list. SOCIAL HISTORY: Former smoker, quit in 1997. No alcohol or drugs. FAMILY HISTORY: Noncontributory to current illness. PHYSICAL EXAMINATION: VITAL SIGNS: Temperature 98.6 degrees, pulse 105, respiratory rate 16, blood pressure 110/59, oxygen saturation 98% on 4 L nasal cannula. The patient was not examined due to isolation for COVID-19 PUI. LABORATORY DATA: WBC 21.5, hemoglobin 9.1, hematocrit 29.1, platelets 262. Sodium 132, potassium 4.2, chloride 102, CO2 of 21, BUN 30, creatinine 1.72. COVID-19 PCR is pending. TELEMETRY: Personally reviewed and interpreted, revealed sinus tachycardia. IMPRESSION: 1. Pneumonia. 2. Sepsis secondary to above. 3. Wide-complex tachycardia status post cardioversion. 4. Acute kidney injury. 5. Peripheral arterial disease and coronary artery disease. RECOMMENDATIONS: Monitor the patient closely on telemetry. Complete amiodarone protocol and start amiodarone 400 mg p.o. b.i.d. Monitor the patient closely on telemetry. Continue his home cardiac medications presently, his aspirin, atorvastatin, and clopidogrel. The patient's blood pressure is controlled. Hold his home antihypertensive medications for now. Monitor volume status closely. Continue supportive care. Antibiotics per Infectious Disease. Trend troponin. Thank you for this consult. We will continue to follow. MD COLT Cevallos/MODL /[id number]
[2020-05-06 05:43] LABS: BASOPHILS # (AUTO) 0.1 (0.0-0.1); BASOPHILS % 0.4 % (0.0-1.0); EOSINOPHILS # (AUTO) 0.1 (0.0-0.4); EOSINOPHILS % 0.6 % (0.0-6.0); HEMATOCRIT 25.4 % (38.2-49.6); HEMOGLOBIN 8.3 g/dL (14.0-18.0); LYMPHOCYTES # (AUTO) 0.9 (1.0-3.2); LYMPHOCYTES % 4.9 % (18.0-39.1); MEAN CORPUSCULAR HEMOGLOBIN 28.9 pg (28-32); MEAN CORPUSCULAR HGB CONC 32.7 g/dL (31-35); MEAN CORPUSCULAR VOLUME 88.5 fL (81-99); MONOCYTES # (AUTO) 1.6 (0.2-0.8); MONOCYTES % 8.9 % (4.4-11.3); NEUTROPHILS % 82.9 % (38.7-80.0); PLATELET COUNT 218 x10e3/uL (140-360); RED BLOOD COUNT 2.87 x10e6/uL (4.3-5.7); RED CELL DISTRIBUTION WIDTH 16.7 % (11.7-14.4)
[2020-05-06] MEDS: CEFEPIME 1GM/NS 0.9% 50 ML 50 ML IV SCH (06:00)
[2020-05-06 06:18] LABS: ALBUMIN 2.6 g/dL (3.5-5.0); ALBUMIN/GLOBULIN RATIO 0.8 (0.8-2.0); ANION GAP 18.5 mmol/L (8-16); CALCIUM 8.4 mg/dL (8.4-10.2); CREATININE, SERUM 1.94 mg/dL (0.72-1.25); POTASSIUM 3.5 mmol/L (3.5-5.1)
[2020-05-06 06:19] LABS: CHOL/HDL RATIO 2.8 (3.9-4.7)
--- NOTE | 2020-05-06 07:06 | Diagnostic Imaging Report ---
EXAMINATION: CHEST SINGLE (PORTABLE) INDICATION: ^viral pneumonia COMPARISON: 05/05/2020 FINDINGS: AP view TUBES and LINES: None. LUNGS: Unchanged lower lobe predominant interstitial opacities. PLEURA: No pleural effusion or pneumothorax. HEART AND MEDIASTINUM: Stable heart size. Unchanged rightward deviation of the trachea. BONES AND SOFT TISSUES: No acute osseous lesion. Soft tissues are unremarkable. UPPER ABDOMEN: No free air under the diaphragm. IMPRESSION: Stable pulmonary airspace disease consistent with known viral pneumonia. Signed by: Otto Gong MD on 05/06/2020 7:03 AM
--- NOTE | 2020-05-06 08:15 | NUR ---
PT BP 74/52 PT IS ASYMPTOMATIC AT THIS TIME SPOKE TO RECEIVED ORDER FOR BOLUS WILL MONITOR CLOSELY
[2020-05-06] MEDS ORDERED: SODIUM CHLORIDE 0.9% 500ML 500 ML IV ONE (08:30)
[2020-05-06] MEDS ORDERED: SODIUM CHLORIDE 0.9% 500ML 500 ML ONE (08:30)
[2020-05-06] MEDS: HYDROXYCHLOROQUINE SULFATE 200 MG TAB PO SCH ×2 (08:33→18:58)
[2020-05-06] MEDS: TAMSULOSIN HCL 0.4 MG CAP PO SCH (08:33)
[2020-05-06] MEDS: ATORVASTATIN 20 MG TAB PO SCH (08:33)
[2020-05-06] MEDS: ASPIRIN 81 MG CHEW TAB PO SCH (08:33)
[2020-05-06] MEDS: CLOPIDOGREL BISULFATE 75 MG TAB PO SCH (08:33)
[2020-05-06] MEDS: AMIODARONE HCL 200 MG TAB PO SCH ×2 (08:33→18:58)
[2020-05-06] MEDS: ASCORBIC ACID 500 MG TAB PO SCH ×2 (08:33→18:58)
[2020-05-06] MEDS: POLYETHYLENE GLYCOL 3350 17 GM PACK PO SCH ×2 (08:33→18:58)
[2020-05-06] MEDS: PANTOPRAZOLE SOD 40 MG TABEC PO SCH ×2 (08:33→18:58)
[2020-05-06] MEDS: ENOXAPARIN SOD INJ 40 MG/0.4 ML SYR SC SCH ×2 (08:33→20:53)
[2020-05-06] MEDS: FAMOTIDINE 20 MG/2 ML VIAL IV SCH ×2 (08:33→18:58)
[2020-05-06] MEDS ORDERED: BISACODYL 10 MG SUPP PR ONE ×2 (10:00→18:30)
[2020-05-06] MEDS: CEFTRIAXONE SOD 1 GM/NS 50 ML 50 ML IV SCH (10:23)
[2020-05-06] MEDS: D5NS/KCL 20MEQ 1,000 ML IV SCH (11:15)
[2020-05-06] MEDS: AZITHROMYCIN 500MG/NS 250 ML 250 ML IV SCH (11:56)
[2020-05-06] MEDS ORDERED: SODIUM CHLORIDE 0.9% 250ML 250 ML IV ONE (12:45)
[2020-05-06] MEDS: ONDANSETRON HCL INJ 2MG/ML 2ML 2 MG/ML VIAL IV PRN ×3 (13:04→19:59)
[2020-05-06] MEDS ORDERED: LACTATED RINGER'S 1,000 ML ONE (14:37)
[2020-05-06] MEDS ORDERED: VANCOMYCIN 1GM/NS 250 ML 250 ML IV ONE (15:30)
--- NOTE | 2020-05-06 16:19 | Operative Report ---
DATE OF PROCEDURE: SURGEON: Keegan Hernandez MD PROCEDURE: Central line placement under ultrasound guidance. PREOPERATIVE DIAGNOSIS: Acute kidney injury. POSTOPERATIVE DIAGNOSIS: Acute kidney injury. CONSENT: Consent was obtained from the patient. MEDICATIONS: 1% lidocaine for local anesthesia. DESCRIPTION OF PROCEDURE: The patient was placed in supine position. He was prepped sterilely with Betadine and chlorhexidine. A full length sterile drape was used along with sterile gloves and sterile gown. An ultrasound machine was used to locate the right internal jugular vein. The area was anesthetized with lidocaine. The right internal jugular vein was cannulated under direct visualization with a 16-gauge needle. A wire was passed through the needle and a triple-lumen catheter. A dilator was used to open the skin. A triple-lumen catheter was then placed over the wire by the Seldinger technique. All the ports flushed. COMPLICATIONS: None. ESTIMATED BLOOD LOSS: None. Keegan Hernandez MD [facility]/MODL /[id number]
--- NOTE | 2020-05-06 16:49 | Progress Note ---
DATE: SUBJECTIVE: The patient is having more problems with low blood pressure. He required his fluid boluses of over a L. He remains on a nasal cannula. He is not having fevers. He does not complain of cough or chest pain. PHYSICAL EXAMINATION: VITAL SIGNS: The blood pressure is now 103/66 and the heart rate is 111. Saturation is 100%. HEENT: Shows no facial swelling or erythema. CARDIAC: Reveals regular rate and rhythm with normal S1 and S2. LUNGS: Auscultation of lungs reveals rhonchorous breath sounds bilaterally. There is no wheezing. ABDOMEN: Soft and nontender. There is no rebound or guarding. EXTREMITIES: Shows no leg edema or calf tenderness. There is no cyanosis or clubbing. SKIN: Shows no rashes. NEUROLOGICAL: Shows no focal abnormalities. LABORATORY DATA: White blood cell count is 18, and the hemoglobin is 8.3. The platelet count is 250. BUN to creatinine ratio is 44 to 1.94. The sodium is 129. Albumin is 2.6. RADIOGRAPHIC DATA: Chest x-ray shows interstitial infiltrates bilaterally. IMPRESSION: 1. Pneumonia with severe sepsis, present on admission. 2. Rheumatoid arthritis. 3. Possible COVID-19 infection. 4. Acute kidney injury. 5. Benign prostatic hypertrophy. 6. Atrial fibrillation. 7. Coronary artery disease. PLAN: 1. Continue to give fluid as needed. The patient may also require Levophed. 2. Continue current antibiotics. 3. Await COVID-19 testing. 4. Continue Lovenox. 5. Continue current treatment for rheumatoid arthritis. 6. Case discussed with the patient, nursing, Infectious Disease and Internal Medicine. Critical care time greater than 35 minutes apart from any procedures performed. Keegan Hernandez MD [facility]/CRESENCIOL /[id number]
--- NOTE | 2020-05-06 16:57 | Diagnostic Imaging Report ---
EXAMINATION: CHEST SINGLE (PORTABLE) INDICATION: ^line placement ^[id number] ^[id number] COMPARISON: 05/06/2020 5:27 AM FINDINGS: AP view TUBES and LINES: Interval placement of a right-sided central venous catheter with tip overlying the lower SVC. LUNGS: Lungs are well inflated. Unchanged bilateral reticular opacities. No new consolidations. PLEURA: No pleural effusion or pneumothorax. HEART AND MEDIASTINUM: Prominent cardiac silhouette, unchanged. BONES AND SOFT TISSUES: No acute osseous lesion. Soft tissues are unremarkable. UPPER ABDOMEN: No free air under the diaphragm. Moderate distention of the stomach. IMPRESSION: New right IJ central venous catheter with tip overlying the lower SVC. No pneumothorax. Unchanged bilateral reticular consolidation consistent with viral pneumonia. Signed by: Dr. Mara Orozco M.D. on 05/06/2020 4:54 PM
[2020-05-07] VITALS (19 sets, daily range): BP systolic 12–134; BP diastolic 56–91
--- NOTE | 2020-05-07 02:15 | Progress Note ---
DATE: 05/06/2020 Cardiology Progress Note SUBJECTIVE: The patient was discussed with nursing staff. No chest pain or shortness of breath reported. However, the patient did develop hypotension earlier this morning, requiring bolus sodium chloride. OBJECTIVE: VITAL SIGNS: Temperature 98.4 degrees, pulse 104, respiratory rate 18, blood pressure 93/62, oxygen saturation 99% on 4 L nasal cannula. The patient was not examined due to COVID-19 PUI. CARDIAC MEDICATIONS: Amiodarone 40 mg p.o. b.i.d., Plavix 75 mg p.o. daily, atorvastatin 20 mg p.o. daily, aspirin 81 mg p.o. daily. TELEMETRY: Personally reviewed and interpreted revealing sinus tachycardia. IMPRESSION: 1. Pneumonia. 2. Sepsis secondary to above. 3. Wide-complex tachycardia status post cardioversion. 4. Acute kidney injury. 5. Peripheral arterial disease. 6. Coronary artery disease. RECOMMENDATIONS: Continue supportive care. The patient has recurrent hypotension. He may require initiation of pressor support. Monitor blood pressure closely. Continue to monitor the patient on telemetry. Continue amiodarone. Keep potassium above 4 and magnesium above 2. Continue current cardiac medications. Blood culture findings are noted. Antibiotics per Infectious Disease. Thank you for this consult. We will continue to follow. Beverly Moreno MD [facility]/MODL /[id number] MTDD
--- NOTE | 2020-05-07 05:51 | Diagnostic Imaging Report ---
EXAMINATION: CHEST SINGLE (PORTABLE) INDICATION: ^pneumonia COMPARISON: 05/06/2020 FINDINGS: AP view TUBES and LINES: Unchanged right IJ central line. LUNGS: Unchanged lower lobe predominant airspace opacities. PLEURA: No pleural effusion or pneumothorax. HEART AND MEDIASTINUM: The cardiomediastinal silhouette is unremarkable. BONES AND SOFT TISSUES: No acute osseous lesion. Soft tissues are unremarkable. UPPER ABDOMEN: No free air under the diaphragm. IMPRESSION: No interval change. Stable pulmonary findings consistent with known viral pneumonia. Signed by: Otto Gong MD on 05/07/2020 5:48 AM
[2020-05-07 05:55] LABS: BASOPHILS # (AUTO) 0.1 (0.0-0.1); BASOPHILS % 0.4 % (0.0-1.0); EOSINOPHILS # (AUTO) 0.2 (0.0-0.4); EOSINOPHILS % 1.5 % (0.0-6.0); HEMATOCRIT 25.9 % (38.2-49.6); HEMOGLOBIN 8.2 g/dL (14.0-18.0); LYMPHOCYTES # (AUTO) 0.6 (1.0-3.2); LYMPHOCYTES % 4.7 % (18.0-39.1); MEAN CORPUSCULAR HEMOGLOBIN 29.2 pg (28-32); MEAN CORPUSCULAR HGB CONC 31.7 g/dL (31-35); MEAN CORPUSCULAR VOLUME 92.2 fL (81-99); MONOCYTES # (AUTO) 1.2 (0.2-0.8); MONOCYTES % 9.4 % (4.4-11.3); NEUTROPHILS # (AUTO) 10.3 (2.1-6.9); NEUTROPHILS % 83.1 % (38.7-80.0); PLATELET COUNT 227 x10e3/uL (140-360); RED BLOOD COUNT 2.81 x10e6/uL (4.3-5.7); RED CELL DISTRIBUTION WIDTH 16.8 % (11.7-14.4)
[2020-05-07 06:18] LABS: ALBUMIN 2.4 g/dL (3.5-5.0); ALBUMIN/GLOBULIN RATIO 0.7 (0.8-2.0); ANION GAP 16.4 mmol/L (8-16); CALCIUM 8.6 mg/dL (8.4-10.2); CREATININE, SERUM 1.74 mg/dL (0.72-1.25); POTASSIUM 3.4 mmol/L (3.5-5.1)
[2020-05-07] MEDS: D5NS/KCL 20MEQ 1,000 ML IV SCH (08:48)
[2020-05-07] MEDS: ONDANSETRON HCL INJ 2MG/ML 2ML 2 MG/ML VIAL IV PRN (08:48)
--- NOTE | 2020-05-07 09:15 | NUR ---
PT CONTINUES TO C/O NAUSEA DENIES NGT AT THIS TIME STATES" THAT DOES NOT SOUND PLEASANT" THIS RN INFORMED OF BENEFITS OF NGT, PT STILL DENIES. PT CONTINUES TO REFUSE SOME MEDICATIONS INCLUDING MAG CITRATE.
[2020-05-07] MEDS: AMIODARONE HCL 200 MG TAB PO SCH ×2 (09:29→17:28)
[2020-05-07] MEDS: PANTOPRAZOLE SOD 40 MG TABEC PO SCH ×2 (09:29→17:28)
[2020-05-07] MEDS: FAMOTIDINE 20 MG/2 ML VIAL IV SCH ×2 (09:29→17:28)
[2020-05-07] MEDS: ENOXAPARIN SOD INJ 40 MG/0.4 ML SYR SC SCH ×2 (09:30→21:16)
[2020-05-07] MEDS: POLYETHYLENE GLYCOL 3350 17 GM PACK PO SCH ×2 (09:30→17:28)
[2020-05-07] MEDS: ASCORBIC ACID 500 MG TAB PO SCH ×2 (10:47→16:38)
[2020-05-07] MEDS: ZINC SULFATE 220 MG CAP PO SCH (10:47)
[2020-05-07] MEDS: CEFTRIAXONE SOD 1 GM/NS 50 ML 50 ML IV SCH (10:47)
[2020-05-07] MEDS: AZITHROMYCIN 500MG/NS 250 ML 250 ML IV SCH (11:58)
[2020-05-07] MEDS: CLOPIDOGREL BISULFATE 75 MG TAB PO SCH (12:14)
[2020-05-07] MEDS: ASPIRIN 81 MG CHEW TAB PO SCH (12:14)
[2020-05-07] MEDS: TAMSULOSIN HCL 0.4 MG CAP PO SCH (12:14)
[2020-05-07] MEDS: ATORVASTATIN 20 MG TAB PO SCH (12:15)
[2020-05-07] MEDS: HYDROXYCHLOROQUINE SULFATE 200 MG TAB PO SCH ×2 (12:15→16:38)
[2020-05-07] MEDS: METOPROLOL TARTRATE INJ 1 MG/ML VIAL IV PRN (13:28)
[2020-05-07] MEDS ORDERED: BISACODYL 10 MG SUPP PR ONE (16:30)
--- NOTE | 2020-05-07 16:48 | NUR ---
PT TAKEN FOR CT AT THIS TIME
--- NOTE | 2020-05-07 17:54 | Diagnostic Imaging Report ---
EXAMINATION: CT of the abdomen and pelvis without contrast. TECHNIQUE: Spiral CT images of the abdomen and pelvis were performed from the lung bases to the lesser trochanters. No intravenous contrast was given per renal stone protocol. Coronal and sagittal reformatted images were obtained. COMPARISON: CT abdomen and pelvis without contrast 05/04/2020 CLINICAL HISTORY:Septic shock, nausea and vomiting for 2 days DISCUSSION: ABSENCE OF INTRAVENOUS CONTRAST DECREASES SENSITIVITY FOR DETECTION OF FOCAL LESIONS AND VASCULAR PATHOLOGY. ABDOMEN/PELVIS: LOWER THORAX: Bilateral basal atelectatic changes, stable . HEPATOBILIARY: No focal hepatic lesions. No intra or extrahepatic biliary ductal dilation. GALLBLADDER: Gallbladder is hydropic. No radiopaque calculi are noted. No wall thickening. SPLEEN: No splenomegaly. PANCREAS: No focal masses or ductal dilatation. Marked pancreatic atrophy. ADRENALS: No adrenal nodules. KIDNEYS/URETERS: Normal renal or ureteral calculi, hydronephrosis or obstruction. No contour abnormalities. Extensive renal vascular calcifications. Mild bilateral perinephric stranding, able since prior exam PELVIC ORGANS/BLADDER: Bladder is decompressed and there is a Gillette catheter in place. PERITONEUM/RETROPERITONEUM: Interval development of small perihepatic ascites (series 2, image 8) LYMPH NODES: No intra-abdominal,retroperitoneal, pelvic or inguinal lymphadenopathy. VESSELS: Moderate to marked atherosclerotic calcification of the abdominal aorta, predominantly infrarenal portion and the iliac vessels GI TRACT: Large volume of stool is again noted in the colon, worse in the mid and distal sigmoid colon and rectum, with interval development of mild distal sigmoid and rectal dilation and mild wall thickening, which extends proximally to the distal sigmoid. Interval development of multiple mildly dilated loops of small bowel in the central abdomen predominantly involving the jejunum, proximal and mid ileum, with maximal measurement of 3.6 cm. Appendix is identified and normal in caliber. Moderate dilation of the stomach. BONES AND SOFT TISSUES: Generalized osteopenia limits evaluation of the bony structures. No aggressive lytic or suspicious focal sclerotic lesions. Multilevel degenerated discs in the lumbosacral spine, worse at L5-S1. Stable grade 1 anterolisthesis of L4 on L5. Soft tissues are grossly unremarkable. IMPRESSION: 1. Findings highly suspicious for fecal impaction, with interval development of mild wall thickening, which may reflect stercoral colitis. 2. Multiple mildly dilated loops of jejunum, proximal and mid ileum, without a definite transition point, suggestive of ileus. 3. Interval development of small perihepatic ascites. 4. Hydropic gallbladder. No radiopaque calculi are identified. No intra or extrahepatic biliary ductal dilation. Signed by: Dr. John Ma M.D. on 05/07/2020 5:51 PM
--- NOTE | 2020-05-07 18:13 | Progress Note ---
DATE: Pulmonary Critical Care Progress Note SUBJECTIVE: The patient is hemodynamically stable. He is not requiring any Levophed. He did have some tachycardia early this morning that required some metoprolol. He has no fevers. PHYSICAL EXAMINATION: VITAL SIGNS: The patient is afebrile. The blood pressure is 120/80, saturation is 98%. HEENT: Shows no facial swelling or erythema. CARDIAC: Reveals regular rate and rhythm with normal S1 and S2. LUNGS: Auscultation of lungs reveals crackles at the bases. There is no wheezing. ABDOMEN: Soft, nontender. There is no rebound or guarding. EXTREMITIES: Shows no leg edema or calf tenderness. There is no cyanosis or clubbing. SKIN: Shows no rashes. NEUROLOGICAL: Shows no focal abnormalities. LABORATORY DATA: White blood cell count is 12.3 and hemoglobin is 8.2. The platelet count is 227. The BUN to creatinine ratio is 47 to 1.74 and the other electrolytes within normal limits. The albumin is 2.4. RADIOGRAPHIC DATA: Chest x-ray shows some lower lobe infiltrates. IMPRESSION: 1. Pneumonia with severe sepsis, present on admission. 2. Rheumatoid arthritis. 3. Possible coronavirus disease-19 infection. 4. Acute kidney injury. 5. Atrial fibrillation. 6. Coronary artery disease. PLAN: 1. Continue current antibiotics. 2. Continue current cardiac regimen. 3. Monitor renal function. 4. Transfer out of intensive care unit. Keegan Hernandez MD [facility]/CRESENCIOL /[id number]
--- NOTE | 2020-05-07 18:13 | Progress Note ---
DATE: 05/07/2020 Cardiology Progress Note SUBJECTIVE: The patient denies chest pain or shortness of breath. His main complaint is abdominal discomfort and constipation. OBJECTIVE: VITAL SIGNS: Temperature 98.4 degrees, pulse 114, respiratory rate of 25, blood pressure 120/80, and oxygen saturation 98% on room air. GENERAL: Awake, alert, elderly man, mildly uncomfortable appearing. LUNGS: Clear to auscultation bilaterally. No wheezes or crackles. CARDIOVASCULAR: Tachycardic, irregular, no murmur. Normal S1, S2. ABDOMEN: Soft, distended. EXTREMITIES: No edema. CARDIAC MEDICATIONS: Atorvastatin 20 mg p.o. daily, Plavix 75 mg p.o. daily, aspirin 81 mg p.o. daily, amiodarone 400 mg p.o. b.i.d., enoxaparin 40 mg subcu q.12 hours. LABORATORY DATA: WBC 12.36, hemoglobin 8.2, hematocrit 25.9, and platelets 227. Sodium 132, potassium 3.4, chloride 102, CO2 of 18, BUN 47, and creatinine 1.74. Chest x-ray; no interval changes, stable, pulmonary findings consistent with known viral pneumonia. TELEMETRY: Personally reviewed and interpreted revealing sinus rhythm with what appears to be frequent PACs. IMPRESSION: 1. Pneumonia. 2. Sepsis, secondary to above. 3. Coagulase-negative Staphylococcus bacteremia. 4. White complex tachycardia, status post cardioversion. 5. Acute kidney injury. 6. Peripheral arterial disease. 7. Coronary artery disease. RECOMMENDATIONS: Continue supportive care. Antibiotics per Infectious Disease. Blood pressure has improved. We will monitor closely. Continue to monitor the patient on telemetry. Continue amiodarone. Maintain potassium above 4 and magnesium above 2. Continue current cardiac medications. Management of constipation per GI. Thank you for this consult. We will continue to follow. Beverly Moreno MD [facility]/MODL /[id number]
[2020-05-07] MEDS ORDERED: BISACODYL 5 MG TAB EC PO ONE (21:15)
[2020-05-07] MEDS ORDERED: SOD PHOSPHATE/SOD BIPHOSPHATE ENEMA 132 ML BTL PR ONE (21:15)
[2020-05-07] MEDS ORDERED: METOCLOPRAMIDE HCL 10 MG/2ML VIAL IV ONE (21:30)
[2020-05-08] VITALS (8 sets, daily range): BP systolic 91–126; BP diastolic 56–77
[2020-05-08] MEDS ORDERED: METOCLOPRAMIDE HCL 10 MG/2ML VIAL IV SCH
[2020-05-08] MEDS ORDERED: METOCLOPRAMIDE HCL 10 MG/2ML VIAL IV PRN (05:00)
[2020-05-08] MEDS: D5NS/KCL 20MEQ 1,000 ML IV SCH ×2 (06:18→09:41)
[2020-05-08 06:44] LABS: ALBUMIN 2.3 g/dL (3.5-5.0); ALBUMIN/GLOBULIN RATIO 0.7 (0.8-2.0); ANION GAP 14.2 mmol/L (8-16); CALCIUM 8.4 mg/dL (8.4-10.2); CREATININE, SERUM 1.34 mg/dL (0.72-1.25); POTASSIUM 3.2 mmol/L (3.5-5.1)
[2020-05-08 06:57] LABS: BASOPHILS % 0.3 % (0.0-1.0); EOSINOPHILS # (AUTO) 0.4 (0.0-0.4); EOSINOPHILS % 3.4 % (0.0-6.0); LYMPHOCYTES # (AUTO) 0.9 (1.0-3.2); LYMPHOCYTES % 7.4 % (18.0-39.1); MEAN CORPUSCULAR HEMOGLOBIN 28.4 pg (28-32); MEAN CORPUSCULAR HGB CONC 30.5 g/dL (31-35); MONOCYTES # (AUTO) 1.4 (0.2-0.8); MONOCYTES % 11.2 % (4.4-11.3); NEUTROPHILS # (AUTO) 9.4 (2.1-6.9); NEUTROPHILS % 75.2 % (38.7-80.0); PLATELET COUNT 269 x10e3/uL (140-360); RED BLOOD COUNT 2.01 x10e6/uL (4.3-5.7); RED CELL DISTRIBUTION WIDTH 16.8 % (11.7-14.4)
--- NOTE | 2020-05-08 07:00 | NUR ---
BEDSIDE SHIFT REPORT RECEIVED FROM RN RONAL. PT DENIES NEEDS AT THIS TIME.
[2020-05-08 07:05] LABS: HEMATOCRIT 18.7 % (38.2-49.6); HEMOGLOBIN 5.7 g/dL (14.0-18.0)
[2020-05-08] MEDS ORDERED: SODIUM CHLORIDE 0.9% 250ML 250 ML IV ONE (07:15)
--- NOTE | 2020-05-08 08:45 | NUR ---
SPOKE TO PEDRO, GIVE PLAVIX,ASA AND LOVENOX
[2020-05-08] MEDS: PANTOPRAZOLE SOD 40 MG TABEC PO SCH ×2 (08:51→17:12)
[2020-05-08] MEDS: ATORVASTATIN 20 MG TAB PO SCH (08:52)
[2020-05-08] MEDS: TAMSULOSIN HCL 0.4 MG CAP PO SCH (08:52)
[2020-05-08] MEDS: POLYETHYLENE GLYCOL 3350 17 GM PACK PO SCH ×2 (08:52→17:12)
[2020-05-08] MEDS: HYDROXYCHLOROQUINE SULFATE 200 MG TAB PO SCH ×2 (08:52→17:12)
[2020-05-08] MEDS: ASPIRIN 81 MG CHEW TAB PO SCH (08:52)
[2020-05-08] MEDS: ZINC SULFATE 220 MG CAP PO SCH (08:52)
[2020-05-08] MEDS: AZITHROMYCIN 500MG/NS 250 ML 250 ML IV SCH (08:52)
[2020-05-08] MEDS: FAMOTIDINE 20 MG/2 ML VIAL IV SCH ×2 (08:52→17:12)
[2020-05-08] MEDS: AMIODARONE HCL 200 MG TAB PO SCH ×2 (08:52→17:12)
[2020-05-08] MEDS: CEFTRIAXONE SOD 1 GM/NS 50 ML 50 ML IV SCH (08:52)
[2020-05-08] MEDS: CLOPIDOGREL BISULFATE 75 MG TAB PO SCH (08:57)
[2020-05-08] MEDS: ASCORBIC ACID 500 MG TAB PO SCH ×2 (08:58→17:12)
[2020-05-08] MEDS: ENOXAPARIN SOD INJ 40 MG/0.4 ML SYR SC SCH ×2 (08:58→20:53)
[2020-05-08] MEDS ORDERED: POTASSIUM CHLORIDE 20MEQ/100ML 200 ML IV ONE (11:15)
--- NOTE | 2020-05-08 14:01 | Progress Note ---
DATE: Cardiology Progress Note SUBJECTIVE: No events. No complaints. OBJECTIVE: VITAL SIGNS: Temperature is 98.3, heart rate is 102, respirations are 28, oxygen saturation 100% on room air, and blood pressure is 110/67. GENERAL: An elderly man, in no apparent distress, sleeping comfortably. CARDIOVASCULAR: Tachycardic, regular. No murmurs. LUNGS: Clear to auscultation. ABDOMEN: Soft, nontender. EXTREMITIES: No edema. LABORATORY DATA: All laboratory data reviewed. Hemoglobin is 5.7. Creatinine is 1.34. IMPRESSION: 1. Pneumonia. 2. Sepsis. 3. Streptococcus bacteremia. 4. Wide complex tachycardia, status post cardioversion. 5. Acute on chronic kidney disease. 6. Peripheral artery disease. 7. Coronary artery disease. 8. Anemia. RECOMMENDATIONS: May need to hold antiplatelets and anticoagulants. Continue amiodarone. Maintain normal electrolyte levels. Anemia workup per primary team. P.r.n. metoprolol for heart rate control. If his blood pressure is able to tolerate, we will start p.o. metoprolol. DO BHARATH Song/RYLEY /[id number]
--- NOTE | 2020-05-08 15:20 | NUR ---
Received order for home health. CM spoke to pt at bedside. States he's agreeable to home health if insurance covers it. States to use any company in network with his insurance. Choice letter signed for [facility]. Copy of choice letter placed in pt's transition of care folder. Signed copy placed in front of chart. Home health order and clinicals faxed to [facility] at [phone] / . CM will update HH with discharge date.
--- NOTE | 2020-05-08 16:56 | NUR ---
PT OFF THE FLOOR TO RADIOLOGY.
--- NOTE | 2020-05-08 19:02 | Progress Note ---
DATE: SUBJECTIVE: The patient had low blood count this morning with a hemoglobin of 5.7. He has received packed red blood cells and is scheduled to receive a second unit. He had a CT scan of the abdomen and pelvis last night without contrast because of abdominal distention. His CT showed finding suspicious for fecal impaction with dilated loops of small bowel. The patient also had a hydropic gallbladder. He went for a HIDA scan earlier today. PHYSICAL EXAMINATION: VITAL SIGNS: Blood pressure is 111/75, saturation is 100% on 2 L, and the pulse is 113. HEENT: Shows no facial swelling or erythema. CARDIAC: Reveals regular rate and rhythm with normal S1 and S2. LUNGS: Auscultation of lungs reveals rhonchorous breath sounds bilaterally. There is no wheezing. ABDOMEN: Soft and nontender. Abdomen is distended. There is poorly localized tenderness. EXTREMITIES: There is no leg edema. LABORATORY DATA: BUN to creatinine ratio is 37 to 1.34 with a carbon dioxide of 18. Potassium is 3.2 and the albumin is 2.3. White blood cell count is 12.5 and hemoglobin is 5.7. Platelet count is 269. IMPRESSION: 1. Abdominal distention of unclear etiology. 2. Pneumonia with sepsis, present on admission. 3. Anemia secondary to acute blood loss. 4. Rheumatoid arthritis. 5. Acute kidney injury. 6. Atrial fibrillation. 7. Coronary artery disease. PLAN: 1. Await results of HIDA scan and GI evaluation. 2. Continue current antibiotics. 3. Continue IV fluids. 4. Continue current treatment for COVID, current regimen for atrial fibrillation. 5. Continue current treatment for rheumatoid arthritis. Keegan Hernandez MD [facility]/MODL /[id number]
[2020-05-08] MEDS: ONDANSETRON HCL INJ 2MG/ML 2ML 2 MG/ML VIAL IV PRN (19:46)
[2020-05-08] MEDS ORDERED: FUROSEMIDE INJ 10 MG/ML 4 ML VIAL ONE (21:18)
[2020-05-08] MEDS: FUROSEMIDE INJ 10 MG/ML 2 ML VIAL IV PRN (21:20)
--- NOTE | 2020-05-08 21:25 | NUR ---
PATIENT STILL COMPLAINING OF NAUSEA AND VOMITING DESPITE HAVING RECEIVED REGLAN AND ZOFRAN IV. NOTIFIED DR GVIENS WHO ORDERED KUB STAT, FLEET ENEMA, CHANGE REGLAN FROM PRN TO TIM EVERY 6HR, AND NG TUBE PLACEMENT TO LIS. NURSE GOT OPS ANALYST TO HELP PLACE NG TUBE AND AWAITING XRAY CONFIRMATION OF PLACEMENT. PT ALSO TO RECEIVE ANOTHER UNIT OF PRBC. WILL CONT TO MONITOR.
[2020-05-08] MEDS ORDERED: SOD PHOSPHATE PR ONE (21:30)
[2020-05-08] MEDS ORDERED: [UNRECOGNIZED DRUG - OTHER] PR ONE (21:30)
--- NOTE | 2020-05-08 21:55 | Diagnostic Imaging Report ---
Hepatobiliary Scan with Gallbladder Ejection Fraction Clinical information: 75 M with generalized abdominal pain with N/V. Septic shock. Technique: Following intravenous administration of 5.2 millicuries of Tc-99m mebrofenin, dynamic images of the abdomen in the anterior projection were obtained through 20 minutes. Sincalide (CCK analog) 1.7 micrograms was administered intravenously over 30 minutes with additional imaging for determination of gallbladder ejection fraction. Discussion: Perfusion of the liver is normal. Extraction of tracer by the liver parenchyma is normal. Tracer appears promptly within the biliary tract. The gallbladder begins to fill at 12 minutes post injection of tracer and fills adequately. Tracer is seen in the small bowel during the sincalide infusion. There is no contractile response by the gallbladder to the pharmacologic dose of sincalide. No emptying of the gallbladder occurs during the 30 minute infusion. Impression: 1. Filling of the gallbladder excludes acute cystic duct obstruction/acute cholecystitis. 2. The gallbladder ejection fraction is undefined as there is no emptying of the gallbladder during the infusion of sincalide. This absence of a contractile response to sincalide supports the clinical diagnosis of chronic cholecystitis/gallbladder dyskinesia. Signed by: Dr. Yazmin Yanez M.D. on 05/08/2020 9:52 PM
[2020-05-08] MEDS ORDERED: SOD PHOSPHATE/SOD BIPHOSPHATE ENEMA 132 ML BTL PR ONE (22:30)
--- NOTE | 2020-05-08 22:36 | NUR ---
XRAY SHOWS THE NG TUBE NOT CORRECTLY PLACED AND PATIENT REFUSED TO ALLOW TO BE CORRECTED SO PULLED OUT AND PATIENT STATES THE ONLY WAY HE WILL ALLOW ANOTHER TO BE PLACED IS UNDER SEDATION. ENEMA GIVEN, BLOOD STARTED AND WILL CONT TO MONITOR PATIENT.
--- NOTE | 2020-05-08 22:44 | Diagnostic Imaging Report ---
EXAM: Abdomen Radiograph 1 View(s) INDICATION: ^NG TUBE PLACEMENT AND CONSTIPATION COMPARISON: Abdominal CT 05/07/2020 FINDINGS: No abnormalities in the lower chest. No lines or tubes. Greater than normal volume of stool in the rectum. Mildly dilated loops of small bowel. No abnormal abdominal calcifications.. No abnormal soft tissue masses. No acute osseous abnormality. Mild degenerative changes in the lumbar spine and pelvis. Biiliac vascular stents. IMPRESSION: No enteric tube visualized. Dilated small bowel, possibly due to ileus or small bowel obstruction. Distended stomach. Greater than normal volume of stool in the rectum, fecal impaction is possible. Signed by: Sarbjit Galvez DO on 05/08/2020 10:41 PM
[2020-05-08] MEDS: METOCLOPRAMIDE HCL 10 MG/2ML VIAL IV SCH (23:34)
[2020-05-09] VITALS (8 sets, daily range): BP systolic 87–109; BP diastolic 58–76
--- NOTE | 2020-05-09 01:16 | NUR ---
DR GIVENS SAW PT AND WE WERE ABLE TO GET ER NURSE MARISOL TO INSERT NG TUBE WHICH IMMEDIATELY PULLED 700 ML GREEN FLUID FROM STOMACH. KUB AND CHEST XRAY ORDERED FOR AM. PT STATES HE FEELS MORE COMFORTABLE. WILL CONT TO MONITOR.
[2020-05-09] MEDS ORDERED: PANTOPRAZOLE 40 MG 10ML VIAL IV STA (01:22)
[2020-05-09 05:48] LABS: BASOPHILS % 0.3 % (0.0-1.0); EOSINOPHILS # (AUTO) 0.3 (0.0-0.4); HEMATOCRIT 29.4 % (38.2-49.6); HEMOGLOBIN 9.3 g/dL (14.0-18.0); LYMPHOCYTES # (AUTO) 0.7 (1.0-3.2); LYMPHOCYTES % 7.2 % (18.0-39.1); MEAN CORPUSCULAR HEMOGLOBIN 29.6 pg (28-32); MEAN CORPUSCULAR HGB CONC 31.6 g/dL (31-35); MEAN CORPUSCULAR VOLUME 93.6 fL (81-99); MONOCYTES # (AUTO) 1.2 (0.2-0.8); MONOCYTES % 11.6 % (4.4-11.3); NEUTROPHILS # (AUTO) 7.1 (2.1-6.9); PLATELET COUNT 202 x10e3/uL (140-360); RED BLOOD COUNT 3.14 x10e6/uL (4.3-5.7); RED CELL DISTRIBUTION WIDTH 16.3 % (11.7-14.4)
[2020-05-09] MEDS: METOCLOPRAMIDE HCL 10 MG/2ML VIAL IV SCH ×4 (05:51→22:45)
[2020-05-09 06:00] LABS: AMYLASE 26 U/L (25-125); LIPASE 7 U/L (8-78)
--- NOTE | 2020-05-09 06:00 | NUR ---
PATIENT HAVING LOW BP AGAIN DESPITE HAVING GOTTEN BLOOD TRANSFUSION AND NS AFTER DURING THE NIGHT WITH TACHYCARDIA. CALLED DR. BRANDON TO NOTIFY AND MAP IS STILL ABOVE 65. AWAITING CALL BACK. WILL CONT TO MONITOR.
[2020-05-09 06:25] LABS: ALBUMIN 2.3 g/dL (3.5-5.0); ALBUMIN/GLOBULIN RATIO 0.7 (0.8-2.0); ANION GAP 14.8 mmol/L (8-16); CALCIUM 8.5 mg/dL (8.4-10.2); CREATININE, SERUM 1.78 mg/dL (0.72-1.25); POTASSIUM 3.8 mmol/L (3.5-5.1)
--- NOTE | 2020-05-09 06:33 | NUR ---
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 PT PREVIOUS HISTORY OF OUTPUT HIGHER CALLED [facility] FOR [facility] AND NOTIFIED OF TACHY, LOW BP, URINE OUTPUT AND CURRENT LABS WAS ORDERED TO CONSULT DR. DA SILVA FOR RENAL. WILL CONT TO MONITOR.
--- NOTE | 2020-05-09 07:00 | NUR ---
BEDSIDE SHIFT REPORT FROM MAYELIN PLATT. PT DENIES NEEDS AT THIS TIME.
[2020-05-09] MEDS: ASPIRIN 81 MG CHEW TAB PO SCH (08:19)
[2020-05-09] MEDS: ASCORBIC ACID 500 MG TAB PO SCH ×2 (08:19→17:38)
[2020-05-09] MEDS: TAMSULOSIN HCL 0.4 MG CAP PO SCH (08:19)
[2020-05-09] MEDS: ATORVASTATIN 20 MG TAB PO SCH (08:19)
[2020-05-09] MEDS: ENOXAPARIN SOD INJ 40 MG/0.4 ML SYR SC SCH ×2 (08:19→19:41)
[2020-05-09] MEDS: FAMOTIDINE 20 MG/2 ML VIAL IV SCH ×2 (08:19→17:38)
[2020-05-09] MEDS: AMIODARONE HCL 200 MG TAB PO SCH ×2 (08:19→17:38)
[2020-05-09] MEDS: PANTOPRAZOLE 40 MG 10ML VIAL IV SCH ×2 (08:19→19:41)
[2020-05-09] MEDS: HYDROXYCHLOROQUINE SULFATE 200 MG TAB PO SCH ×2 (08:19→17:38)
[2020-05-09] MEDS: CLOPIDOGREL BISULFATE 75 MG TAB PO SCH (08:19)
[2020-05-09] MEDS: POLYETHYLENE GLYCOL 3350 17 GM PACK PO SCH ×2 (08:19→17:38)
[2020-05-09] MEDS: ZINC SULFATE 220 MG CAP PO SCH (08:20)
--- NOTE | 2020-05-09 08:40 | Diagnostic Imaging Report ---
EXAMINATION: CHEST SINGLE (PORTABLE), ABDOMEN-1VIEW (KUB) INDICATION: Line placement, shortness of breath COMPARISON: Chest radiograph of 05/07/2020 FINDINGS: LINES/TUBES:Right IJ central venous catheter appears unchanged. Enteric tube projects below the diaphragm with tip in the stomach. EKG leads overlie the chest. LUNGS:The lungs are moderately inflated. There is perihilar fullness and indistinctness of the pulmonary vasculature. Unchanged mild bibasilar patchy opacities. PLEURA:No pleural effusion or pneumothorax. MEDIASTINUM:The cardiomediastinal silhouette appears unchanged in size and shape. BONES/SOFT TISSUES:No acute osseous injury. ABDOMEN:No free air under the diaphragm. Gaseous distention of the colon. IMPRESSION: Interval placement of enteric tube which terminates in the stomach. Mild interstitial pulmonary edema. Mild bibasilar patchy opacities may represent subsegmental atelectasis however superimposed aspiration or pneumonia could have a similar appearance in the proper clinical setting. Signed by: Laura Mena MD on 05/09/2020 8:37 AM
[2020-05-09] MEDS ORDERED: D5.45%NS/KCL 20MEQ 1,000 ML IV SCH (09:30)
[2020-05-09] MEDS: CEFTRIAXONE SOD 1 GM/NS 50 ML 50 ML IV SCH (09:35)
[2020-05-09] MEDS: AZITHROMYCIN 500MG/NS 250 ML 250 ML IV SCH (09:47)
[2020-05-09 10:34] LABS: BAND NEUTROPHILS % (MANUAL) 2 %; EOSINOPHILS % (MANUAL) 3 % (0-7); LYMPHOCYTES % (MANUAL) 6 % (19-48); MONOCYTES % (MANUAL) 6 % (3.4-9.0); NEUTROPHILS % (MANUAL) 83 % (40-74)
[2020-05-09] MEDS ORDERED: DIGOXIN INJ 0.25 MG/ML 2 ML AMP IV ONE (12:00)
--- NOTE | 2020-05-09 12:11 | Progress Note ---
DATE: Cardiology Progress Note SUBJECTIVE: The patient reports abdominal distention and discomfort, some shortness of breath. OBJECTIVE: VITAL SIGNS: Temperature is 98.4, heart rate is 112, respirations are 18, blood pressure is 101/58, and oxygen saturation is 100% on 14 L face mask. GENERAL: He is a chronically ill-appearing elderly man, in no apparent distress. CARDIOVASCULAR: Irregularly irregular. Tachycardic. LUNGS: Diminished breath sounds at the bases. ABDOMEN: Soft, mildly distended, mildly tender. EXTREMITIES: No edema. CARDIOVASCULAR MEDICATIONS: Reviewed. LABORATORY DATA: Reviewed. Creatinine is 1.78 and potassium is 3.8. Hemoglobin is improved to 9.3. Telemetry monitoring revealed atrial fibrillation with rapid ventricular response. IMPRESSION: 1. Pneumonia. 2. Sepsis. 3. Hypertension. 4. Bacteremia. 5. Wide-complex tachycardia. 6. Atrial fibrillation. 7. Zaelr-xn-wnjtjlg kidney disease. 8. Peripheral artery disease. 9. Coronary artery disease. 10. Abdominal distention. RECOMMENDATION: Continue current cardiovascular medications. His blood pressure is running on the low side, so he cannot tolerate the addition of a beta-jigar at this point in time. Maintain normal electrolyte levels. We will give a dose of digoxin for better heart rate control. Continue amiodarone. DO BHARATH Song/MODL /[id number]
[2020-05-09] MEDS ORDERED: SODIUM CHLORIDE 0.9% 1000ML 1,000 ML IV STA (14:54)
[2020-05-09] MEDS: SODIUM BICARBONATE 8.4% SYRING 150 ML in DEXTROSE 5% 1,000 ML IV SCH (15:34)
--- NOTE | 2020-05-09 16:37 | Progress Note ---
DATE: SUBJECTIVE: The patient is sleeping. He still has some abdominal distention. His HIDA scan showed no acute cholecystitis. PHYSICAL EXAMINATION: VITAL SIGNS: Blood pressure is 101/70 and saturation is now 100% on a high-flow nasal cannula. HEENT: Shows no facial swelling or erythema. CARDIAC: Reveals regular rate and rhythm with normal S1 and S2. LUNGS: Auscultation of lungs reveals decreased breath sounds at the bases. There is no wheezing. ABDOMEN: Distended. Soft. There is no rebound. EXTREMITIES: Shows 1 to 2+ leg edema. LABORATORY DATA: The hemoglobin is 9.3 and the white blood cell count is 10.27, platelet count is normal. BUN to creatinine ratio is 35 to 1.78. Carbon dioxide is 18. Albumin is 2.3. IMPRESSION: 1. Abdominal distention. 2. Anemia secondary to acute blood loss. 3. Pneumonia with sepsis, present on admission. 4. Acute kidney injury. 5. Atrial fibrillation. 6. Rheumatoid arthritis. PLAN: 1. Continue current antibiotics. 2. Await further input from Gastroenterology. 3. Continue to monitor blood counts. 4. Continue to monitor renal function. Keegan Hernandez MD [facility] /[id number]
[2020-05-09] MEDS: ALBUTEROL/IPRATROPIUM 3 ML NEB NEB SCH (23:45)
[2020-05-10] VITALS (12 sets, daily range): BP systolic 72–136; BP diastolic 49–91
[2020-05-10] MEDS: ALBUTEROL/IPRATROPIUM 3 ML NEB NEB SCH ×6 (00:20→19:00)
[2020-05-10] MEDS: SODIUM BICARBONATE 8.4% SYRING 150 ML in DEXTROSE 5% 1,000 ML IV SCH ×2 (00:25→12:45)
[2020-05-10] MEDS ORDERED: SOD PHOSPHATE/SOD BIPHOSPHATE ENEMA 132 ML BTL PR ONE (00:45)
--- NOTE | 2020-05-10 02:15 | NUR ---
NURSE REVIEWED PATIENT BLOOD CULTURE RESULTS TO SEE IF ROGERS POSTED AND IS NOW LISTED POSTED FOR STAPHYLOCOCCUS EPIDERMIDIS WITH ROGERS TO DAPTOMYCIN, LINEZOLID AND VANCOMYCIN; PATIENT CURRENTLY ON CEFTRIAXONE (RESISTENT PER LABS) AND AZITHROMYCIN. CALLED TO NOTIFY DR MEYER OF RESULTS, AWAITING CALL BACK.
[2020-05-10 04:37] LABS: BASOPHILS # (AUTO) 0.1 (0.0-0.1); BASOPHILS % 0.4 % (0.0-1.0); EOSINOPHILS # (AUTO) 0.4 (0.0-0.4); EOSINOPHILS % 3.2 % (0.0-6.0); HEMATOCRIT 29.1 % (38.2-49.6); LYMPHOCYTES # (AUTO) 1.3 (1.0-3.2); MEAN CORPUSCULAR HEMOGLOBIN 28.6 pg (28-32); MEAN CORPUSCULAR HGB CONC 30.9 g/dL (31-35); MEAN CORPUSCULAR VOLUME 92.4 fL (81-99); MONOCYTES # (AUTO) 1.5 (0.2-0.8); MONOCYTES % 12.3 % (4.4-11.3); NEUTROPHILS # (AUTO) 7.5 (2.1-6.9); NEUTROPHILS % 61.2 % (38.7-80.0); PLATELET COUNT 206 x10e3/uL (140-360); RED BLOOD COUNT 3.15 x10e6/uL (4.3-5.7); RED CELL DISTRIBUTION WIDTH 16.8 % (11.7-14.4)
[2020-05-10 04:57] LABS: ALBUMIN 2.1 g/dL (3.5-5.0); ALBUMIN/GLOBULIN RATIO 0.6 (0.8-2.0); ANION GAP 13.6 mmol/L (8-16); CALCIUM 8.4 mg/dL (8.4-10.2); CREATININE, SERUM 1.61 mg/dL (0.72-1.25); MAGNESIUM 1.9 MG/DL (1.3-2.1); PHOSPHORUS 2.4 MG/DL (2.3-4.7); POTASSIUM 3.6 mmol/L (3.5-5.1)
--- NOTE | 2020-05-10 05:00 | NUR ---
LEFT VOICEMAIL FOR DR MEYER TO RETURN CALL IN REGARDS TO BC RESULTS AND ANTIBIOTIC CHANGE. AWAITING CALL BACK.
[2020-05-10 05:03] LABS: CREATINE KINASE MB 1.4 ng/mL (0-5.0)
[2020-05-10 05:28] LABS: CREATININE,URINE RANDOM 128.56 mg/dL (63-166)
[2020-05-10] MEDS: METOCLOPRAMIDE HCL 10 MG/2ML VIAL IV SCH ×4 (06:24→23:44)
--- NOTE | 2020-05-10 06:36 | NUR ---
CALLED DR MEYER OFFICE AND HAD HIM PAGED AGAIN IN REGARDS TO BC RESULTS AND ANTIBIOTIC CHANGE NEEDED PER LABS. AWAITING CALL BACK.
--- NOTE | 2020-05-10 06:37 | NUR ---
CALLED TO NOTIFY DR DA SILVA THAT PT URINE OUTPUT FOR THE EVENING SHIFT WAS 170 ML, PT CURRENTLY GETTING IV D5+BICARB @100ML/HR. AWAITING CALL BACK.
--- NOTE | 2020-05-10 07:00 | NUR ---
BEDSIDE SHIFT REPORT FROM MAYELIN PLATT. PT DENIES NEEDS AT THIS TIME.
[2020-05-10] MEDS: FAMOTIDINE 20 MG/2 ML VIAL IV SCH ×2 (08:25→17:49)
[2020-05-10] MEDS: ENOXAPARIN SOD INJ 40 MG/0.4 ML SYR SC SCH ×2 (08:25→22:23)
[2020-05-10] MEDS: ASCORBIC ACID 500 MG TAB PO SCH ×2 (08:25→17:49)
[2020-05-10] MEDS: CLOPIDOGREL BISULFATE 75 MG TAB PO SCH (08:25)
[2020-05-10] MEDS: POLYETHYLENE GLYCOL 3350 17 GM PACK PO SCH ×2 (08:25→17:49)
[2020-05-10] MEDS: HYDROXYCHLOROQUINE SULFATE 200 MG TAB PO SCH ×2 (08:25→17:49)
[2020-05-10] MEDS: TAMSULOSIN HCL 0.4 MG CAP PO SCH (08:25)
[2020-05-10] MEDS: ZINC SULFATE 220 MG CAP PO SCH (08:25)
[2020-05-10] MEDS: PANTOPRAZOLE 40 MG 10ML VIAL IV SCH ×2 (08:25→22:23)
[2020-05-10] MEDS: ATORVASTATIN 20 MG TAB PO SCH (08:25)
[2020-05-10] MEDS: ASPIRIN 81 MG CHEW TAB PO SCH (08:25)
[2020-05-10] MEDS: AMIODARONE HCL 200 MG TAB PO SCH ×2 (08:25→17:49)
[2020-05-10 09:24] LABS: EOSINOPHILS % (MANUAL) 5 % (0-7); LYMPHOCYTES % (MANUAL) 24 % (19-48); MONOCYTES % (MANUAL) 10 % (3.4-9.0); MYELOCYTES % (MANUAL) 3 % (0-0); NEUTROPHILS % (MANUAL) 58 % (40-74)
[2020-05-10 09:25] LABS: ANISOCYTOSIS SLIGHT; PLATELET ESTIMATE ADEQUATE; POIKILOCYTOSIS SLIGHT; RBC MORPHOLOGY COMMENT NORMAL
[2020-05-10 09:26] LABS: PLATELET MORPHOLOGY COMMENT RARE EDTA CLUMPING
[2020-05-10] MEDS ORDERED: DIGOXIN INJ 0.25 MG/ML 2 ML AMP IV ONE (11:00)
--- NOTE | 2020-05-10 13:26 | Progress Note ---
DATE: Cardiology Progress Note SUBJECTIVE: The patient is mildly confused, has some abdominal distention. The patient's case was discussed with nursing staff and reports decreased urinary output. OBJECTIVE: VITAL SIGNS: Temperature is 98, heart rate is ranging from 100 to 120, respiratory rate is in the 30s, blood pressure is 72/57, oxygen saturation 100% on 15 L nasal cannula. GENERAL: He is chronically ill-appearing elderly man, in no apparent distress. CARDIOVASCULAR: Irregularly irregular. Tachycardic. LUNGS: Diminished breath sounds at bases. ABDOMEN: Soft, distended, nontender. EXTREMITIES: No edema. CARDIOVASCULAR MEDICATIONS: Reviewed. Include amiodarone 400 b.i.d., Plavix, atorvastatin, aspirin, Lovenox, Lasix. LABORATORY DATA: Reviewed. Telemetry monitoring revealed atrial fibrillation with rapid ventricular response. IMPRESSION: 1. Pneumonia. 2. Sepsis. 3. Hypotension. 4. Bacteremia. 5. Wide-complex tachycardia. 6. Atrial fibrillation. 7. Acute on chronic kidney disease. 8. Oliguria. 9. Peripheral artery disease. 10. Coronary artery disease. 11. Abdominal distention. RECOMMENDATIONS: Continue current cardiovascular medications including amiodarone. Metoprolol has not been given due to hypotension. We will give additional dose of digoxin today. Continue maintenance fluids. Nephrology to comment on oliguria. Continue to monitor on telemetry and normalize his electrolyte levels. DO BHARATH Song/RYLEY /[id number]
--- NOTE | 2020-05-10 13:56 | Consultation ---
DATE OF CONSULTATION: 05/09/2020 HISTORY OF PRESENT ILLNESS: A 75-year-old male with a very poor historian, currently being treated for underlying ileus. Renal consult for management of acute kidney injury. He was admitted with hypotension, nausea, and vomiting for 2 days duration. There was a large volume of stool noted in the colon, worse in the mid and distal sigmoid colon with moderate dilatation of the stomach. Multiple dilated loops of jejunum proximal and medium. He is currently lying supine, has an NG tube receiving IV fluid. Intake and output noted, has been relatively nonoliguric. Chest x-ray shows mild interstitial pulmonary edema. He is allergic to penicillin. Currently, lying supine. Denies any nausea, vomiting, fever, or chills. He was also has had a fracture of his left fibula. He has evidence of peripheral vascular disease with claudication. Atherectomy and balloon angioplasty of the left femoral artery in the past. History of coronary artery disease, status post PCI and stenting, history of congestive heart failure, cardiomegaly. History of BPH. Prior acute kidney injury. Baseline CKD 3. SOCIAL HISTORY: Does not smoke or drink. FAMILY HISTORY: Negative for kidney disease. ALLERGIES: HE IS ALLERGIC TO PENICILLIN. CURRENT MEDICATIONS: The patient is on azithromycin, ceftriaxone IV fluid with KCl, amiodarone 400 mg p.o. b.i.d., ascorbic acid, aspirin, atorvastatin 20 mg daily, Plavix 75 mg daily, enoxaparin, famotidine, hydroxychloroquine 200 mg p.o. b.i.d., metoclopramide 10 mg p.o. q.6, zinc sulfate, Flomax, Protonix. He had a Coronavirus test, which was negative. Had episode of hypotension upon admission. History of rheumatoid arthritis. PHYSICAL EXAMINATION: GENERAL: The patient is resting, arousable, no apparent distress. VITAL SIGNS: Blood pressure 101/58, pulse rate 112, afebrile, and oxygen saturation 100%. HEAD AND NECK: Cornea clear. NG tube present. Oral mucosa moist. Neck veins flat. LUNGS: Supine exam, relatively clear. HEART: S1 and S2 audible. ABDOMEN: Distended, soft, nontender. EXTREMITIES: Lower extremity, no edema. LABORATORY DATA: Sodium 138, potassium 3.8, bicarbonate 18, BUN 35, creatinine 1.78. Urinalysis; done earlier shows specific gravity 1.020, 6 to 10 rbc's, 11 to 20 wbc's. Blood cultures grew Staph epidermidis. IMPRESSION: Jblqu-fc-mwkqqdr kidney failure. CT shows relatively normal kidneys, has developed renal tubular acidosis. PLAN: Discontinuing existing IV fluid. We will start IV bicarbonate. I will bolus with [address] Gillette needs strict intake output. He has had a history of BPH, relative hypotension, underlying ileus. Renal electrolytes ordered. We will calculate fraction excretion of sodium, also obtain spot urine protein creatinine ratio. Please see orders. MD WILMER Siddiqi/RYLEY /[id number]
--- NOTE | 2020-05-10 17:09 | NUR ---
Nutrition Screen Note RD Recommendation for Physician: - As GI status allows, ADAT to Cardiac, GI Soft diet Plan of Care: RD following, monitoring for tolerance and adequacy Nutrition reason for involvement: LOS, VERIFICATION SPECIALIST consult Primary Diagnose(s): septic shock, PNA, ileus PMH: CAD, PVD, HTN, CKD, RA, HTN Ht: 71 in Wt: 189.06 lb BMI: 26.4 kg/m2 IBW: [address] Assessment: (05/10) 75 YOM admitted for septic shock and pneumonia found to have an ileus as well. Pt seen today per VERIFICATION SPECIALIST consult for "diabetic diet and healthy foods" as well as LOS. Pt with no hx of DM per chart and BG WNL, diet education not indicated at this time. Pt with significant congestion of lungs when speaking. 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 Pt tolerating diet with 50% intake prior to NPO. NGT in place with <100 ml output at time of visit, pt reports +nausea today and BM yesterday. Per MD notes of imaging, pt with multiple dilated loops of bowel and large volume of stool in the colon. Pt with no questions and concerns at time of visit. Chart reviewed. Labs and meds reviewed. Will continue to monitor. Current Diet: NPO x 1 day Malnutrition Evaluation (05/10/20) The patient does not meet criteria for a specified degree of malnutrition at this time. Will re-evaluate at follow-up as appropriate. Diet Education Needs Assessment: Diet education not indicated. Diet tolerance: tolerance pending, previously tolerating po Nutrition Care Level: low Signed: Esperanza Peñaloza RD, LD, [facility]
[2020-05-10] MEDS ORDERED: SODIUM CHLORIDE 0.9% 1000ML 1,000 ML IV ONE (17:50)
--- NOTE | 2020-05-10 19:20 | NUR ---
1919 - Report received at this time, upon bedside rounding pt was found agonal breathing on 15L NC with SPO2 of 83%. Boy RT in the room at this time and started bagging the pt. 1929 - pt weakening pulse via palpation and spo2 continuously dropping into the 70%'s 1932 - pt PEA code blue called and CPR started by Makayla Valentine RN. 1934 - Dr. Salinas from ER came. 1 epinephrine given and pt had ROSC at 1936. 1941 - Dr. Salinas then intubated the pt. 1944 - awaiting ICU room 195 to be cleaned and the pt will be transferred.
--- NOTE | 2020-05-10 19:22 | Diagnostic Imaging Report ---
EXAMINATION: CHEST SINGLE (PORTABLE) INDICATION: ^resp failure COMPARISON: 05/09/2020 FINDINGS: AP view TUBES and LINES: Stable right internal jugular central line and partially visualized and trach tube. LUNGS: Lungs are well inflated. Again seen diffuse bilateral airspace opacities. PLEURA: No pneumothorax. Suspected small right and trace left pleural effusions. HEART AND MEDIASTINUM: The cardiomediastinal silhouette is enlarged. BONES AND SOFT TISSUES: No acute osseous lesion. Soft tissues are unremarkable. UPPER ABDOMEN: No free air under the diaphragm. IMPRESSION: Diffuse bilateral airspace opacities, slightly increased when compared to prior x-ray, representing edema and/or pneumonia. Suspected small bilateral pleural effusions, right greater than left. Signed by: Dr. Petros Jansen MD on 05/10/2020 7:19 PM
--- NOTE | 2020-05-10 19:23 | Progress Note ---
DATE: Pulmonary Critical Care Progress Note SUBJECTIVE: The patient has some increased tachypnea and rhonchorous breath sounds. His heart rate is increased at 130. PHYSICAL EXAMINATION: VITAL SIGNS: Blood pressure is 94/56 and saturation is 100% on 10 L. The heart rate is 130. Respiratory rate is 30 to 35. HEENT: Shows no facial swelling or erythema. PULMONARY: There are rhonchorous breath sounds bilaterally. There is no wheezing. ABDOMEN: Soft and nontender. There is no rebound or guarding. EXTREMITIES: Shows no leg edema or calf tenderness. There is no cyanosis or clubbing. SKIN: Shows no rashes. NEUROLOGICAL: Shows no focal abnormalities. LABORATORY DATA: BUN to creatinine ratio is 32 to 1.61. Carbon dioxide is 20 and the chloride is 110. Hemoglobin is 9 and the white blood cell count is 12.2. RADIOGRAPHIC DATA: Chest x-ray shows bilateral infiltrates. IMPRESSION: 1. Omnyo-to-qndzyfa respiratory failure. 2. Aspiration pneumonia with sepsis, present on admission. 3. Anemia secondary to acute blood loss. 4. Acute kidney injury. 5. Atrial fibrillation. 6. Rheumatoid arthritis. PLAN: 1. Stat ABG. 2. Continue current antibiotics. 3. Repeat chest x-ray. 4. Continue dextrose with bicarbonate. 5. Continue Lovenox. 6. Lasix. 7. EKG. Keegan Hernandez MD [facility]/MODL /[id number]
--- NOTE | 2020-05-10 20:15 | NUR ---
Pt transferred to ICU 195 without event.
[2020-05-10] MEDS ORDERED: SODIUM CHLORIDE 0.9% 1000ML 1,000 ML ONE ×2 (20:20→21:46)
[2020-05-10] MEDS: PROPOFOL IV EMULSION 10MG/ML 100 ML IV PRN (20:30)
--- NOTE | 2020-05-10 20:30 | NUR ---
Dr. Sophie Hernandez present at the bedside assessing the pt.
[2020-05-10] MEDS ORDERED: NOREPINEPHRINE INJ 4MG/4ML 8 MG in DEXTROSE 5% 250ML 250 ML IV SCH (20:45)
[2020-05-10] MEDS ORDERED: PROPOFOL IV EMULSION 10MG/ML 100 ML ONE (20:52)
[2020-05-10] MEDS: FUROSEMIDE INJ 10 MG/ML 2 ML VIAL IV PRN (22:29)
[2020-05-10] MEDS ORDERED: VANCOMYCIN 1GM/NS 250 ML 250 ML IV ONE (23:00)
[2020-05-10] MEDS ORDERED: LACTATED RINGER'S 1,000 ML INJ ONE (23:00)
[2020-05-10 23:11] LABS: BASOPHILS # (AUTO) 0.1 (0.0-0.1); BASOPHILS % 0.5 % (0.0-1.0); EOSINOPHILS # (AUTO) 0.3 (0.0-0.4); EOSINOPHILS % 1.3 % (0.0-6.0); HEMATOCRIT 27.4 % (38.2-49.6); HEMOGLOBIN 8.2 g/dL (14.0-18.0); LYMPHOCYTES # (AUTO) 1.2 (1.0-3.2); LYMPHOCYTES % 6.6 % (18.0-39.1); MEAN CORPUSCULAR HGB CONC 29.9 g/dL (31-35); MONOCYTES # (AUTO) 1.2 (0.2-0.8); MONOCYTES % 6.6 % (4.4-11.3); NEUTROPHILS # (AUTO) 13.7 (2.1-6.9); NEUTROPHILS % 74.3 % (38.7-80.0); PLATELET COUNT 199 x10e3/uL (140-360); RED BLOOD COUNT 2.83 x10e6/uL (4.3-5.7)
[2020-05-10 23:13] LABS: MEAN CORPUSCULAR VOLUME 96.8 fL (81-99)
[2020-05-10 23:34] LABS: ALBUMIN 1.8 g/dL (3.5-5.0); ALBUMIN/GLOBULIN RATIO 0.6 (0.8-2.0); CREATININE, SERUM 1.68 mg/dL (0.72-1.25)
[2020-05-10 23:35] LABS: CALCIUM 7.1 mg/dL (8.4-10.2)
[2020-05-10 23:37] LABS: ABG HCO3 19 mmol/L (22-26); ABG PCO2 40 mmHg (35-45); ABG PH 7.28 (7.35-7.45); ABG PO2 225 mmHg (80-105)
--- NOTE | 2020-05-10 23:38 | Progress Note ---
DATE: PROGRESS NOTE ADDENDUM SUBJECTIVE: The patient had worsening congestion and dyspnea. A rapid response was called. He lost his pulse briefly and required CPR for about 2 minutes. He received epinephrine. He was subsequently intubated. The patient is now on mechanical ventilation with a PRVC mode of ventilation. The patient is also on Levophed at 30 mcg. PHYSICAL EXAMINATION: VITAL SIGNS: Blood pressure is now 95/60 on 30 mcg of Levophed. The pulse is 101. HEENT: Shows no facial swelling. There is a right IJ line. He has an oral endotracheal tube in place. The site looks clean. CARDIAC: Reveals regular rate and rhythm with normal S1 and S2. LUNGS: Auscultation of lungs reveals rhonchorous breath sounds bilaterally. ABDOMEN: Soft and nontender. There is no rebound or guarding. EXTREMITIES: Show no leg edema or calf tenderness. There is no cyanosis or clubbing. IMAGING STUDIES: Chest x-ray shows worsening bilateral infiltrates. IMPRESSION: 1. Aspiration pneumonia with septic shock. 2. Wnbmb-uv-hcilyfp respiratory failure. 3. Anemia secondary to acute blood loss. 4. Acute kidney injury. 5. Atrial fibrillation. PLAN: 1. The patient will receive a liter of Ringer's lactate now. 2. Vanco x1 plus cefepime twice daily. 3. Sputum culture and repeat blood cultures. 4. Repeat ABG. 5. Wean Levophed as tolerated. 6. EKG. 7. Greater than 35 minutes in direct critical care time during 2 separate visits. Keegan Hernandez MD [facility]/[place] /[id number]
[2020-05-10] MEDS: CEFEPIME 1GM/NS 0.9% 50 ML 50 ML IV SCH (23:44)
[2020-05-10] MEDS ORDERED: NOREPINEPHRINE 8 MG/D5W 250 ML 250 ML ONE (23:55)
[2020-05-11] VITALS (21 sets, daily range): BP systolic 101–153; BP diastolic 57–79
[2020-05-11] MEDS: ALBUTEROL/IPRATROPIUM 3 ML NEB NEB SCH ×6 (00:50→20:10)
[2020-05-11] MEDS: SODIUM BICARBONATE 8.4% SYRING 150 ML in DEXTROSE 5% 1,000 ML IV SCH ×3 (01:30→23:32)
--- NOTE | 2020-05-11 01:30 | NUR ---
Rishi Sheikh SUBSURFACE AUGMENTEE OPERATOR for Dr. Ellington's office present and assessing the pt. I updated on the pts intubation and medications at this time.
[2020-05-11] MEDS: PROPOFOL IV EMULSION 10MG/ML 100 ML IV PRN (02:05)
--- NOTE | 2020-05-11 03:30 | NUR ---
Dr. Sophie Hernandez called the unit at this time and I read him the pts ABG results. New orders received to increase ventilator rate to 22, decrease FIO2% to 70%, give Solu-Medrol 60mg IV once now, and repeat ABG at 0730.
[2020-05-11] MEDS ORDERED: METHYLPREDNISOLONE SOD SUCC 125 MG/2ML VIAL IV ONE (03:45)
--- NOTE | 2020-05-11 04:44 | Progress Note ---
DATE: 05/10/2020 EVENTS OVERNIGHT: Status post code blue today, was found with agonal breathing. Ambu bag was utilized. This was a witnessed PEA in one round of epinephrine. Levophed was started. Return of spontaneous circulation was obtained. The patient was intubated by Dr. Salinas, the emergency department physician. CONSULTING PHYSICIANS: 1. Dr. Hernandez with Pulmonology. 2. Dr. Scales with Infectious Disease. 3. Dr. Valencia with Cardiology. 4. Dr. Patricio with Orthopedics. 5. Dr. Dobbs GI. 6. Dr. Rodriguez with Nephrology. SUBJECTIVE: Sedated with propofol. OBJECTIVE: VITAL SIGNS: Temperature 98.0, heart rate 106, blood pressure 92/57, earlier today, respirations 34, the oxygen saturation 100%. Intake 2445 mL and 2120 mL out. T-max 99.3. GENERAL: Supine. Sedated. LUNGS: With rhonchi on the right lower lobe. Has size 8 ET tube that is about 24 cm at the lip on the left side. Currently on volume control, ventilation, rate 15, tidal volume 500, FiO2 of 100%. PEEP 5, intrinsic respiratory rate 23 breaths per minute, peak pressure 34, minute ventilation 12 L/minute. HEENT: EOMI. Left NG tube to intermittent low wall suction with green drainage. NECK: Supple. CARDIOVASCULAR: Regular rate and rhythm without murmur. Lactated Ringer's infusing at 125 mL an hour into a right IJ triple-lumen central venous catheter, has Levophed infusing at 30 mcg/minute. ABDOMEN: Bowel sounds hypoactive. He is distended. Has a Gillette catheter with vadim urine. EXTREMITIES: No pitting edema. No clubbing, cyanosis, or marked swelling. No signs or symptoms of DVT. Bilateral soft wrist restraints. SCDs are in place. NEUROLOGICAL: Sedated with propofol at 35 mcg/kg per minute prior to the code blue and intubation. GCS 15. Nonfocal. LABORATORY DATA: WBCs 12.23, RBC 3.15, hemoglobin 9, hematocrit 29.1, platelets 206, neutrophils 61.2%. Sodium 140, potassium 3.6, chloride 110, CO2 of 20, anion gap 13.6, BUN 32, creatinine 1.61, estimated GFR 42, glucose 94, calcium 8.4, phosphorus 2.4, magnesium 1.9, total bilirubin 0.6, AST 38, ALT 31, alkaline phosphatase 104, total protein 5.5, albumin 2.1, ammonia level 49. Creatine kinase 168, CK-MB 1.4, troponin I 0.202. B-type natriuretic peptide 339. Lactic acid 0.7. Fingerstick blood glucose level 152. Random urine sodium 26, urine creatinine 128.56. On 05/04, blood culture grew Staphylococcus species, coag-negative staph. After intubation around 11:00 p.m., WBC 18.53, RBC 2.83, hemoglobin 8.2, hematocrit 27.4, platelets 199, neutrophils 74.3%. ABG with pH 7.28, pCO2 40, PaO2 225, HC03 19, oxygen saturation 100%. Base excess -8. FiO2 of 100%. Sodium 143, potassium 4.0, chloride 114, CO2 of 19, anion gap 14, BUN 33 and creatinine 1.68, estimated GFR 40, glucose 101, calcium 7.1, total bilirubin 0.5, AST 37, ALT 28, alkaline phosphatase 95, total protein 4.7, albumin 1.8. Post intubation chest x-ray showed diffuse bilateral airspace opacities, slightly increased when compared with prior x-ray, representing edema and/or pneumonia suspected small bilateral pleural effusions, right greater than left. ASSESSMENT AND PLAN: 1. Cardiopulmonary arrest, probable aspiration, status post intubation, ventilator weaning per Pulmonology/Critical Care Medicine. Maintain soft wrist restraints to avoid iatrogenic extubation. 2. Wide-complex tachycardia, status post cardioversion in the ER. Continue amiodarone and Plavix. Cardiology following. 3. Bilateral multifocal viral community-acquired pneumonia, present on arrival, due to COVID-19 with sepsis. WBC 18.53. Follow up on lactic acid level and continue IV fluids at 125 mL an hour. Continue vasopressor, Levophed, and wean Levophed off as possible. Rocephin/azithromycin, DuoNeb, Lovenox, vitamin C, zinc sulfate. 4. Acute kidney injury on chronic kidney disease, 3. Nephrology consulted and following bicarbonate drip. Gillette catheter insertion. A strict intake and output. 5. Fecal impaction, possible ileus. Gastroenterology following. Appreciate recommendations. Maintain NG tube to intermittent low wall suction. HIDA scan was negative. Per intake and output, two bowel movements today and two yesterday. 6. Transaminitis, alkaline phosphatase 104 (151), AST 38 (34) monitor. 7. Prophylaxis. Protonix, Pepcid, and Lovenox. 8. Disposition. Keep in ICU for now. Time spent 35 minutes, billing code [id number]. Dictated by Rishi Sheikh, GRAVURE PRINTING MACHINIST MD [facility]/MODL /[id number]
[2020-05-11 05:09] LABS: BASOPHILS # (AUTO) 0.1 (0.0-0.1); BASOPHILS % 0.7 % (0.0-1.0); EOSINOPHILS # (AUTO) 0.4 (0.0-0.4); EOSINOPHILS % 1.9 % (0.0-6.0); HEMATOCRIT 25.5 % (38.2-49.6); HEMOGLOBIN 7.7 g/dL (14.0-18.0); LYMPHOCYTES # (AUTO) 0.7 (1.0-3.2); LYMPHOCYTES % 3.6 % (18.0-39.1); MEAN CORPUSCULAR HEMOGLOBIN 29.2 pg (28-32); MEAN CORPUSCULAR HGB CONC 30.2 g/dL (31-35); MEAN CORPUSCULAR VOLUME 96.6 fL (81-99); MONOCYTES # (AUTO) 0.9 (0.2-0.8); MONOCYTES % 4.8 % (4.4-11.3); NEUTROPHILS # (AUTO) 15.2 (2.1-6.9); NEUTROPHILS % 80.5 % (38.7-80.0); PLATELET COUNT 222 x10e3/uL (140-360); RED BLOOD COUNT 2.64 x10e6/uL (4.3-5.7)
[2020-05-11 05:30] LABS: ALBUMIN 1.7 g/dL (3.5-5.0); ALBUMIN/GLOBULIN RATIO 0.6 (0.8-2.0); ANION GAP 13.5 mmol/L (8-16); CALCIUM 7.2 mg/dL (8.4-10.2); CREATININE, SERUM 1.62 mg/dL (0.72-1.25); POTASSIUM 3.5 mmol/L (3.5-5.1)
[2020-05-11] MEDS: METOCLOPRAMIDE HCL 10 MG/2ML VIAL IV SCH ×4 (05:47→23:32)
--- NOTE | 2020-05-11 07:00 | NUR ---
Report given to Kade Romero RN.
[2020-05-11] MEDS ORDERED: NOREPINEPHRINE 8 MG/D5W 250 ML 250 ML ONE (07:25)
[2020-05-11] MEDS ORDERED: NOREPINEPHRINE 8 MG/D5W 250 ML 250 ML IV PRN (07:45)
--- NOTE | 2020-05-11 08:35 | Diagnostic Imaging Report ---
Examination: Single AP view of the chest. COMPARISON: 05/10/2020 INDICATION: Pneumonia DISCUSSION: Endotracheal tube, enteric tube, and right internal jugular central venous catheter are unchanged in position compared to prior. Lungs remain reasonably well inflated. No significant interval change in patchy perihilar predominant airspace opacities. Small bilateral pleural effusions right greater than left appear stable. Enlargement of the cardiac silhouette is unchanged compared to prior. No acute osseous abnormalities. IMPRESSION: Stable position of support lines and tubes. Cardiomegaly with stable perihilar predominant airspace opacities, which may reflect edema or multifocal pneumonia. Small right and trace left pleural effusion. Signed by: Dr. Get Mercado M.D. on 05/11/2020 8:31 AM
[2020-05-11 08:36] LABS: ABG HCO3 19 mmol/L (22-26); ABG PCO2 29 mmHg (35-45); ABG PH 7.43 (7.35-7.45); ABG PO2 161 mmHg (80-105)
[2020-05-11] MEDS: POLYETHYLENE GLYCOL 3350 17 GM PACK PO SCH ×2 (09:00→17:00)
--- NOTE | 2020-05-11 09:24 | NUR ---
Pt transferred from IMCU to ICU last night and now is intubated. We will place pt on PT hold at this time and will need new orders to resume skilled PT when pt is appropriate. Thank you. Addendum: 05/11/20 at 924 by ANUJA MCGREGOR SECOND BAKER Amended: Links added.
--- NOTE | 2020-05-11 10:50 | Progress Note ---
DATE: Cardiology Progress Note SUBJECTIVE: The patient had a cardiopulmonary arrest yesterday, transferred to the intensive care unit, currently on mechanical ventilation and low-dose pressors. OBJECTIVE: VITAL SIGNS: Temperature is 99.6, heart rate is 90, respirations are 23, blood pressure is 127/65, and oxygen saturation is 99% on mechanical ventilation. GENERAL: He is a chronically ill-appearing elderly man, sedated, intubated. CARDIOVASCULAR: Regular rate and rhythm with ectopy. LUNGS: Diminished breath sounds at the bases. ABDOMEN: Soft, obese. CARDIOVASCULAR MEDICATIONS: Reviewed, include norepinephrine. LABORATORY DATA: Reviewed, shows a white blood cell count of 18.8, hemoglobin is 7.7, and platelets are 222. Creatinine is 1.62, potassium 3.5, and calcium 7.2. Chest x-ray shows cardiomegaly with multifocal pneumonia. IMPRESSION: 1. Cardiopulmonary arrest. 2. Acute on chronic respiratory failure. 3. Septic shock. 4. Aspiration pneumonia. 5. Anemia. 6. Leukocytosis. 7. Paroxysmal atrial fibrillation. 8. History of wide-complex tachycardia. 9. Acute on chronic kidney disease. 10. Peripheral arterial disease. 11. Coronary artery disease. RECOMMENDATIONS: Continue current cardiovascular medications including Lasix, amiodarone, clopidogrel, atorvastatin, and aspirin. Hold antihypertensives. Wean norepinephrine. Ventilator management per Pulmonary Critical Care. Continue antibiotic therapies. DO BHARATH Song/CRESENCIOL /[id number]
[2020-05-11 11:10] LABS: BAND NEUTROPHILS % (MANUAL) 7 %; LYMPHOCYTES % (MANUAL) 3 % (19-48); MONOCYTES % (MANUAL) 2 % (3.4-9.0); NEUTROPHILS % (MANUAL) 88 % (40-74)
[2020-05-11] MEDS: FAMOTIDINE 20 MG/2 ML VIAL IV SCH ×2 (11:17→18:00)
[2020-05-11] MEDS: ATORVASTATIN 20 MG TAB PO SCH (11:17)
[2020-05-11] MEDS: CLOPIDOGREL BISULFATE 75 MG TAB PO SCH (11:17)
[2020-05-11] MEDS: AMIODARONE HCL 200 MG TAB PO SCH ×2 (11:17→17:00)
[2020-05-11] MEDS: ASCORBIC ACID 500 MG TAB PO SCH ×2 (11:17→17:00)
[2020-05-11] MEDS: ZINC SULFATE 220 MG CAP PO SCH (11:17)
[2020-05-11] MEDS: PANTOPRAZOLE 40 MG 10ML VIAL IV SCH ×2 (11:17→21:55)
[2020-05-11] MEDS: ASPIRIN 81 MG CHEW TAB PO SCH (11:17)
[2020-05-11] MEDS: HYDROXYCHLOROQUINE SULFATE 200 MG TAB PO SCH ×2 (11:17→17:00)
[2020-05-11] MEDS: TAMSULOSIN HCL 0.4 MG CAP PO SCH (11:17)
[2020-05-11] MEDS: CEFEPIME 1GM/NS 0.9% 50 ML 50 ML IV SCH ×2 (11:40→23:32)
[2020-05-11] MEDS: ENOXAPARIN SOD INJ 40 MG/0.4 ML SYR SC SCH (11:40)
--- NOTE | 2020-05-11 14:06 | Progress Note ---
DATE: Pulmonary Critical Care Progress Note SUBJECTIVE: The patient is still on mechanical ventilator with a PRVC mode of ventilation. He is on propofol at 30 mcg. His Levophed was weaned to 5 mcg. He is started on bicarbonate drip. He was evaluated by Nephrology this morning. PHYSICAL EXAMINATION: VITAL SIGNS: The blood pressure is 127/58 and saturation is 100% on a PRVC mode of ventilation at a rate of 16. Tidal volume is 500 mL. FiO2 is 45% and the PEEP is 5. HEENT: Shows no facial swelling or erythema. There is a right IJ line. The site looks clean. There is no drainage. There is an oral endotracheal tube. CARDIAC: Reveals regular rate and rhythm with normal S1 and S2. LUNGS: Auscultation of lungs reveals rhonchorous breath sounds bilaterally. There is no wheezing. ABDOMEN: Soft and nontender. There is no rebound or guarding. EXTREMITIES: Shows no leg edema or calf tenderness. There is no cyanosis or clubbing. SKIN: Shows no rashes. NEUROLOGICAL: Shows no focal abnormalities. LABORATORY DATA: The BUN to creatinine ratio is 32 to 1.62, carbon dioxide was 18, and potassium is 3.5. The AST is 38 and the albumin is 1.7. IMPRESSION: 1. Mqiqe-zb-sgwswvc respiratory failure. 2. Aspiration pneumonia with sepsis. 3. Acute kidney injury. 4. Paroxysmal atrial fibrillation. 5. Coronary artery disease. 6. Anemia. PLAN: 1. Continue to wean off Levophed. 2. Cefepime and vancomycin as antibiotics for healthcare-acquired organisms and possible aspiration. 3. Continue bicarbonate drip. 4. Decrease minute ventilation and repeat ABG later this evening. 5. Continue sedation with Diprivan. 6. Continue Lovenox. 7. Monitor renal function. Greater than 35 minutes in direct critical care time. Keegan Hernandez MD [facility]/MODL /[id number]
[2020-05-11] MEDS ORDERED: DEXMEDETOMIDINE 200MCG/NS 50ML 50 ML IV ONE (18:30)
[2020-05-11] MEDS: DEXMEDETOMIDINE 200MCG/NS 50ML 50 ML IV PRN ×2 (18:35→20:48)
--- NOTE | 2020-05-11 19:00 | NUR ---
Report received from Kade Romero RN.
--- NOTE | 2020-05-11 19:27 | Progress Note ---
DATE: SUBJECTIVE: Mr. Boo remains in intensive care. He is on a ventilator, on propofol and levophed that is being weaned down. OBJECTIVE: VITAL SIGNS: His blood pressure 120/50. HEENT: He is not icteric. NECK: Supple. CHEST: Few crackles. HEART: S1 and S2. No murmurs. ABDOMEN: Soft. IMPRESSION: 1. Sepsis, getting better. 2. Aspiration pneumonia, improving. 3. Acute kidney injury, improving. 4. Respiratory failure, improving. 5. Shock, continues to be improving. 6. Continue to wean vasopressors. Discussed with the medical team. 7. He is currently on cefepime. Medication list reviewed. We will follow. Josh Scales MD [facility]/MODL /[id number]
--- NOTE | 2020-05-11 20:55 | NUR ---
ABG results read to Dr. Sophie Hernandez, telephone order received to decrease TV to 480, and to hold sedation in the morning at 0700 for spontaneous breathing and weaning trial.
--- NOTE | 2020-05-11 20:59 | Diagnostic Imaging Report ---
EXAM: ABDOMEN-1VIEW (KUB), DATE: 05/11/2020 7:00 PM INDICATION: Nasogastric tube placement. COMPARISON: 05/09/2020 FINDINGS: The images are severely limited by motion artifact and underpenetration. Support devices: There has been placement of a nasogastric tube which likely terminates within the gastroesophageal junction Bowel gas. Nonobstructive. Bones: Multilevel degenerative disc disease of the spine. Others: None. IMPRESSION: Limited examination by motion artifact and underpenetration.Nasogastric tube which likely terminates in the gastroesophageal junction. Recommend repeat imaging and tube advancement if indicated. The images were reviewed by Elayne Griffith MD. Signed by: Elayne Griffith MD on 05/11/2020 8:56 PM
[2020-05-11 22:37] LABS: ABG PCO2 33 mmHg (35-45); ABG PH 7.42 (7.35-7.45); ABG PO2 88 mmHg (80-105)
[2020-05-11 22:38] LABS: ABG HCO3 22 mmol/L (22-26)
[2020-05-12] MEDS: PROPOFOL IV EMULSION 10MG/ML 100 ML IV PRN (01:33)
[2020-05-12] MEDS ORDERED: BISACODYL 10 MG SUPP PR STA (02:41)
--- NOTE | 2020-05-12 04:14 | Progress Note ---
DATE: 05/11/2020 SUBJECTIVE: The patient is lying supine in bed, remains on mechanical ventilation, sedated and off pressors. NG tube to suction. Per documentation, plan is for all sedation to be removed at 7 a.m. for spontaneous breathing and weaning trial. OBJECTIVE: VITAL SIGNS: Temperature 99.6, heart rate 90, blood pressure 135/66, respirations 23, oxygen saturation 99%. Intake and output 5000 mL in and 1800 mL out. GENERAL: Sedated. LUNGS: With rhonchi. Size 8 ET tube. Currently on PRVC, rate 16, FiO2 of 45%, tidal volume 480, PEEP 5, minute ventilation 9.2, peak pressure 20. HEENT: Left nares NG tube to intermittent low wall suction, green drainage. NECK: Supple. CARDIOVASCULAR: Regular rate and rhythm without murmur. D5W with 1 amp of sodium bicarbonate infusing at 50 mL an hour. He is no longer on Levophed. Has a right IJ triple-lumen central venous catheter. ABDOMEN: Hypoactive bowel sounds. Distention, improved since yesterday. Gillette catheter with vadim urine. EXTREMITIES: 2+ pitting edema. No clubbing, cyanosis, or marked swelling or signs of DVT. Bilateral soft, wrist restraints and SCDs are in place. NEUROLOGIC: Sedated with Precedex. Propofol was discontinued. LABORATORY DATA: WBCs 18.8, hemoglobin 7.7, hematocrit 25.5, platelets 222, neutrophils 80.5. Sodium 141, potassium 3.5, chloride 112, CO2 19, BUN 32, creatinine 1.62, glucose 119. Fingerstick blood glucose level 142, calcium 7.2, total bilirubin 0.6, AST 38, ALT 27, alkaline phosphatase 148, total protein 4.4, albumin 1.7. ABG this morning, pH 7.43, pCO2 29, pO2 161, HCO3 19, oxygen saturation 100%. Base excess -5. FiO2 of 70%. Chest x-ray was done today. Stable position of support lines and tubes. Cardiomegaly with stable perihilar predominant airspace opacities, which may reflect edema or multifocal pneumonia. Small right and trace left pleural effusion. KUB showed nasogastric tube, which likely terminates in the gastroesophageal junction. ASSESSMENT AND PLAN: 1. Status post cardiopulmonary arrest on 05/10/2020, probable aspiration, status post intubation. Continue ventilator weaning per Pulmonology/CCM. Spontaneous breathing and weaning trial to begin at 7 a.m. with all sedation on hold. 2. Bilateral multifocal viral CAP, POA, due to coronavirus disease-2019 with sepsis. WBC 18.8. Levophed was weaned off. Continue Rocephin/azithromycin, DuoNeb, Lovenox, vitamin C, and zinc sulfate. 3. Acute kidney injury on chronic kidney disease, stage 3. Continue bicarbonate drip per Nephrology recommendations. 5000 mL in and 1800 mL out. 4. Fecal impaction, possible ileus. Gastroenterology following. NG tube to intermittent low wall suction. HIDA scan was negative. No BM today. Dulcolax suppository x2. Case discussed with Dr. Dobbs. 5. Paroxysmal atrial fibrillation. Cardiology following. Continue beta-jigar, amiodarone. 6. Transaminitis. Monitor LFTs. 7. Prophylaxis, Protonix, Pepcid and Lovenox. Time spent 35 minutes. Billing code 25919. Dictated by Rishi Sheikh NP MD JACOB SnowP/CRESENCIOL /[id number]
[2020-05-12] MEDS: ALBUTEROL/IPRATROPIUM 3 ML NEB NEB SCH ×4 (04:15→15:00)
[2020-05-12] MEDS: METOCLOPRAMIDE HCL 10 MG/2ML VIAL IV SCH ×2 (05:29→11:40)
[2020-05-12 05:36] LABS: BASOPHILS # (AUTO) 0.1 (0.0-0.1); BASOPHILS % 0.4 % (0.0-1.0); EOSINOPHILS % 0.1 % (0.0-6.0); HEMATOCRIT 25.5 % (38.2-49.6); HEMOGLOBIN 7.8 g/dL (14.0-18.0); LYMPHOCYTES # (AUTO) 0.6 (1.0-3.2); LYMPHOCYTES % 3.7 % (18.0-39.1); MEAN CORPUSCULAR HEMOGLOBIN 28.3 pg (28-32); MEAN CORPUSCULAR HGB CONC 30.6 g/dL (31-35); MEAN CORPUSCULAR VOLUME 92.4 fL (81-99); MONOCYTES # (AUTO) 0.8 (0.2-0.8); NEUTROPHILS # (AUTO) 14.3 (2.1-6.9); NEUTROPHILS % 84.7 % (38.7-80.0); PLATELET COUNT 230 x10e3/uL (140-360); RED BLOOD COUNT 2.76 x10e6/uL (4.3-5.7); RED CELL DISTRIBUTION WIDTH 16.5 % (11.7-14.4)
[2020-05-12 06:00] VITALS: BP 146/67
[2020-05-12] MEDS ORDERED: ENOXAPARIN SOD INJ 40 MG/0.4 ML SYR SC SCH (06:00)
[2020-05-12 06:04] LABS: ALBUMIN 1.7 g/dL (3.5-5.0); ALBUMIN/GLOBULIN RATIO 0.5 (0.8-2.0); ANION GAP 10.9 mmol/L (8-16); CALCIUM 7.7 mg/dL (8.4-10.2); CREATININE, SERUM 1.32 mg/dL (0.72-1.25)
[2020-05-12 06:13] LABS: POTASSIUM 2.9 mmol/L (3.5-5.1)
[2020-05-12] MEDS ORDERED: POTASSIUM CHLORIDE 20MEQ/100ML 100 ML ONE (06:28)
[2020-05-12] MEDS ORDERED: POTASSIUM CHLORIDE 20MEQ/100ML 100 ML IV ONE (06:30)
[2020-05-12 07:00] VITALS: BP 123/68
[2020-05-12 08:00] VITALS: BP 118/98
[2020-05-12 08:10] LABS: LYMPHOCYTES % (MANUAL) 5 % (19-48); MONOCYTES % (MANUAL) 3 % (3.4-9.0); NEUTROPHILS % (MANUAL) 92 % (40-74)
[2020-05-12 08:11] LABS: ANISOCYTOSIS SLIGHT; PLATELET ESTIMATE ADEQUATE; PLATELET MORPHOLOGY COMMENT NORMAL; RBC MORPHOLOGY COMMENT NORMAL
--- NOTE | 2020-05-12 08:24 | Diagnostic Imaging Report ---
X-ray chest AP portable Comparison: 05/11/2020 History: Respiratory failure Findings: Life support lines and tubes unchanged. There is redistribution of the pulmonary infiltrates with better aeration of the upper lung zones and more dense infiltrates involving bilateral lower lung zones. Impression: As above Signed by: Kameron Murdock MD on 05/12/2020 8:21 AM
[2020-05-12] MEDS ORDERED: POTASSIUM CHLORIDE 20MEQ/100ML 200 ML IV ONE (08:45)
[2020-05-12 09:00] VITALS: BP 128/75
[2020-05-12] MEDS: CLOPIDOGREL BISULFATE 75 MG TAB PO SCH (09:01)
[2020-05-12] MEDS: ATORVASTATIN 20 MG TAB PO SCH (09:01)
[2020-05-12] MEDS: ZINC SULFATE 220 MG CAP PO SCH (09:01)
[2020-05-12] MEDS: AMIODARONE HCL 200 MG TAB PO SCH (09:01)
[2020-05-12] MEDS: HYDROXYCHLOROQUINE SULFATE 200 MG TAB PO SCH (09:01)
[2020-05-12] MEDS: ASPIRIN 81 MG CHEW TAB PO SCH (09:01)
[2020-05-12] MEDS: PANTOPRAZOLE 40 MG 10ML VIAL IV SCH (09:01)
[2020-05-12] MEDS: ASCORBIC ACID 500 MG TAB PO SCH (09:01)
[2020-05-12] MEDS: POLYETHYLENE GLYCOL 3350 17 GM PACK PO SCH (09:01)
[2020-05-12] MEDS: TAMSULOSIN HCL 0.4 MG CAP PO SCH (09:01)
[2020-05-12] MEDS: FAMOTIDINE 20 MG/2 ML VIAL IV SCH (09:01)
[2020-05-12 09:02] LABS: MAGNESIUM 1.6 MG/DL (1.3-2.1)
--- NOTE | 2020-05-12 09:43 | NUR ---
WOUND CARE CONSULT FOR REPORTED DTI TO [facility] COMMUNICATION WITH NURSING AT BEDSIDE PATIENT UNSTABLE AT THIS TIME UNABLE TO POSITION PATIENT FOR VISUAL ASSESSMENT PATIENT HAS ALLEVYN FOAM DRESSING IN PLACE TO PREVENT FRICTION AND SHEAR FORCE ALTERNATING PRESSURE SURFACE AND SIDE WEDGES USED AT LEAST EVERY TWO HOURS PATIENT COMPLETE SKIN ASSESSMENT BY WOUND CARE WILL BE COMPLETED WHEN PATIENT STATUS AND POSITIONING PERMITS Addendum: 05/12/20 at 0948 by Luiz Valle RN Amended: Links added.
--- NOTE | 2020-05-12 09:55 | NUR ---
Attempted CPAP at 8/5, pt not tolerating well, placed back on PVRC per respiratory.
[2020-05-12 10:00] VITALS: BP 116/62
--- NOTE | 2020-05-12 10:50 | Progress Note ---
DATE: Pulmonary Critical Care Progress Note SUBJECTIVE: The patient has been weaned off Levophed. He remains on Precedex. He was placed on a spontaneous breathing trial this morning, but became very tachypneic. He still has some secretions from his endotracheal tube. PHYSICAL EXAMINATION: VITAL SIGNS: The blood pressure is 116/62 and saturation is 98%. He is currently on a PRVC mode of ventilation at a rate of 16 with a tidal volume of 650 and PEEP of 5. His FiO2 is set at 45%. HEENT: Shows no facial swelling or erythema. LYMPHATIC: Shows no submandibular, cervical, or supraclavicular adenopathy. He has a right central line in place. The site looks clean. CARDIAC: Reveals regular rate and rhythm with normal S1 and S2. LUNGS: Auscultation of lungs reveals rhonchorous breath sounds bilaterally. There is no wheezing. ABDOMEN: Soft and nontender. There is no rebound or guarding. EXTREMITIES: Shows no leg edema or calf tenderness. There is no cyanosis or clubbing. SKIN: Shows no rashes. LABORATORY DATA: White blood cell count is 16.9 and the hemoglobin is 7.8. The platelet count is 230. The BUN to creatinine ratio is 35 to 1.32 and the potassium is 2.9. The albumin is 1.7. RADIOGRAPHIC DATA: Chest x-ray shows continued infiltrates. IMPRESSION: 1. Aspiration pneumonia and sepsis. 2. Lleyv-jg-qvjfjmw respiratory failure. 3. Omeqi-iv-yabhlrb kidney injury. 4. Anemia, unspecified. 5. Paroxysmal atrial fibrillation. 6. Coronary artery disease. PLAN: 1. Continue current antibiotics and await culture results. 2. Continue mechanical ventilation for now and re-attempt spontaneous breathing trial tomorrow. 3. Continue Diprivan and Precedex. 4. Continue Lovenox. 5. Continue bicarbonate drip and monitoring of creatinine along with electrolytes. 6. Case discussed with shift coordinator nursing, day shift nursing, Respiratory, Nephrology, and family. Greater than 35 minutes in direct critical care time. Keegan Hernandez MD [facility]/CRESENCIOL /[id number]
[2020-05-12 11:00] VITALS: BP 90/50
[2020-05-12] MEDS ORDERED: MINERAL OIL 132 ML BTL PR ONE (11:00)
--- NOTE | 2020-05-12 11:00 | NUR ---
Peak pressures noted to be in the 40's and 50's on vent. MD made aware, sedation increased per MD order. No other orders received at this time.
[2020-05-12] MEDS: SODIUM BICARBONATE 8.4% SYRING 150 ML in DEXTROSE 5% 1,000 ML IV SCH (11:19)
[2020-05-12] MEDS: CEFEPIME 1GM/NS 0.9% 50 ML 50 ML IV SCH (11:40)
[2020-05-12] MEDS: DEXMEDETOMIDINE 200MCG/NS 50ML 50 ML IV PRN (11:40)
--- NOTE | 2020-05-12 12:00 | NUR ---
Peak pressures noted to be 72 on vent, O2 sats noted to be 58%. Dr Hernandez made aware, new orders for chest xray received and put in. Respiratory at bedside.
--- NOTE | 2020-05-12 12:05 | NUR ---
Peak pressures continue to be high, sats noted to be in the 50's, MD at bedside.
--- NOTE | 2020-05-12 12:15 | NUR ---
Code Blue called, compressions started at this time. See flowsheet for full code.
[2020-05-12] MEDS ORDERED: ROCURONIUM BROMIDE 2 ML IV ONE (12:21)
[2020-05-12] MEDS ORDERED: NOREPINEPHRINE 8 MG/D5W 250 ML 250 ML ONE (12:24)
[2020-05-12 13:08] LABS: ABG HCO3 24 mmol/L (22-26); ABG PCO2 39 mmHg (35-45); ABG PH 7.39 (7.35-7.45); ABG PO2 85 mmHg (80-105)
[2020-05-12] MEDS ORDERED: AMIODARONE HCL INJ 150MG/3ML ONE (13:15)
[2020-05-12] MEDS ORDERED: SODIUM BICARBONATE ONE (13:15)
[2020-05-12] MEDS ORDERED: SODIUM CHLORIDE FLUSH 10 ML SYR ONE (13:15)
[2020-05-12] MEDS ORDERED: LIDOCAINE HCL 2% 100 MG/5 ML IV ONE (13:15)
[2020-05-12] MEDS ORDERED: EPINEPHRINE HCL SYRINGE ONE (13:15)
--- NOTE | 2020-05-12 13:22 | NUR ---
Mis Director responded to Code Blue. Provided supportive pastoral presence for staff. Followed up with RN. Will mail condolence letter and brochure on grief to [facility]. SHAE MAJANO Mis Director Spiritual Care Department O: [phone]
--- NOTE | 2020-05-12 13:35 | Progress Note ---
DATE: ADDENDUM: I was called by the nursing staff because of elevated peak pressures. The patient's sedation was increased, but the patient's peak pressures did not improve. A stat portable chest x-ray was ordered and pending. When I arrived at the bedside, I noticed low exhaled tidal volumes and high airway pressures. The patient was saturating okay. When I arrived at the bedside, the patient is not doing well. He was ventilated with an Ambu bag. He is initially on Ambu bag. We subsequently noticed no pulse. CPR was initiated and roberta spear was called. The patient received epinephrine x1 followed by bicarbonate. We continued CPR and he received epinephrine again. The placement of the ET tube was checked. We noticed some decreased breath sounds on the left side as well as some subcutaneous air on the left side. A percutaneous chest tube was placed through the needle. There was a significant air leak. The patient initially had some pulse, but continue to have a ventricular fibrillation. He was defibrillated 3 times and given amiodarone as well as lidocaine. Unable to resuscitate the patient. Roberta spear was called. The patient was pronounced. Keegan Hernandez MD [facility]/[place] /[id number]
--- NOTE | 2020-05-12 14:00 | Operative Report ---
DATE OF PROCEDURE: SURGEON: Keegan Hernandez MD PROCEDURE: Percutaneous chest tube placement. PREOPERATIVE DIAGNOSIS: Left-sided pneumothorax. POSTOPERATIVE DIAGNOSIS: Left-sided pneumothorax. CONSENT: Consent was deemed emergent based on hemodynamic instability. PROCEDURE IN DETAIL: Left anterior chest wall was prepped sterilely at the 2nd intercostal space in the midclavicular line. An 18-gauge needle was used to enter the pleural space through the 2nd intercostal space. There was significant air leak. An 18-Albanian chest tube was then placed over the needle by the Seldinger technique. It was subsequently hooked up to a Pleur-evac. There was good respiratory variation and significant air leak. ESTIMATED BLOOD LOSS: None. COMPLICATIONS: No direct complications from chest tube placement. The patient was in a cold blue at the time of the procedure and did not survive the resuscitation. Keegan Hernandez MD [facility]/MODL /[id number]
--- NOTE | 2020-05-12 16:00 | NUR ---
Family at bedside, Valentine called per patient's family request
--- NOTE | 2020-05-12 16:16 | Progress Note ---
DATE: SUBJECTIVE: Mr. Boo remains in intensive care unit, intubated. The patient had a chest tube placed. CPR was initiated. Events noted. PHYSICAL EXAMINATION: GENERAL: He is noncommunicative and sedated. HEENT: Not icteric. NECK: Supple. CHEST: Crackles. IMPRESSION: Aspiration pneumonia, sepsis, jxofd-nf-kxmvkzn respiratory failure, acute kidney injury, anemia, and coronary artery disease. Continue antibiotic as ordered. Prognosis remains very guarded. Discussed at length with all medical team. Laboratory data reviewed. Chart reviewed. We will follow. MD FRANCIE Francisco/MODYaritza /[id number]
--- NOTE | 2020-05-12 17:09 | NUR ---
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 Patient belongings sent with patient family.
--- NOTE | 2020-05-12 19:07 | Discharge Summary ---
DATE OF : 05/12/2020. PRIMARY CARE PHYSICIAN: Dwayne Raymond DO CONSULTING PHYSICIANS: 1. Keegan Hernandez MD, with Pulmonology and Critical Care Medicine. 2. Josh Scales MD, with Infectious Disease. 3. Neeraj Valencia MD, with Cardiology. 4. Get Patricio MD, with orthopedics. 5. Tu Dobbs MD, with Gastroenterology. 6. Dr. Rodriguez with Nephrology. CHIEF COMPLAINT: Generalized weakness. HISTORY OF PRESENT ILLNESS: The patient was a 75-year-old male, who admitted with complaints of generalized weakness. He had a left ankle surgery a few weeks ago and had not been walking much since. He has been so weak in the 2-3 days prior to admission that he had not taken any of his medications. He had associated dyspnea on exertion and productive cough. He denied fever, sick contacts, or focal weakness. PAST MEDICAL HISTORY: Rheumatoid arthritis, chronic kidney disease stage 3, hypertension, BPH, gastroesophageal reflux disease, NV, lower extremity stent. PAST SURGICAL HISTORY: Left ankle repair. FAMILY HISTORY: Noncontributory. SOCIAL HISTORY: Noncontributory. ALLERGIES: PENICILLIN. ADMITTING DIAGNOSES: 1. Tachycardia. 2. Urinary tract infection with septic shock/retention. 3. Bilateral pneumonia with septic shock, present on arrival. 4. Constipation/fecal impaction. On admission, WBCs 23.58, RBCs 3.67, hemoglobin 10.5, hematocrit 33.9, platelets 88,100, anion gap 25.5, BUN 41, creatinine 2.25, estimated GFR 29. Lactic acid 7.1. Serology 05/04 Coronavirus PCR was not detected. Hepatitis panel was negative. Blood cultures x2 showed Staphylococcus species coag negative on one of the blood cultures. Initial chest x-ray had shown patchy density in the lung bases suggestive of subsegmental atelectasis. CT of the abdomen and pelvis had shown findings consistent with constipation, fecal impaction, and mild sigmoid colitis. HIDA scan was done on 05/08, which showed filling of the gallbladder excludes acute cystic duct obstruction/acute cholecystitis. The gallbladder ejection fraction undefined as there was no emptying of the gallbladder during the infusion of sincalide, which supports the clinical diagnosis of chronic cholecystitis/gallbladder dyskinesia. 05/06, diagnosis of bilateral pneumonia with septic shock was noted. He was suspected to have COVID-19. However, his test came back negative. He had a digital disimpaction for the fecal impaction. NG tube and oral medications also used, amiodarone and Plavix for the tachycardia after cardioversion in the emergency department. Has history of angioplasty of the left femoral artery and PTCA. He was status post ORIF of the left ankle, [address] Patricio with Orthopedics, he was okay to be weightbearing as tolerated with tib-fib arthrosis and walker since medically cleared for physical therapy. Nephrology was consulted on or about 05/09 for GFR 37 and probable chronic kidney disease stage 3. At that time, he was on high-flow nasal cannula at 7 L/minute, had tender abdomen, hypoactive bowel sounds. 05/10, lactic acid 0.7. On 05/10, the patient had a Code Blue, was found with agonal breathing. Ambu bag was utilized. I witnessed pulseless electrical activity, was given one round of epinephrine. Levophed was started due to hypotension. He had return of spontaneous circulation. He was intubated by Dr. Salinas, the emergency department physician, when the patient was in IMU room 197, subsequently transferred to ICU room 195 and a size #8 ET tube and 24 cm at the lip on , tidal volume 500, FiO2 of 100%, PEEP of 5, peak pressures at that time 34. Respiratory rate 23, minute ventilation 12 L/minute. On Levophed 30 mcg/minute. Sedated with propofol 35 mcg/kg/minute. At that time, it was felt that he probably aspirated. He was placed on bicarbonate drip. He continued to have abdominal distention, but it was improved. Levophed was weaned off. Plan for today 05/12 was for all sedation to be removed at 7 a.m. for spontaneous breathing and weaning trial. The patient was on PRVC 16, FiO2 of 45%, tidal volume 480, PEEP of 5, minute ventilation 9.2, peak pressure of 20 on the night of 05/11/2020. Then, today 05/12, the patient had elevated peak pressures on the ventilator. Blood pressure was stable. His blood pressure did momentarily drop when propofol was started; however, the MAP was never below 60. He lost his pulse and a Code Blue was called. The code lasted about an hour and Dr. Hernandez with Critical Care Medicine was at the bedside and a needle decompression was done for probable pneumothorax on the left side and chest tube was set up. The pneumothorax seemed obvious it was likely secondary to elevated peak pressures. Although multiple attempts and interventions were made, there was no return of spontaneous circulation and the patient . The time of was 12:54 in the afternoon. The patient's was notified and the case was discussed with Sneha, the patient's nurse, as well as Dr. Ellington as probable underlying pathology was aspiration pneumonia, which likely caused the elevated peak pressures leading to a tension pneumothorax. Dictated by Rishi Sheikh NP MD JACOB SnowP/CRESENCIOL /[id number]
== END 2020-05-12 17:10 | disposition expired | DRG 871 ==
LOC: ER 17:30 → ERHOLD 17:40 → ICU 23:45 → IMCU 05-07 18:30 → ICU 05-10 20:36
PROVIDERS: ADMIT Internal Medicine; ATTEND Internal Medicine
PROC: 5A2204Z Restoration of Cardiac Rhythm, Single (ICD-10-PCS; principal; 2020-05-04)
PROC: 8E0ZXY6 Isolation (ICD-10-PCS; 2020-05-04)
PROC: 02HV33Z Insertion of Infusion Device into Superior Vena Cava, Percutaneous Approach (ICD-10-PCS; 2020-05-06)
PROC: B548ZZA Ultrasonography of Superior Vena Cava, Guidance (ICD-10-PCS; 2020-05-06)
PROC: 30233N1 Transfusion of Nonautologous Red Blood Cells into Peripheral Vein, Percutaneous Approach (ICD-10-PCS; 2020-05-08)
PROC: 5A12012 Performance of Cardiac Output, Single, Manual (ICD-10-PCS; 2020-05-10)
PROC: 5A1945Z Respiratory Ventilation, 24-96 Consecutive Hours (ICD-10-PCS; 2020-05-10)
PROC: 0BH17EZ Insertion of Endotracheal Airway into Trachea, Via Natural or Artificial Opening (ICD-10-PCS; 2020-05-10)
PROC: 3E053XZ Introduction of Vasopressor into Peripheral Artery, Percutaneous Approach (ICD-10-PCS; 2020-05-10)
PROC: 5A12012 Performance of Cardiac Output, Single, Manual (ICD-10-PCS; 2020-05-12)
PROC: 5A2204Z Restoration of Cardiac Rhythm, Single (ICD-10-PCS; 2020-05-12)
PROC: 0W9B30Z Drainage of Left Pleural Cavity with Drainage Device, Percutaneous Approach (ICD-10-PCS; 2020-05-12)
DX: A40.9 Streptococcal sepsis, unspecified (principal); J18.9 Pneumonia, unspecified organism; R65.21 Severe sepsis with septic shock; G93.41 Metabolic encephalopathy; J96.21 Acute and chronic respiratory failure with hypoxia; J69.0 Pneumonitis due to inhalation of food and vomit; J12.9 Viral pneumonia, unspecified; J93.0 Spontaneous tension pneumothorax; N17.9 Acute kidney failure, unspecified; I47.2 Ventricular tachycardia; N39.0 Urinary tract infection, site not specified; I13.0 Hypertensive heart and chronic kidney disease with heart failure and stage 1 through stage 4 chronic kidney disease, or unspecified chronic kidney disease; I50.32 Chronic diastolic (congestive) heart failure; D62 Acute posthemorrhagic anemia; K56.7 Ileus, unspecified; E87.1 Hypo-osmolality and hyponatremia; K82.1 Hydrops of gallbladder; N18.3 Chronic kidney disease, stage 3 (moderate); Z95.5 Presence of coronary angioplasty implant and graft; M19.90 Unspecified osteoarthritis, unspecified site; Z88.0 Allergy status to penicillin; E11.22 Type 2 diabetes mellitus with diabetic chronic kidney disease; I25.10 Atherosclerotic heart disease of native coronary artery without angina pectoris; N40.0 Benign prostatic hyperplasia without lower urinary tract symptoms; M06.9 Rheumatoid arthritis, unspecified; K56.41 Fecal impaction; Z95.820 Peripheral vascular angioplasty status with implants and grafts; Z87.891 Personal history of nicotine dependence; Z11.59 Encounter for screening for other viral diseases; D64.9 Anemia, unspecified; N25.89 Other disorders resulting from impaired renal tubular function; I48.0 Paroxysmal atrial fibrillation; K81.1 Chronic cholecystitis; K82.8 Other specified diseases of gallbladder; K52.89 Other specified noninfective gastroenteritis and colitis; Z98.890 Other specified postprocedural states; M25.572 Pain in left ankle and joints of left foot
CPT/HCPCS: 31500; 36415; 36600; 71045; 74018; 74176; 78227; 80048; 80053; 80061; 81001; 82140; 82150; 82550; 82553; 82570; 82805; 82948; 83605; 83690; 83735; 83880; 84100; 84300; 84443; 84484; 85025; 85045; 86850; 86900; 86920; 87040; 87071; 87086; 87186; 87205; 92950; 93005; 93041; 93306; 94002; 94640; 97139; 99285; A9537; J0171; J0456; J0692; J0696; J1160; J1650; J1940; J2001; J2270; J2405; J2765; J2930; J3370; J3475; J3480; J7030; J7040; J7050; J7070; J7121; P9016; U0002